=== PATIENT | female | born 1945 | race Caucasian/White ===

== ENCOUNTER 2020-01-28 15:56 | Emergency (ER) | payer MEDICARE, SELFPAY ==
--- NOTE | ~2020-01-28 | XR_ITS ---
XR knee RT min 4V 01/28/2020 17:38 INDICATION: Right knee pain after fall PROCEDURE: 4 views right knee COMPARISON: Comparison to multiple prior studies sequentially, with oldest reviewed study dated 05/20. FINDINGS: Fracture, dislocation or subluxation is not identified. Osteopenia. Moderate prepatellar so ft tissue swelling. No significant joint space narrowing. No foreign bodies are identified. IMPRESSION: 1: NO ACUTE BONE OR JOINT ABNORMALITY IDENTIFIED. Reviewed, dictated and finalized at location A. 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
--- NOTE | ~2020-01-28 | CT_ITS ---
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 TECHNIQUE: Computed tomography (CT) of the pelvis was performed without intravenous contrast. CT tracy nstructions of the right knee were obtained in the axial, coronal, and sagittal planes. The dose-jimena th product was 322.30 mGy-cm. Automated exposure control and iterative reconstruction technique were employed. COMPARISON: Right knee series dated 01/28/2020 FINDINGS: There is anatomic alignment of the right knee. No acute fracture, subluxation or dislocatio n. Small loose body noted in the anterior aspect of the joint space. Small joint effusion. Generalize d osteopenia. IMPRESSION: 1. No acute fracture. If there is continuing concern for subtle nondisplaced fracture, further evalua tion with MRI may be performed. 2: Small joint effusion. Reviewed, dictated and finalized at location A. 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 No acute fracture. If there is continuing concern for subtle nondisplaced fr acture, further evaluation with MRI may be performed. 2: Small joint effusion.
[2020-01-28 16:39] VITALS: BP 140/84; PULSE 71; RESP 20; TEMP 36.4; O2SAT 98
--- NOTE | 2020-01-28 17:39 | ED.FALL ---
HPI - Fall General Source: patient and family Mode of arrival: ambulatory Limitations: no limitations History of Present Illness HPI Narrative: She comes in after having a fall on Sunday. She has had continual right knee pain moderately severe, and ongoing since the fall. This has not been relieved by measures taken at home. She fell on her right knee, a few days ago and has had ongoing pain since that fall as well. Related Data Home Medications Medication Instructions Recorded Confirmed alprazolam 0.5 mg PO DAILY PRN 01/28/20 01/28/20 amlodipine 10 mg PO DAILY 01/28/20 01/28/20 metformin 500 mg PO BID 01/28/20 01/28/20 mirtazapine 15 mg PO HS 01/28/20 01/28/20 omeprazole 40 mg PO DAILY 01/28/20 01/28/20 Allergies Allergy/AdvReac Type Severity Reaction Status Date / Time albuterol Allergy Unknown Unknown Verified 01/28/20 16:48 Antihistamines - Alkylamine Allergy Unknown Unknown Verified 01/28/20 16:48 atorvastatin Allergy Unknown Unknown Verified 01/28/20 16:48 ciprofloxacin Allergy Unknown Unknown Verified 01/28/20 16:48 sulfanilamide Allergy Unknown Unknown Verified 01/28/20 16:48 Review of Systems Constitutional: Constitutional: Reports no additional constitutional complaints Eyes: Eyes: Reports no additional eye complaints ENT: Reports system reviewed and no additional complaints, except as documented Cardiovascular: Cardiovascular: Reports no additional cardiovascular complaints Respiratory: Respiratory: Reports no additional respiratory complaints Gastrointestinal: Gastrointestinal: Reports no additional gastrointestinal complaints Genitourinary: Genitourinary: Reports no additional female genitourinary complaints Musculoskeletal: Musculoskeletal: Reports no additional musculoskeletal complaints Integumentary/Breasts: Skin/Breast: Reports system reviewed and no additional complaints, except as docu Neurologic: Reports system reviewed and no additional complaints, except as documented Psychiatric: Psychiatric: Reports no additional psychiatric complaints Endocrine: Endocrine: Reports no additional endocrine complaints Hematologic/Lymphatic: Hematologic/Lymphatic: Reports no additional hematologic/lymphatic complaints Allergic/Immunologic: Allergic/Immunologic: Reports no additional allergic/immunologic complaints [facility] Family History Family History Sibling Cerebrovascular accident Family history of diabetes mellitus in first degree relative Father Family history of congestive heart failure Other Family history of cardiovascular disease Social History Social History Alcohol intake: never Gender identity (if verbalized by the patient): Female Exam Const: General: no acute distress Course Vital Signs Vital signs: Vital Signs Temperature 36.4 C 01/28/20 16:39 Pulse Rate 71 01/28/20 16:39 Respiratory Rate 20 01/28/20 16:39 Blood Pressure 140/84 01/28/20 16:39 Pulse Oximetry 98 01/28/20 16:39 Temperature 36.4 C 01/28/20 16:39 Pulse Rate 63 01/28/20 18:50 Respiratory Rate 20 01/28/20 18:50 Blood Pressure 140/84 01/28/20 16:39 Pulse Oximetry 97 01/28/20 18:50 Discharge Plan Discharge Clinical Impression: Acute knee pain Patient Disposition: Home, Self-Care Condition: Stable Instructions: Antibiotic Form Additional Instructions: Follow up with family doctor soon if you continue to have pain. Prescriptions: New ketorolac 10 mg tablet 10 mg PO QID PRN (Reason: pain) 5 Days Qty: 20 RF: 0 No Action metformin 500 mg tablet 500 mg PO BID RF: 0 omeprazole 40 mg capsule,delayed release(DR/EC) 40 mg PO DAILY RF: 0 alprazolam 0.5 mg tablet 0.5 mg PO DAILY PRN (Reason: Anxiety) RF: 0 amlodipine 10 mg tablet 10 mg PO DAILY RF: 0 mirtazapine 15 mg tablet 15 mg PO HS RF: 0 Follow-up/Referr
[2020-01-28] MEDS: KETOROLAC 10 MG TABLET PO (18:21)
[2020-01-28 18:50] VITALS: PULSE 63; RESP 20; O2SAT 97
--- NOTE | 2020-01-31 09:45 | ED.FALL ---
HPI - Fall General Chief Complaint: Fall Stated Complaint: r knee Time Seen by Provider: 01/28/20 16:50 Source: patient Mode of arrival: ambulatory Limitations: no limitations History of Present Illness HPI Narrative: Patient comes in with moderately severe ongoing right knee pain after a fall two days ago. Pain is not decreased by tylenol, or measures at home. She has fallen multiple times on this knee. MD complaint: fall Fall from: standing Place fall occurred: home Loss of consciousness: none Severity: moderate Severity scale (1-10): 7 Quality: sharp Associated symptoms (after fall): denies Related Data Home Medications Medication Instructions Recorded Confirmed alprazolam 0.5 mg PO DAILY PRN 01/28/20 01/28/20 amlodipine 10 mg PO DAILY 01/28/20 01/28/20 metformin 500 mg PO BID 01/28/20 01/28/20 mirtazapine 15 mg PO HS 01/28/20 01/28/20 omeprazole 40 mg PO DAILY 01/28/20 01/28/20 Allergies Allergy/AdvReac Type Severity Reaction Status Date / Time albuterol Allergy Unknown Unknown Verified 01/28/20 16:48 Antihistamines - Alkylamine Allergy Unknown Unknown Verified 01/28/20 16:48 atorvastatin Allergy Unknown Unknown Verified 01/28/20 16:48 ciprofloxacin Allergy Unknown Unknown Verified 01/28/20 16:48 sulfanilamide Allergy Unknown Unknown Verified 01/28/20 16:48 Review of Systems Constitutional: Constitutional: Reports no additional constitutional complaints Eyes: Eyes: Reports no additional eye complaints ENT: Reports system reviewed and no additional complaints, except as documented Cardiovascular: Cardiovascular: Reports no additional cardiovascular complaints Respiratory: Respiratory: Reports no additional respiratory complaints Gastrointestinal: Gastrointestinal: Reports no additional gastrointestinal complaints Genitourinary: Genitourinary: Reports no additional female genitourinary complaints Musculoskeletal: Musculoskeletal: Reports no additional musculoskeletal complaints Integumentary/Breasts: Skin/Breast: Reports system reviewed and no additional complaints, except as docu Neurologic: Reports system reviewed and no additional complaints, except as documented Psychiatric: Psychiatric: Reports no additional psychiatric complaints Endocrine: Endocrine: Reports no additional endocrine complaints Hematologic/Lymphatic: Hematologic/Lymphatic: Reports no additional hematologic/lymphatic complaints Allergic/Immunologic: Allergic/Immunologic: Reports no additional allergic/immunologic complaints [facility] Family History Family History Sibling Cerebrovascular accident Family history of diabetes mellitus in first degree relative Father Family history of congestive heart failure Other Family history of cardiovascular disease Social History Social History Alcohol intake: never Gender identity (if verbalized by the patient): Female Exam Narrative: Exam Narrative: Patient comes in with moderately severe right knee pain after a fall 2 days ago. Pain is ongoing sharp, not relieved by measures at home. Nothing makes it better. Const: General: healthy appearing and no acute distress HENMT: Head: normal to inspection Ears: TM's normal bilaterally Face and sinus: normal facial exam Mouth: Yes moist mucous membranes Throat: posterior oropharynx normal Eyes: Conjunctivae: conjunctivae normal Neck: Neck: normal visual inspection Chest: Chest palpation & inspection: normal inspection of the chest Resp: Auscultation: diminished lung sounds Cardio: Rate: regular rate Rhythm: regular rhythm GI: Auscultation: normal bowel sounds Skin: General skin exam: normal color Neuro: General: patient oriented x3 and moves all extremities Extrem: General: normal to inspection Other: Exam to knee she fell on appears within normal limits. Psych: Mental Status: mental status grossly normal
== END 2020-01-28 18:50 | disposition home or self-care (01) ==
PROVIDERS: Emergency Provider Emergency Medicine; PCP Family Medicine
DX: M25.561 Pain in right knee (principal)
CPT/HCPCS: 73564; 73700; 99283; 99284; A9270

== ENCOUNTER 2020-02-18 17:21 | Outpatient (CLI) | payer MEDICARE, SELFPAY ==
[2020-02-20 18:46] LABS: SARS-CoV-2 RNA PCR Negative
== END 2020-02-18 17:22 | disposition home or self-care (01) ==
LOC: CHSLAB 17:22
PROVIDERS: PCP Family Medicine; Visit Provider Family Medicine
DX: R19.7 Diarrhea, unspecified (principal); Z20.822 Contact with and (suspected) exposure to COVID-19
CPT/HCPCS: C9803; U0003; U0005

== ENCOUNTER 2020-02-19 16:55 | Outpatient (NON) | payer MEDICARE, SELFPAY ==
[2020-02-19 19:13] LABS: Occult Blood Negative (Negative)
[2020-02-23 21:11] LABS: Lactoferrin, Stool Negative (Negative)
[2020-02-24 12:16] LABS: Fecal Fat, Ql Normal (Normal)
== END 2020-02-19 16:56 ==
LOC: CHSLAB 16:56
PROVIDERS: PCP Family Medicine; Visit Provider Family Medicine
DX: R19.7 Diarrhea, unspecified (principal)
CPT/HCPCS: 82272; 82705; 83630; 84376; 87045; 87046; 87177; 87209; 87427

== ENCOUNTER 2020-08-13 19:09 | Emergency (ER) | payer MEDICARE, SELFPAY ==
--- NOTE | ~2020-08-13 | CT_ITS ---
EXAMINATION: CT chest abdomen pelvis w con DATE: 08/13/2020 21:39 CDT INDICATION: Nausea, vomiting and diarrhea for several months. Smoker. TECHNIQUE: Computed tomography (CT) of the chest, abdomen, and pelvis was performed with 92 cc Omnipa que 350 intravenous contrast. The dose-length product was 218.74 mGy-cm. Automated exposure control a nd iterative reconstruction technique were employed. COMPARISON: CT dated 10/01/2018 FINDINGS: CHEST CT: There is emphysema. There are a few small 2 mm nodules in the lungs, likely benign. No focal airspace consolidation. No endobronchial lesions. No pneumothorax. There are gland is unremarkable. There is atherosclerosis of the aorta and coronary arteries. Heart size normal. No significant pleural or geetha cardial effusion. ABDOMEN/PELVIS CT: Status post cholecystectomy with expected prominence of the bile ducts. There is hepatomegaly. There are calcified granulomas of the spleen. The pancreas, adrenal glands are unremarkable. There is bilat eral renal cortical thinning. Calcified lymph nodes are identified along the lesser curvature of the stomach. No free air or free fluid. Nonobstructive bowel gas pattern. There are stents in the iliac a rteries bilaterally. There is a superior endplate compression fracture of T12 which is new since prio r examination. There is accentuated thoracic kyphosis. Severe lower lumbar spondylosis. IMPRESSION: 1. No etiology for patient's symptoms. No acute abnormalities. 2: Emphysema. 3: Hepatomegaly. 4: Mild superior endplate compression fracture of T12, likely chronic, although new since CT dated . Reviewed, dictated and finalized at location A. IMPRESSION: 1. No etiology for patient's symptoms. No acute abnormalities. 2: Emphysema. 3: Hepatomegaly. 4: Mild superior endplate compression fracture of T12, likely chronic, althoug h new since CT dated 10/01/2018.
[2020-08-13 19:12] VITALS: BP 150/71; PULSE 82; RESP 16; TEMP 36.6; O2SAT 97
[2020-08-13] MEDS: ONDANSETRON INJ 4 MG/2 ML VIAL IV PUSH (19:40)
[2020-08-13] MEDS: SODIUM CHLORIDE 0.9% IV 1,000 ML 500 ML IV CONT (19:40)
--- NOTE | 2020-08-13 19:40 | ED.NAVMDI ---
HPI - Nausea/Vomiting/Diarrhea General Chief complaint: Nausea/Vomiting/Diarrhea Stated complaint: can not stop vomitting Time Seen by Provider: 08/13/20 19:10 Source: patient and family Mode of arrival: ambulatory Limitations: no limitations History of Present Illness HPI Narrative: Patient comes in with recurrent nausea and emesis at home. It sounds like she has had nausea and vomiting as an ongoing problem according to her , that waxes and wanes. She had been doing ok last week until today. She ate a sandwich that he brought home from [employer]. It sounds like she does not get out much and is dependent on him bringing food home to her. She ate the sandwich from [employer] this am early for lunch today. She has had recurrent nausea and emesis. She now talks about how the sandwich tasted strong. Nausea and emesis has been ongoing, estimated since 11 am today, moderately severe, not relieved by an old zofran taken at home, or by soda. She says she is throwing up bile material. No other signs/symptoms. No fever, chills, shortness of breath, no other symptoms. MD elicited complaint: nausea and vomiting Onset (ago): hour(s) Description of vomiting: food contents and bilious Associated nausea: Yes Associated abdominal pain: No Severity: moderate Exacerbating factors: eating Relieving factors: other (refraining from eating) Context: possible food poisoning Associated symptoms: denies other symptoms Treatment prior to arrival: other (soda, crackers) Related Data Home Medications Medication Instructions Recorded Confirmed alprazolam 0.5 mg PO DAILY PRN 01/28/20 08/13/20 amlodipine 10 mg PO DAILY 01/28/20 08/13/20 metformin 500 mg PO BID 01/28/20 08/13/20 mirtazapine 15 mg PO HS 01/28/20 08/13/20 omeprazole 40 mg PO DAILY 01/28/20 08/13/20 Allergies Allergy/AdvReac Type Severity Reaction Status Date / Time albuterol Allergy Unknown Unknown Verified 01/28/20 16:48 Antihistamines - Alkylamine Allergy Unknown Unknown Verified 01/28/20 16:48 atorvastatin Allergy Unknown Unknown Verified 01/28/20 16:48 ciprofloxacin Allergy Unknown Unknown Verified 01/28/20 16:48 sulfanilamide Allergy Unknown Unknown Verified 01/28/20 16:48 Review of Systems Constitutional: Constitutional: Reports no additional constitutional complaints Eyes: Eyes: Reports no additional eye complaints ENT: Reports system reviewed and no additional complaints, except as documented Cardiovascular: Cardiovascular: Reports no additional cardiovascular complaints Respiratory: Respiratory: Reports no additional respiratory complaints Gastrointestinal: Gastrointestinal: Reports no additional gastrointestinal complaints Genitourinary: Genitourinary: Reports no additional female genitourinary complaints Musculoskeletal: Musculoskeletal: Reports no additional musculoskeletal complaints Integumentary/Breasts: Skin/Breast: Reports system reviewed and no additional complaints, except as docu Neurologic: Reports system reviewed and no additional complaints, except as documented Psychiatric: Psychiatric: Reports no additional psychiatric complaints Endocrine: Endocrine: Reports no additional endocrine complaints Hematologic/Lymphatic: Hematologic/Lymphatic: Reports no additional hematologic/lymphatic complaints Allergic/Immunologic: Allergic/Immunologic: Reports no additional allergic/immunologic complaints PMF Family History Family History Sibling Cerebrovascular accident Family history of diabetes mellitus in first degree relative Father Family history of congestive heart failure Other Family history of cardiovascular disease Social History Social History Alcohol intake: never Gender identity (if verbalized by the patient): Female Exam Const: General: no acute distress and alert Orientation/consciousness: patient oriented x3 HENMT:
[2020-08-13 19:52] LABS: Basophils Absolute Auto 0.01 K/mm3 (0.00-0.10); Basophils Percent Auto 0.1 % (0.0-1.0); Hematocrit 34.7 % (35.0-42.0); Hemoglobin 11.5 g/dL (11.7-13.8); Immature Granulocyte Absolute 0.03 K/mm3 (0.00-0.00); Immature Granulocyte Percent A 0.3 % (0.0-0.0); Lymphocytes Absolute Auto 1.64 K/mm3 (1.10-4.50); Lymphocytes Percent Auto 14.9 % (18.0-42.0); Mean Corpuscular HGB Conc 33.1 g/dL (32.0-36.0); Mean Corpuscular Volume 96.7 fL (78.0-102.0); Mean Platelet Volume 11.3 fl (9.2-11.8); Monocytes Absolute Auto 0.75 K/mm3 (0.10-0.90); Monocytes Percent Auto 6.8 % (2.0-11.0); Neutrophils Absolute Auto 8.6 K/mm3 (1.7-7.2); Neutrophils Percent Auto 77.9 % (50.0-70.0); Platelet Count Result 277 K/mm3 (150-420); Red Blood Count 3.59 M/mm3 (4.20-5.40)
[2020-08-13 20:09] LABS: Alanine Aminotransferase 27 U/L (14-59); Albumin Level 3.8 g/dL (3.4-5.0); Alkaline Phosphatase 106 U/L (46-116); Anion Gap 11 mmol/L (8-16); Aspartate Amino Transferase 21 U/L (15-37); Bilirubin,Total 0.3 mg/dL (0.00-1.00); Blood Urea Nitrogen 35 mg/dL (7-18); Calcium 9.1 mg/dL (8.5-10.1); Carbon Dioxide 25 mmol/L (21-32); Chloride 98 mmol/L (98-108); Estimated CRCL calculation 24 ml/min; Estimated Glomerular Filt Rate 43; Glucose 171 mg/dL (70-99); Lipase 38 U/L (73-393); Osmolality Calculated 290 mOsm/kg (285-295); Potassium 5.9 mmol/L (3.5-5.1); Sodium 134 mmol/L (136-145); Total Protein 7.8 g/dL (6.4-8.2)
--- NOTE | 2020-08-13 20:11 | PC.NURSE ---
erp dr. 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
[2020-08-13 20:14] LABS: Lactic Acid Reflex 1.7 mmol/L (0.4-2.0)
[2020-08-13 20:35] LABS: Appearance Urine Clear (Clear); Bilirubin Urine Negative (Negative); Color Urine Light Yellow (Yellow); Glucose Urine UA Negative (Negative); Ketones Urine Negative (Negative); Leukocyte Esterase Ur Negative LEU/UL (Negative); Nitrate Urine Negative (Negative); Protein Urine Negative (Negative); Urobilinogen Urine 0.2 mg/dL (0.2-1.0); pH Urine 5.5 (5.0-8.0)
[2020-08-13 20:41] LABS: Add Urine Microscopic? YES; Bacteria Urine 2+ /hpf; Blood Urine Trace-Intact (Negative); RBC Urine 0-2 /hpf (0-2); Squamous Epithelial Cell Urine Few /hpf (Few); WBC Urine 0-3 /hpf (0-3)
[2020-08-13 22:10] VITALS: BP 121/55; PULSE 73; RESP 14; TEMP 36.7; O2SAT 95
== END 2020-08-13 22:14 | disposition home or self-care (01) ==
PROVIDERS: Emergency Provider Emergency Medicine; PCP Family Medicine
DX: A05.9 Bacterial foodborne intoxication, unspecified (principal)
CPT/HCPCS: 36415; 71260; 74177; 80053; 81001; 83605; 83690; 85025; 96361; 96374; 99283; 99284; J2405; J7030; Q9967

== ENCOUNTER 2020-09-24 20:00 | Emergency (ER) | payer MEDICARE, SELFPAY ==
--- NOTE | ~2020-09-24 | CT_ITS ---
EXAMINATION: CT brain wo con DATE: 09/24/2020 21:30 INDICATION: Headaches, dizziness, vomiting for one day TECHNIQUE: Computed tomography (CT) of the head was performed without intravenous contrast. The mA wa s adjusted according to patient size. Iterative reconstruction technique was employed. Exam dose: 75 6.67 mGy-cm total exam DLP. COMPARISON: 08/06/2017 CT brain FINDINGS: No intracranial mass lesion or hemorrhage or cerebrovascular accident. No midline shift or mass effect. There is moderate cerebral cortical volume loss, most prominent in the frontal lobes. There is nonspecific mildly diminished attenuation of the cerebral white matter, likely due to chroni c small vessel ischemic changes. Bilateral carotid siphon internal carotid artery calcifications. No subdural or epidural hematoma. No orbital mass lesion. The mastoid air cells are normally developed and aerated. Middle and inner ear apparatus appear unrem arkable. The paranasal sinuses are normally developed and aerated. No fracture or bone destruction of the cranial vault. IMPRESSION: Cerebral atherosclerosis and chronic small vessel ischemic changes of the cerebral white matter No acute intracranial finding Reviewed, dictated and finalized at [facility]. Reviewed, dictated and finalized at location A.
--- NOTE | ~2020-09-24 | XR_ITS ---
XR abdomen obstructive series DATE: 09/24/2020 21:31 INDICATION: Nausea and vomiting for one day TECHNIQUE: Supine and upright AP view COMPARISON: 08/13/2020 CT chest abdomen pelvis FINDINGS: Surgical clips, right upper quadrant, consistent with cholecystectomy. Prominent calcifications. Gastrohepatic lymph nodes. Distal abdominal aortic stent extending into both common iliac arteries. The psoas shadows are intact. No visceromegaly. No bowel obstruction is evident. There is no evidence of intraperitoneal free air. The lower lung zones appear clear. No pleural effusion. Diffuse osteopenia. IMPRESSION: No bowel obstruction or intraperitoneal free air Reviewed, dictated and finalized at [facility]. Reviewed, dictated and finalized at location A.
[2020-09-24 20:05] VITALS: BP 153/64; PULSE 92; RESP 18; TEMP 36.4; O2SAT 97
--- NOTE | 2020-09-24 20:23 | ED.NAVMDI ---
HPI - Nausea/Vomiting/Diarrhea General Chief complaint: Nausea/Vomiting/Diarrhea Stated complaint: vomiting Time Seen by Provider: 09/24/20 20:24 Source: patient Mode of arrival: wheelchair Limitations: no limitations History of Present Illness HPI Narrative: 74-year-old woman comes in today complaining of vomiting that started this morning. She states she last ate yesterday and only ate a bowl of cereal. She states she has had this problem for and she does know why it happens. She denies fever, cough or cold symptoms, shortness of breath, chest pain, abdominal pain, diarrhea, dysuria and hematuria. She states that she has not passed out or felt lightheaded. She takes an aspirin every day for headaches. She denies black or bloody stools or blood in her vomitus. She lives with her granddaughter and her granddaughters children and her is home on weekends. She has had no sick contacts. MD elicited complaint: nausea and vomiting Onset (ago): hour(s) (12) Description of vomiting: food contents Associated nausea: Yes Associated abdominal pain: No Severity: moderate Exacerbating factors: eating Relieving factors: none Context: smoking Associated symptoms: headaches Related Data Home Medications Medication Instructions Recorded Confirmed alprazolam 0.5 mg PO BID 01/28/20 09/24/20 amlodipine 10 mg PO DAILY 01/28/20 09/24/20 metformin 500 mg PO BID 01/28/20 09/24/20 mirtazapine 15 mg PO HS 01/28/20 09/24/20 omeprazole 40 mg PO DAILY 01/28/20 09/24/20 irbesartan 300 mg PO DAILY 09/24/20 09/24/20 propranolol 20 mg PO BID 09/24/20 09/24/20 Allergies Allergy/AdvReac Type Severity Reaction Status Date / Time albuterol Allergy Unknown Unknown Verified 01/28/20 16:48 Antihistamines - Alkylamine Allergy Unknown Unknown Verified 01/28/20 16:48 atorvastatin Allergy Unknown Unknown Verified 01/28/20 16:48 ciprofloxacin Allergy Unknown Unknown Verified 01/28/20 16:48 sulfanilamide Allergy Unknown Unknown Verified 01/28/20 16:48 Review of Systems Review of Systems: All systems reviewed & are unremarkable except as noted in HPI and below Constitutional: Constitutional: Denies chills and Denies fever(s) Eyes: Eyes: Denies change in vision and Denies photophobia ENT: Denies nasal congestion and Denies sore throat Cardiovascular: Cardiovascular: Denies chest pain and Denies radiating jaw, neck or arm pain Respiratory: Respiratory: Denies cough, Denies dyspnea and Denies wheezing Gastrointestinal: Gastrointestinal: Denies abdominal pain, Denies diarrhea, Reports nausea and Reports vomiting Genitourinary: Genitourinary: Denies hematuria and Denies dysuria Musculoskeletal: Musculoskeletal: Denies back pain, Denies arthralgias and Denies joint swelling Integumentary/Breasts: Skin/Breast: Denies pruritus, Denies erythema and Denies rash Endocrine: Endocrine: Denies fatigue and Denies polyuria Hematologic/Lymphatic: Hematologic/Lymphatic: Denies easy bleeding and Denies easy bruising Allergic/Immunologic: Allergic/Immunologic: Denies lip swelling and Denies throat swelling PMFSH Past Medical History Medical History (Updated 09/24/20 @ 22:53 by Juan Lizama MD) Anxiety Hypertension Surgical History Surgical History (Updated 09/24/20 @ 20:35 by Juan Lizama MD) History of hysterectomy Hx of cholecystectomy Previous back surgery Family History Family History Sibling Cerebrovascular accident Family history of diabetes mellitus in first degree relative Father Family history of congestive heart failure Other Family history of cardiovascular disease Social History Social History (Updated 09/24/20 @ 20:35 by Juan Lizama MD) Smoking status: Current every day smoker Alcohol intake: never Substance use: never Living arrangements: with family Gender identity (if verbalized by the patient): Female Exam Const: General: alert a
--- NOTE | 2020-09-24 20:41 | ECG_ITS ---
Measurements Intervals [place] Rate: 71 P: 73 [place]: 166 QRS: 66 QRSD: 108 T: 69 QT: 390 QTc: 427 Interpretive Statements SINUS RHYTHM LEFT ATRIAL ENLARGEMENT CANNOT RULE OUT SEPTAL INFARCT, AGE INDETERMINATE BASELINE ARTIFACT- I, II, III, AVR, AVL, AVF, V1-V6 ABNORMAL ECG Electronically Signed On 09-24-2020 21:11:38 CDT by Dereck Brown D.O.
[2020-09-24] MEDS: ONDANSETRON INJ 4 MG/2 ML VIAL IV PUSH (20:45)
[2020-09-24 21:10] LABS: Basophils Absolute Auto 0.01 K/mm3 (0.00-0.10); Basophils Percent Auto 0.1 % (0.0-1.0); Hematocrit 38.6 % (35.0-42.0); Hemoglobin 12.3 g/dL (11.7-13.8); Immature Granulocyte Absolute 0.06 K/mm3 (0.00-0.00); Immature Granulocyte Percent A 0.7 % (0.0-0.0); Lymphocytes Absolute Auto 1.14 K/mm3 (1.10-4.50); Lymphocytes Percent Auto 12.7 % (18.0-42.0); Mean Corpuscular HGB Conc 31.9 g/dL (32.0-36.0); Mean Corpuscular Hemoglobin 31.2 pg (27.0-31.0); Mean Platelet Volume 11.1 fl (9.2-11.8); Monocytes Absolute Auto 0.63 K/mm3 (0.10-0.90); Neutrophils Absolute Auto 7.2 K/mm3 (1.7-7.2); Neutrophils Percent Auto 79.5 % (50.0-70.0); Platelet Count Result 304 K/mm3 (150-420); Red Blood Count 3.94 M/mm3 (4.20-5.40); Red Cell Distribution Width 12.6 % (11.6-14.4)
[2020-09-24 21:13] LABS: Add Urine Microscopic? YES; Appearance Urine Clear (Clear); Bilirubin Urine 1+ (Negative); Blood Urine Negative (Negative); Color Urine Light Yellow (Yellow); Glucose Urine UA Negative (Negative); Ketones Urine 1+ (Negative); Leukocyte Esterase Ur Negative LEU/UL (Negative); Nitrate Urine Negative (Negative); Protein Urine Negative (Negative); Specific Grav Ur 1.025 (1.010-1.020); Urobilinogen Urine 0.2 mg/dL (0.2-1.0)
[2020-09-24] MEDS: SODIUM CHLORIDE 0.9% IV 1,000 ML 999 ML IV CONT ×2 (21:18→22:28)
[2020-09-24 21:19] LABS: Alanine Aminotransferase 18 U/L (14-59); Albumin Level 4.3 g/dL (3.4-5.0); Alkaline Phosphatase 100 U/L (46-116); Anion Gap 16 mmol/L (8-16); Aspartate Amino Transferase 14 U/L (15-37); Bilirubin,Total 0.4 mg/dL (0.00-1.00); Blood Urea Nitrogen 51 mg/dL (7-18); Calcium 9.2 mg/dL (8.5-10.1); Carbon Dioxide 23 mmol/L (21-32); Chloride 97 mmol/L (98-108); Estimated CRCL calculation 19 ml/min; Estimated Glomerular Filt Rate 31; Glucose 169 mg/dL (70-99); Lipase 40 U/L (73-393); Osmolality Calculated 299 mOsm/kg (285-295); Potassium 5.2 mmol/L (3.5-5.1); Sodium 136 mmol/L (136-145); Total Protein 8.9 g/dL (6.4-8.2)
[2020-09-24 21:21] LABS: Troponin I 10.9 ng/L (0.00-60.4)
[2020-09-24 21:22] LABS: RBC Urine 0-2 /hpf (0-2); Squamous Epithelial Cell Urine Few /hpf (Few); WBC Urine 0-3 /hpf (0-3)
[2020-09-24 21:23] LABS: Bacteria Urine Trace /hpf
[2020-09-24] MEDS: PANTOPRAZOLE SODIUM IV 40 MG VIAL IV PUSH (22:29)
--- NOTE | 2020-09-24 22:29 | PC.NURSE ---
REPORT PROVIDED TO FRANCHESCA DEE
[2020-09-24 23:26] VITALS: BP 124/59; PULSE 87; RESP 18; TEMP 37.1; O2SAT 97
== END 2020-09-24 23:29 | disposition home or self-care (01) ==
PROVIDERS: Emergency Provider Emergency Medicine; PCP Family Medicine
DX: N17.9 Acute kidney failure, unspecified (principal); R11.2 Nausea with vomiting, unspecified; E86.0 Dehydration; E87.5 Hyperkalemia
CPT/HCPCS: 36415; 70450; 74019; 80053; 81001; 83690; 84484; 85025; 87040; 93005; 96361; 96374; 96375; 99283; 99284; C9113; J2405; J7030

== ENCOUNTER 2020-09-27 10:16 | Outpatient (CLI) | payer MEDICARE, SELFPAY ==
[2020-09-27 11:48] LABS: SARS-CoV-2 Ag Negative (Negative)
[2020-09-27 12:36] LABS: Anion Gap 9 mmol/L (8-16); Blood Urea Nitrogen 32 mg/dL (7-18); Carbon Dioxide 26 mmol/L (21-32); Chloride 101 mmol/L (98-108); Estimated Glomerular Filt Rate 41; Glucose 141 mg/dL (70-99); Osmolality Calculated 290 mOsm/kg (285-295); Sodium 136 mmol/L (136-145)
== END 2020-09-27 10:17 | disposition home or self-care (01) ==
LOC: CHSLAB 10:23
PROVIDERS: PCP Family Medicine; Visit Provider Family Medicine
DX: Z20.822 Contact with and (suspected) exposure to COVID-19 (principal); E87.5 Hyperkalemia
CPT/HCPCS: 36415; 80048; 87426; C9803

== ENCOUNTER 2020-10-02 15:41 | Outpatient (CLI) | payer MEDICARE, SELFPAY ==
[2020-10-02 16:39] LABS: Anion Gap 5 mmol/L (8-16); Blood Urea Nitrogen 27 mg/dL (7-18); Calcium 8.2 mg/dL (8.5-10.1); Carbon Dioxide 29 mmol/L (21-32); Chloride 105 mmol/L (98-108); Estimated Glomerular Filt Rate 41; Glucose 164 mg/dL (70-99); Osmolality Calculated 297 mOsm/kg (285-295); Potassium 4.5 mmol/L (3.5-5.1); Sodium 139 mmol/L (136-145)
== END 2020-10-02 15:42 | disposition home or self-care (01) ==
LOC: CHSLAB 15:44
PROVIDERS: PCP Family Medicine; Visit Provider Family Medicine
DX: E87.5 Hyperkalemia (principal); N17.9 Acute kidney failure, unspecified
CPT/HCPCS: 36415; 80048

== ENCOUNTER 2020-12-14 14:33 | Emergency (ER) | payer MEDICARE, SELFPAY ==
--- NOTE | ~2020-12-14 | CT_ITS ---
EXAMINATION: CT brain wo con EXAM DATE: 12/14/2020 15:52 INDICATION: Altered mental status AMS. Fall memory loss of event. TECHNIQUE: Spiral CT of the head was performed without contrast. Axial, coronal and sagittal images were reviewed. The dose-length product (DLP) for this examination was 681.00 mGy-cm. The exposure w as tailored according to patient size, and iterative reconstruction (ASIR) was used as additional dos e reduction technique. There is no prior study for comparison. FINDINGS: There is no acute intraparenchymal hemorrhage. No evidence of intraparenchymal brain mass lesion. No evidence of acute infarction. Please note that initial head CT has limited sensitivity f or small or acute infarctions. There is mild periventricular and subcortical hypodensity, nonspecific but probably related to small vessel ischemic disease. There is moderate prominence of the sulci a nd ventricles related to cerebral atrophy. There is intracranial carotid arteriosclerosis. There a re no extra-axial collections. There is no mass effect or midline shift. Patient has had bilateral ocular lens surgery. Soft tissue is unremarkable. The visualized sinuses and mastoid air cells are well aerated. IMPRESSION: 1. No acute intracranial findings. 2. Chronic age related findings. Reviewed, dictated and finalized at location A. TY DIRECTOR
--- NOTE | ~2020-12-14 | XR_ITS ---
EXAMINATION: XR chest 1V portable INDICATION: Cough TECHNIQUE: Portable AP chest at 1536 hours COMPARISON: 09/24/2017 FINDINGS: The lungs are hyperinflated but free of acute opacities. There is no pleural effusion or pn eumothorax. The heart size is normal. Calcified mediastinal lymph nodes are consistent with old granu lomatous disease. IMPRESSION: 1. No acute cardiopulmonary abnormality. Reviewed, dictated and finalized at location B. TWISTER WINDER
--- NOTE | ~2020-12-14 | XR_ITS ---
EXAMINATION: XR knee RT 3V EXAM DATE: 12/14/2020 15:51 INDICATION: Right knee pain. Status post fall. Initial encounter. TECHNIQUE: Three projections of the right knee. Comparison is made to prior examination from 01/28/20. FINDINGS: No evidence osteochondral defect or joint body in the right knee joint. There are no acut e fractures or dislocations identified. There is no subcutaneous gas. Mild arteriosclerosis distal aspect superficial femoral artery. There is no joint effusion. There are no radiopaque foreign yvette s. There is minimal primary osteoarthritis. IMPRESSION: 1. XR knee RT 3V exam without acute osseous findings. Reviewed, dictated and finalized at location A. ITORY SALES CONSULTANT
[2020-12-14 14:47] VITALS: BP 133/56; PULSE 85; RESP 16; TEMP 37.5; O2SAT 96
--- NOTE | 2020-12-14 14:54 | ED.GENADULT ---
HPI - General Adult General Chief complaint: Fall Stated complaint: confusion/found on floor Time Seen by Provider: 12/14/20 14:54 Source: patient Mode of arrival: ambulatory History of Present Illness HPI narrative: 75-year-old female smoker with a history of anxiety, hypertension, Casillas's palsy, COPD was found By her granddaughter -- on the floor without proper clothing. She had no recollection as to how she got that. She was noted to be in position. No obvious injuries noted. Subsequently this is alert and oriented without deficits -- complains of right knee pain. No prior history of trauma. -- Patient had questionable fever yesterday. The patient got her booster dose of Moderna vaccination 4 days ago. Onset (ago): unknown Location: lower extremity ( right knee pain) Pain Consistency: intermittent Relieving factors: none Exacerbating factors: none Associated symptoms: confusion, cough ( chronic cough) and shortness of breath ( chronic shortness of breath.) Related Data Home Medications Medication Instructions Recorded Confirmed alprazolam 0.5 mg PO BID 01/28/20 09/24/20 amlodipine 10 mg PO DAILY 01/28/20 09/24/20 metformin 500 mg PO BID 01/28/20 09/24/20 mirtazapine 15 mg PO HS 01/28/20 09/24/20 omeprazole 40 mg PO DAILY 01/28/20 09/24/20 irbesartan 300 mg PO DAILY 09/24/20 09/24/20 propranolol 20 mg PO BID 09/24/20 09/24/20 Allergies Allergy/AdvReac Type Severity Reaction Status Date / Time albuterol Allergy Unknown Unknown Verified 01/28/20 16:48 Antihistamines - Alkylamine Allergy Unknown Unknown Verified 01/28/20 16:48 atorvastatin Allergy Unknown Unknown Verified 01/28/20 16:48 ciprofloxacin Allergy Unknown Unknown Verified 01/28/20 16:48 sulfanilamide Allergy Unknown Unknown Verified 01/28/20 16:48 Review of Systems Review of Systems: All systems reviewed & are unremarkable except as noted in HPI and below Constitutional: Constitutional: Reports no additional constitutional complaints Eyes: Eyes: Reports no additional eye complaints ENT: Reports system reviewed and no additional complaints, except as documented Cardiovascular: Cardiovascular: Reports no additional cardiovascular complaints Respiratory: Respiratory: Reports cough and Reports dyspnea Gastrointestinal: Gastrointestinal: Reports no additional gastrointestinal complaints Genitourinary: Genitourinary: Reports no additional female genitourinary complaints Integumentary/Breasts: Skin/Breast: Reports system reviewed and no additional complaints, except as docu Neurologic: Reports system reviewed and no additional complaints, except as documented Psychiatric: Psychiatric: Reports no additional psychiatric complaints Endocrine: Endocrine: Reports no additional endocrine complaints Hematologic/Lymphatic: Hematologic/Lymphatic: Reports no additional hematologic/lymphatic complaints Allergic/Immunologic: Allergic/Immunologic: Reports no additional allergic/immunologic complaints PMF Past Medical History Medical History Anxiety Hypertension Surgical History Surgical History History of hysterectomy Hx of cholecystectomy Previous back surgery Family History Family History Sibling Cerebrovascular accident Family history of diabetes mellitus in first degree relative Father Family history of congestive heart failure Other Family history of cardiovascular disease Social History Social History Smoking status: Current every day smoker Alcohol intake: never Substance use: never Gender identity (if verbalized by the patient): Female Exam Const: General: no acute distress and alert Orientation/consciousness: patient oriented x3 HENMT: Head: normal to inspection Face and sinus: no
--- NOTE | 2020-12-14 14:56 | ECG_ITS ---
Measurements Intervals [place] Rate: 76 P: 65 NV: 159 QRS: 50 QRSD: 92 T: 58 QT: 380 QTc: 429 Interpretive Statements SINUS RHYTHM LEFT ATRIAL ENLARGEMENT CANNOT RULE OUT SEPTAL INFARCT, AGE INDETERMINATE ST ELEVATION IN DIFFUSE LEADS- PROBABLY EARLY REPOLARIZATION ABNORMALITY ABNORMAL ECG Electronically Signed On 12-14-2020 15:23:12 LACQUER POLISHER by Dereck Brown D.O.
--- NOTE | 2020-12-14 15:01 | PC.NURSE ---
Cardiopulmonary called for EKG.
[2020-12-14 15:23] LABS: Basophils Absolute Auto 0.03 K/mm3 (0.00-0.10); Basophils Percent Auto 0.2 % (0.0-1.0); Hematocrit 32.4 % (35.0-42.0); Hemoglobin 10.6 g/dL (11.7-13.8); Immature Granulocyte Absolute 0.12 K/mm3 (0.00-0.00); Immature Granulocyte Percent A 0.6 % (0.0-0.0); Lymphocytes Absolute Auto 1.58 K/mm3 (1.10-4.50); Lymphocytes Percent Auto 8.3 % (18.0-42.0); Mean Corpuscular HGB Conc 32.7 g/dL (32.0-36.0); Mean Corpuscular Hemoglobin 31.4 pg (27.0-31.0); Mean Corpuscular Volume 95.9 fL (78.0-102.0); Monocytes Absolute Auto 2.19 K/mm3 (0.10-0.90); Monocytes Percent Auto 11.6 % (2.0-11.0); Neutrophils Percent Auto 79.3 % (50.0-70.0); Platelet Count Result 303 K/mm3 (150-420); Red Blood Count 3.38 M/mm3 (4.20-5.40); Red Cell Distribution Width 13.5 % (11.6-14.4)
--- NOTE | 2020-12-14 15:23 | PC.NURSE ---
Pt to radiology. Urine walked to lab.
[2020-12-14 15:29] LABS: Add Urine Microscopic? YES; Appearance Urine Clear (Clear); Bilirubin Urine Negative (Negative); Blood Urine 2+ (Negative); Color Urine Light Yellow (Yellow); Glucose Urine UA Negative (Negative); Ketones Urine Negative (Negative); Leukocyte Esterase Ur Negative LEU/UL (Negative); Nitrate Urine Negative (Negative); Protein Urine Trace (Negative); Specific Grav Ur 1.025 (1.010-1.020); Urobilinogen Urine 0.2 mg/dL (0.2-1.0); pH Urine 5.5 (5.0-8.0)
[2020-12-14 15:34] LABS: Squamous Epithelial Cell Urine Few /hpf (Few); WBC Urine None seen /hpf (0-3)
[2020-12-14 15:35] LABS: Bacteria Urine 1+ /hpf
[2020-12-14 15:41] LABS: Alanine Aminotransferase 33 U/L (14-59); Alkaline Phosphatase 114 U/L (46-116); Anion Gap 9 mmol/L (8-16); Aspartate Amino Transferase 34 U/L (15-37); Bilirubin,Total 0.5 mg/dL (0.00-1.00); Blood Urea Nitrogen 37 mg/dL (7-18); Calcium 9.4 mg/dL (8.5-10.1); Carbon Dioxide 26 mmol/L (21-32); Chloride 100 mmol/L (98-108); Estimated CRCL calculation 21 ml/min; Estimated Glomerular Filt Rate 36; Glucose 142 mg/dL (70-99); Osmolality Calculated 290 mOsm/kg (285-295); Potassium 4.3 mmol/L (3.5-5.1); Sodium 135 mmol/L (136-145); Total Protein 7.6 g/dL (6.4-8.2)
[2020-12-14 15:47] LABS: NT Pro B Type Natriuretic Pept 4990 pg/mL (0-125)
[2020-12-14 15:54] LABS: Troponin I 49.4 ng/L (0.00-60.4)
[2020-12-14] MEDS: AZITHROMYCIN 250 MG TABLET 500 MG PO (16:46)
== END 2020-12-14 15:38 | disposition home or self-care (01) ==
PROVIDERS: Emergency Provider Internal Medicine Critical Care Medicine; PCP Family Medicine
DX: N18.32 Chronic kidney disease, stage 3b (principal); R41.82 Altered mental status, unspecified; J44.9 Chronic obstructive pulmonary disease, unspecified; R06.9 Unspecified abnormalities of breathing; I12.9 Hypertensive chronic kidney disease with stage 1 through stage 4 chronic kidney disease, or unspecified chronic kidney disease; F17.200 Nicotine dependence, unspecified, uncomplicated
CPT/HCPCS: 36415; 70450; 71045; 73562; 80053; 81001; 83880; 84484; 85025; 93005; 99283; 99284; A9270

== ENCOUNTER 2020-12-17 17:24 | Observation (INO) | payer MEDICARE, SELFPAY ==
--- NOTE | ~2020-12-17 | XR_ITS ---
EXAMINATION: XR chest 2V EXAM DATE: 12/17/2020 19:54 INDICATION: Hypoxia, weakness, AMS, cough, COVID neg. TECHNIQUE: Frontal and lateral projections of the chest obtained and reviewed. Comparison is made to prior examination from 12/14/2020. FINDINGS: The lungs are hyperinflated which can be seen with chronic obstructive pulmonary disease ( a clinical diagnosis of functional impairment), but is not diagnostic of it. The cardiomediastinal si lhouette is prominent but magnified on this AP technique. No confluent consolidation, pneumothorax or pleural effusion suspected. The bones are osteopenic. There are bony degenerative changes. IMPRESSION: Hyperinflation. No acute cardiopulmonary findings. Reviewed, dictated and finalized at location A. JAVA DEVELOPER
[2020-12-17 17:30] VITALS: BP 121/66; PULSE 101; RESP 20; TEMP 37.3; O2SAT 94
--- NOTE | 2020-12-17 17:43 | ED.WEAKNESS ---
HPI - Weakness General Chief complaint: Weakness Stated complaint: NOT DRINKING FLUIDS, WEAKNESS Time Seen by Provider: 12/17/20 17:43 Source: patient and family Mode of arrival: wheelchair Limitations: altered mental status History of Present Illness HPI Narrative: 75-year-old woman with a history of hypertension, COPD, type 2 diabetes, and GERD brought in by her family for decreased activity, weakness and poor intake for the last 24-48 hours. The states that she is not herself. Patient states that she is fine and has had no falls, chest pain, headache, vomiting, fever or abdominal pain. Family states that she had vomiting yesterday x1, has been tremulous, was incontinent of urine and has not been out of bed in the last 24 hours which is very unusual for her. Patient vehemently denies that she has been having any chest pain. MD Complaint: generalized weakness Onset (ago): day(s) (1) Duration: constant and progressively worsening Location: generalized Migration: none Severity: severe Relieving factors: none Exacerbating factors: none Context: other ( COVID immunization 12/10/20.) Associated symptoms: confusion, loss of appetite and nausea/vomiting Related Data Home Medications Medication Instructions Recorded Confirmed alprazolam 0.5 mg PO BID 01/28/20 12/17/20 amlodipine 10 mg PO DAILY 01/28/20 12/17/20 metformin 500 mg PO BID 01/28/20 12/17/20 mirtazapine 15 mg PO HS 01/28/20 12/17/20 omeprazole 40 mg PO DAILY 01/28/20 12/17/20 irbesartan 300 mg PO DAILY 09/24/20 12/17/20 propranolol 20 mg PO BID 09/24/20 12/17/20 Allergies Allergy/AdvReac Type Severity Reaction Status Date / Time albuterol Allergy Unknown Unknown Verified 12/17/20 17:44 Antihistamines - Alkylamine Allergy Unknown Unknown Verified 12/17/20 17:44 atorvastatin Allergy Unknown Unknown Verified 12/17/20 17:44 ciprofloxacin Allergy Unknown Unknown Verified 12/17/20 17:44 sulfanilamide Allergy Unknown Unknown Verified 12/17/20 17:44 Review of Systems Review of Systems: All systems reviewed & are unremarkable except as noted in HPI and below Constitutional: Constitutional: Denies chills, Denies fever(s) and Reports weakness Eyes: Eyes: Denies change in vision and Denies photophobia ENT: Denies nasal congestion and Denies sore throat Cardiovascular: Cardiovascular: Denies chest pain and Denies radiating jaw, neck or arm pain Respiratory: Respiratory: Reports chest congestion, Reports cough, Denies dyspnea and Reports wheezing Gastrointestinal: Gastrointestinal: Denies abdominal pain, Denies diarrhea, Denies nausea and Reports vomiting Genitourinary: Genitourinary: Denies hematuria, Denies nocturia, Denies dysuria and Reports urinary incontinence Musculoskeletal: Musculoskeletal: Denies back pain, Denies arthralgias and Denies joint swelling Integumentary/Breasts: Skin/Breast: Denies pruritus, Denies erythema and Denies rash Neurologic: Denies vertigo, Denies dizziness, Denies syncope, Denies headache(s), Denies focal weakness and Denies numbness Endocrine: Endocrine: Denies polydipsia and Denies polyuria Hematologic/Lymphatic: Hematologic/Lymphatic: Denies easy bleeding and Denies easy bruising Allergic/Immunologic: Allergic/Immunologic: Denies lip swelling and Denies throat swelling PMFSH Past Medical History Medical History Anxiety GERD (gastroesophageal reflux disease) Hypertension Surgical History Surgical History History of hysterectomy Hx of cholecystectomy Previous back surgery Family History Family History Sibling Cerebrovascular accident Family history of diabetes mellitus in first degree relative Father Family history of congestive heart failure Other Family history of cardiovascular disease Social History Social History (Reviewed 12/17/20 @ 18:41
--- NOTE | 2020-12-17 17:44 | ECG_ITS ---
Measurements Intervals [place] Rate: 98 P: 58 MT: 155 QRS: 42 QRSD: 106 T: 49 QT: 324 QTc: 415 Interpretive Statements SINUS RHYTHM LEFT ATRIAL ENLARGEMENT INTRAVENTRICULAR CONDUCTION DELAY BORDERLINE R WAVE PROGRESSION, ANTERIOR LEADS BASELINE ARTIFACT- II, III, AVF, V1-V4 BORDERLINE ECG Electronically Signed On 12-19-2020 7:18:48 NIB ADJUSTER by Dereck Brown D.O.
[2020-12-17 17:50] VITALS: PULSE 99; RESP 20; O2SAT 90
[2020-12-17 17:55] VITALS: PULSE 90; RESP 22; O2SAT 97
[2020-12-17] MEDS: SODIUM CHLORIDE 0.9% IV 500 ML 999 ML IV CONT (18:28)
[2020-12-17 18:34] LABS: Basophils Absolute Auto 0.01 K/mm3 (0.00-0.10); Basophils Percent Auto 0.1 % (0.0-1.0); Hematocrit 36.5 % (35.0-42.0); Hemoglobin 11.4 g/dL (11.7-13.8); Immature Granulocyte Absolute 0.06 K/mm3 (0.00-0.00); Immature Granulocyte Percent A 0.5 % (0.0-0.0); Lymphocytes Absolute Auto 0.84 K/mm3 (1.10-4.50); Lymphocytes Percent Auto 7.2 % (18.0-42.0); Mean Corpuscular HGB Conc 31.2 g/dL (32.0-36.0); Mean Corpuscular Hemoglobin 30.9 pg (27.0-31.0); Mean Corpuscular Volume 98.9 fL (78.0-102.0); Mean Platelet Volume 10.5 fl (9.2-11.8); Monocytes Absolute Auto 0.47 K/mm3 (0.10-0.90); Monocytes Percent Auto 4.1 % (2.0-11.0); Neutrophils Absolute Auto 10.2 K/mm3 (1.7-7.2); Neutrophils Percent Auto 88.1 % (50.0-70.0); Platelet Count Result 407 K/mm3 (150-420); Red Blood Count 3.69 M/mm3 (4.20-5.40); Red Cell Distribution Width 14.1 % (11.6-14.4); White Blood Count 11.6 K/mm3 (4.8-10.8)
[2020-12-17 18:49] LABS: Partial Thromboplastin Time 25.9 SEC (23.90-30.70); Prothrombin Time 10.9 Seconds (9.50-12.10)
--- NOTE | 2020-12-17 18:49 | PC.NURSE ---
pt speaking to spouse, asking to go home, asking to go out to smoke, states she does not want to stay any longer. denies pain.
[2020-12-17 18:54] LABS: Lactic Acid Reflex 1.2 mmol/L (0.4-2.0)
[2020-12-17 19:00] VITALS: PULSE 90
[2020-12-17 19:01] LABS: Influenza Control Valid (Valid)
[2020-12-17 19:02] LABS: Alanine Aminotransferase 44 U/L (14-59); Albumin Level 2.9 g/dL (3.4-5.0); Alkaline Phosphatase 107 U/L (46-116); Anion Gap 13 mmol/L (8-16); Aspartate Amino Transferase 44 U/L (15-37); Bilirubin,Total 0.3 mg/dL (0.00-1.00); Blood Urea Nitrogen 34 mg/dL (7-18); Calcium 9.3 mg/dL (8.5-10.1); Carbon Dioxide 23 mmol/L (21-32); Chloride 101 mmol/L (98-108); Estimated CRCL calculation 22 ml/min; Estimated Glomerular Filt Rate 35; Glucose 141 mg/dL (70-99); Osmolality Calculated 293 mOsm/kg (285-295); Sodium 137 mmol/L (136-145); Total Protein 7.9 g/dL (6.4-8.2)
[2020-12-17 19:03] LABS: CRP 13.8 mg/dL (0.0-0.9)
[2020-12-17 19:04] LABS: Potassium 6.5 mmol/L (3.5-5.1)
[2020-12-17 19:05] LABS: NT Pro B Type Natriuretic Pept 4603 pg/mL (0-125)
[2020-12-17 19:05] LABS: Lipase 102 U/L (73-393); Troponin I 60.8 ng/L (0.00-60.4)
[2020-12-17 19:06] LABS: SARS-CoV-2 Ag Negative (Negative)
[2020-12-17] MEDS: ASPIRIN 81 MG CHEWABLE TABLET 324 MG PO (19:20)
[2020-12-17] MEDS: NICOTINE (*PBKC) 14 MG PATCH 1 PATCH TRANSDERM (20:04)
[2020-12-17 20:29] LABS: Appearance Urine Clear (Clear); Bilirubin Urine Negative (Negative); Color Urine Light Yellow (Yellow); Glucose Urine UA Negative (Negative); Ketones Urine 1+ (Negative); Leukocyte Esterase Ur Negative LEU/UL (Negative); Nitrate Urine Negative (Negative); Protein Urine Trace (Negative); Specific Grav Ur 1.025 (1.010-1.020); Urobilinogen Urine 0.2 mg/dL (0.2-1.0)
[2020-12-17 20:35] LABS: Add Urine Microscopic? YES; Blood Urine Trace-Intact (Negative)
[2020-12-17 20:36] LABS: Amorphous Sediment Urine Moderate; Bacteria Urine 3+ /hpf; Mucus Urine Moderate /lpf; Squamous Epithelial Cell Urine Moderate /hpf (Few); WBC Urine 0-3 /hpf (0-3)
[2020-12-17 22:10] LABS: Troponin I 57.4 ng/L (0.00-60.4)
[2020-12-17 22:11] LABS: Glucose Point of Care 112 mg/dl (65-105)
--- NOTE | 2020-12-17 22:19 | PC.NURSE ---
ERp spoke to pt and spouse, pt agreeable to staying tonight, orders received.
[2020-12-17] MEDS: CALCIUM CHLORIDE 1,000 MG/10 ML SYRINGE 50 MG IV PUSH (23:00)
[2020-12-17] MEDS: DEXTROSE 50% 25 GM/50 ML SYRINGE IV PUSH (23:00)
[2020-12-17 23:15] VITALS: PULSE 89; O2SAT 93
[2020-12-17] MEDS: ALPRAZolam (*CRX) 0.5 MG TABLET PO (23:26)
[2020-12-17 23:40] VITALS: BP 132/58; PULSE 89; RESP 20; TEMP 36.6; O2SAT 98
[2020-12-18] VITALS (9 sets, daily range): BP systolic 112–167; BP diastolic 51–72; PULSE 76–96; RESP 16–20; TEMP 36.1–36.8; O2SAT 92–98
[2020-12-18 00:47] LABS: Anion Gap 8 mmol/L (8-16); Blood Urea Nitrogen 35 mg/dL (7-18); Calcium 9.6 mg/dL (8.5-10.1); Carbon Dioxide 26 mmol/L (21-32); Chloride 102 mmol/L (98-108); Estimated CRCL calculation 22 ml/min; Estimated Glomerular Filt Rate 37; Glucose 95 mg/dL (70-99); Osmolality Calculated 290 mOsm/kg (285-295); Potassium 4.6 mmol/L (3.5-5.1); Sodium 136 mmol/L (136-145)
[2020-12-18 00:49] LABS: Creatine Kinase 1499 U/L (26-192); Troponin I 46.6 ng/L (0.00-60.4)
[2020-12-18] MEDS: ONDANSETRON HCL ODT 4 MG TABLET PO ×3 (01:37→16:51)
[2020-12-18 01:49] LABS: Glucose Point of Care 36 mg/dl (65-105)
[2020-12-18 01:49] LABS: Glucose Point of Care 34 mg/dl (65-105)
--- NOTE | 2020-12-18 01:50 | PC.NURSE ---
Dr Lizama notified of patient's blood glucose being 34 with recheck being 36 with patient eating snacks @ this time. New orders received. Also notified Dr Lizama of patient's lab results being back.
[2020-12-18] MEDS: MIRTAZAPINE 15 MG TABLET PO ×2 (01:59→21:11)
[2020-12-18] MEDS: MELATONIN 5 MG TABLET PO ×2 (01:59→21:11)
[2020-12-18] MEDS: DEXTROSE 10% 250 ML 100 ML IV CONT (02:01)
--- NOTE | 2020-12-18 02:34 | PC.NURSE ---
Pt's blood glucose was checked twice and was 34 and 36. Charge nurse notified who contacted the DrGregg. D10 hung per 's order and pt was brought 2 ice cream cups, and 4 isabel crackers to help raise bg level. Blood recheck will be performed in one hour to see if there is improvement. Pt was diaphoretic, but showed no other symptoms. is currently in room and pt is trying to sleep at this time.
[2020-12-18 03:07] LABS: Glucose Point of Care 161 mg/dl (65-105)
--- NOTE | 2020-12-18 03:07 | PC.NURSE ---
Attempted to notify Dr Lizama of patient's blood glucose of 161. in room with ED patient and ED nurse will have Dr return call.
--- NOTE | 2020-12-18 03:21 | PC.NURSE ---
Called Dr Lizama and reported blood glucose level of 161. No new orders received.
[2020-12-18 04:15] LABS: Glucose Point of Care 267 mg/dl (65-105)
--- NOTE | 2020-12-18 04:15 | PC.NURSE ---
Dr Lizama notified of patient's blood glucose level of 267 with new orders received.
[2020-12-18 05:06] LABS: Glucose Point of Care 346 mg/dl (65-105)
--- NOTE | 2020-12-18 05:12 | PC.NURSE ---
Doctor notified of blood glucose results and no orders changed. IV site in 18 g in left forearm infiltrated and discontinued. This senior grant writer tried several times to initiate an IV and the veins blew, so bolus that is ordered cannot be done at this time. notified of this finding as well, and stated Okay that is fine. Bed left in lowest position and lights turned off. Call light and fresh water within reach. is sleeping in chair and was educated on mask protocol for leaving his 's room.
[2020-12-18 05:23] LABS: Basophils Absolute Auto 0.03 K/mm3 (0.00-0.10); Basophils Percent Auto 0.3 % (0.0-1.0); Eosinophils Absolute Auto 0.03 K/mm3 (0.02-0.50); Eosinophils Percent Auto 0.3 % (1.0-6.0); Hematocrit 34.8 % (35.0-42.0); Hemoglobin 10.7 g/dL (11.7-13.8); Immature Granulocyte Absolute 0.05 K/mm3 (0.00-0.00); Immature Granulocyte Percent A 0.5 % (0.0-0.0); Lymphocytes Percent Auto 18.4 % (18.0-42.0); Mean Corpuscular HGB Conc 30.7 g/dL (32.0-36.0); Mean Corpuscular Hemoglobin 30.2 pg (27.0-31.0); Mean Corpuscular Volume 98.3 fL (78.0-102.0); Mean Platelet Volume 10.8 fl (9.2-11.8); Monocytes Absolute Auto 1.11 K/mm3 (0.10-0.90); Monocytes Percent Auto 11.3 % (2.0-11.0); Neutrophils Absolute Auto 6.8 K/mm3 (1.7-7.2); Neutrophils Percent Auto 69.2 % (50.0-70.0); Platelet Count Result 359 K/mm3 (150-420); Red Blood Count 3.54 M/mm3 (4.20-5.40); Red Cell Distribution Width 13.7 % (11.6-14.4); White Blood Count 9.8 K/mm3 (4.8-10.8)
[2020-12-18] MEDS: SODIUM CHLORIDE 0.9% IV 500 ML 999 ML IV CONT (05:43)
[2020-12-18 05:48] LABS: Alanine Aminotransferase 43 U/L (14-59); Albumin Level 2.6 g/dL (3.4-5.0); Alkaline Phosphatase 96 U/L (46-116); Anion Gap 9 mmol/L (8-16); Aspartate Amino Transferase 56 U/L (15-37); Bilirubin,Total 0.3 mg/dL (0.00-1.00); Blood Urea Nitrogen 35 mg/dL (7-18); Carbon Dioxide 26 mmol/L (21-32); Chloride 97 mmol/L (98-108); Creatine Kinase 1572 U/L (26-192); Estimated CRCL calculation 25 ml/min; Estimated Glomerular Filt Rate 42; Glucose 283 mg/dL (70-99); Osmolality Calculated 292 mOsm/kg (285-295); Potassium 4.6 mmol/L (3.5-5.1); Sodium 132 mmol/L (136-145); Total Protein 7.2 g/dL (6.4-8.2)
[2020-12-18 05:49] LABS: NT Pro B Type Natriuretic Pept 5849 pg/mL (0-125)
--- NOTE | 2020-12-18 05:53 | PC.NURSE ---
Dr Lizama notified of blood glucose level with no new orders received.
[2020-12-18 05:54] LABS: Glucose Point of Care 324 mg/dl (65-105)
[2020-12-18] MEDS: SODIUM CHLORIDE 0.9% IV 1,000 ML 100 ML IV CONT ×2 (06:30→16:52)
[2020-12-18 07:51] LABS: Glucose Point of Care 258 mg/dl (65-105)
[2020-12-18] MEDS: PANTOPRAZOLE 40 MG TABLET PO (08:16)
[2020-12-18] MEDS: IRBESARTAN 150 MG TABLET 300 MG PO (08:16)
[2020-12-18] MEDS: NICOTINE (*PBKC) 14 MG PATCH 1 PATCH TRANSDERM (08:16)
[2020-12-18] MEDS: AZITHROMYCIN 250 MG TABLET PO (08:16)
[2020-12-18] MEDS: ALPRAZolam (*CRX) 0.5 MG TABLET PO ×2 (08:16→16:51)
--- NOTE | 2020-12-18 09:38 | PM.IMHP ---
H&P: HPI History of Present Illness Date/Time: 12/18/20 09:38 Leah Molina is a 75 year old female who is admitted under Observation for Rhabdomyolysis, Hyperkalemia, Acute on Chronic Renal Failure, Weakness. Pt states over and over that she wants to go home. is the historian and believes she needs to stay in the hospital. Pt was being treated for a UTI with Azithromycin starting a couple days ago. states that he noticed his being less and less active over the last 24 hours or so. He is a garbage truck dispatcher and keeps an eye on his via a [employer] type device that allows audio and video. He states that usually Leah will wake up around 0500 hours then start her morning by checking her blood pressure, taking her diabetic and other medications. However, he noticed her just laying in bed. She was found to be incontinent of urine. Pt denies any issues and has no complaints and states over and over she wants to go home while the shakes his head no and states she is stubborn. Chief Complaint: UTI, weakness, Hyperkalemia, Acute on Chronic Renal Failure, Elevated BNP Review of Systems Review of Systems: provides the history as the Pt does not recall what transpired prior to her arrival at the hospital [facility] Past Medical History Medical History Anxiety GERD (gastroesophageal reflux disease) Hypertension Surgical History Surgical History History of hysterectomy Hx of cholecystectomy Previous back surgery Family History Family History Sibling Cerebrovascular accident Family history of diabetes mellitus in first degree relative Father Family history of congestive heart failure Other Family history of cardiovascular disease Social History Social History Smoking status: Current every day smoker Alcohol intake: never Substance use: never Substance use type: marijuana Last use: 12/11/2020 Gender identity (if verbalized by the patient): Female Spiritual care concerns: No Meds Home Medications and Allergies Home Medications Medication Instructions Recorded Confirmed Type alprazolam 0.5 mg PO BID 01/28/20 12/17/20 History amlodipine 10 mg PO DAILY 01/28/20 12/17/20 History metformin 500 mg PO BID 01/28/20 12/17/20 History mirtazapine 15 mg PO HS 01/28/20 12/17/20 History omeprazole 40 mg PO DAILY 01/28/20 12/17/20 History irbesartan 300 mg PO DAILY 09/24/20 12/17/20 History ondansetron 4 mg PO Q6H PRN #10 tablet 09/24/20 12/17/20 Rx propranolol 20 mg PO BID 09/24/20 12/17/20 History azithromycin [Zithromax] 250 mg PO DAILY 4 Days #4 tablet 12/14/20 12/17/20 Rx MDD 500mg Allergies Allergy/AdvReac Type Severity Reaction Status Date / Time albuterol Allergy Unknown Unknown Verified 12/17/20 17:44 Antihistamines - Alkylamine Allergy Unknown Unknown Verified 12/17/20 17:44 atorvastatin Allergy Unknown Unknown Verified 12/17/20 17:44 ciprofloxacin Allergy Unknown Unknown Verified 12/17/20 17:44 sulfanilamide Allergy Unknown Unknown Verified 12/17/20 17:44 Vital Signs Vital Signs - 24 hr 12/17/20 17:30 12/17/20 17:50 12/17/20 17:55 Temperature 99.2 F Pulse Rate 101 H 99 90 Respiratory Rate 20 20 22 H Blood Pressure 121/66 Pulse Oximetry 94 90 97 12/17/20 19:00 12/17/20 23:15 12/17/20 23:40 Temperature 97.8 F Pulse Rate 90 89 89 Respiratory Rate 20 Blood Pressure 132/58 L Pulse Oximetry 93 98 12/18/20 00:00 12/18/20 00:16 12/18/20 04:00 Temperature 98 F 97 F L Pulse Rate 77 79 78 Respiratory Rate 17 17 Blood Pressure 112/51 L 131/52 L Pulse Oximetry 98 96 12/18/20 05:57 12/18/20 08:00 Temperature 97.3 F L Pulse Rate 76 81 Respiratory Rate 20 Blood Pressure 167/72 H Pulse Oximetry 97 Exam Const: Ge
[2020-12-18] MEDS: ENOXAPARIN 30 MG/0.3 ML SYRINGE SUB-Q (11:05)
[2020-12-18 12:01] LABS: Glucose Point of Care 208 mg/dl (65-105)
[2020-12-18] MEDS: FUROSEMIDE 20 MG TABLET PO (12:17)
[2020-12-18] MEDS: ACETAMINOPHEN 325 MG TABLET 650 MG PO ×2 (12:31→19:08)
--- NOTE | 2020-12-18 19:00 | PC.NURSE ---
Completed bedside change of shift report. Patient was anxious about getting her night time medication. was getting ready to leave, and patient did not want him to. stated that he would return in the morning. Patient wanted tylenol for mild pain. Shortly after, patient's left. Patient stated that she did not need anything else at that time.
[2020-12-18 20:13] LABS: Glucose Point of Care 242 mg/dl (65-105)
[2020-12-18 21:59] LABS: Glucose Point of Care 185 mg/dl (65-105)
--- NOTE | 2020-12-18 23:00 | PC.NURSE ---
Completed patient rounding. Patient is sleeping comfortably in bed, with no signs of pain or discomfort.
[2020-12-19] VITALS: BP 111/59; PULSE 82; PULSE 85; RESP 18; TEMP 36.9; O2SAT 93
[2020-12-19] MEDS: ACETAMINOPHEN 325 MG TABLET 650 MG PO (01:16)
[2020-12-19] MEDS: SODIUM CHLORIDE 0.9% IV 1,000 ML 100 ML IV CONT (03:12)
[2020-12-19 04:00] VITALS: BP 150/71; PULSE 80; PULSE 93; RESP 16; TEMP 36.6; O2SAT 92
[2020-12-19 05:46] LABS: Hematocrit 32.1 % (35.0-42.0); Mean Corpuscular HGB Conc 31.2 g/dL (32.0-36.0); Mean Corpuscular Hemoglobin 30.5 pg (27.0-31.0); Mean Corpuscular Volume 97.9 fL (78.0-102.0); Mean Platelet Volume 10.5 fl (9.2-11.8); Platelet Count Result 366 K/mm3 (150-420); Red Blood Count 3.28 M/mm3 (4.20-5.40); Red Cell Distribution Width 14.2 % (11.6-14.4); White Blood Count 8.1 K/mm3 (4.8-10.8)
[2020-12-19 06:04] LABS: Anion Gap 6 mmol/L (8-16); Blood Urea Nitrogen 22 mg/dL (7-18); Calcium 8.2 mg/dL (8.5-10.1); Carbon Dioxide 25 mmol/L (21-32); Chloride 108 mmol/L (98-108); Estimated CRCL calculation 31 ml/min; Estimated Glomerular Filt Rate 56; Glucose 105 mg/dL (70-99); Magnesium 1.6 mg/dL (1.8-2.4); Osmolality Calculated 291 mOsm/kg (285-295); Sodium 139 mmol/L (136-145)
[2020-12-19 06:21] LABS: Creatine Kinase 715 U/L (26-192)
[2020-12-19 07:32] LABS: Glucose Point of Care 123 mg/dl (65-105)
[2020-12-19 07:48] VITALS: BP 149/66; PULSE 86; PULSE 93; RESP 20; TEMP 36.8; O2SAT 93
[2020-12-19] MEDS: ONDANSETRON HCL ODT 4 MG TABLET PO (08:25)
[2020-12-19] MEDS: MAGNESIUM SULF 2 GM/WATER 50ML 2 GM/50 ML BAG IVPB (08:26)
[2020-12-19] MEDS: ENOXAPARIN 30 MG/0.3 ML SYRINGE SUB-Q (08:29)
[2020-12-19] MEDS: ALPRAZolam (*CRX) 0.5 MG TABLET PO (08:30)
[2020-12-19] MEDS: PANTOPRAZOLE 40 MG TABLET PO (08:30)
[2020-12-19] MEDS: AZITHROMYCIN 250 MG TABLET PO (08:30)
[2020-12-19] MEDS: FUROSEMIDE 20 MG TABLET PO (08:30)
[2020-12-19] MEDS: IRBESARTAN 150 MG TABLET 300 MG PO (08:31)
[2020-12-19] MEDS: NICOTINE (*PBKC) 14 MG PATCH 1 PATCH TRANSDERM (08:31)
--- NOTE | 2020-12-19 08:45 | PM.DS ---
DS: Admitting Diagnosis Discharge Date 12/19/2020 Admitting Diagnosis Acute Hyperkalemia, Acute on Chronic Renal Failure, Anxiety, Elevated BNP, Rhabdomyolysis DS: Discharge Diagnosis Discharge Diagnosis (1) Rhabdomyolysis: Qualifiers: Rhabdomyolysis type: non-traumatic Qualified Code(s): M62.82 - Rhabdomyolysis Code(s): M62.82 - Rhabdomyolysis Status: Acute Assessment and Plan: Total Creatine Kinase initially was 1499 now 1572, 2L bolus in ER now NS @ 100ml/h, will monitor CK 12/19/2020 CK decreased this AM to 715, Pt not complaining of any pain other than her left arm pit she says came from when her children dragged her out of the house. (2) Elevated brain natriuretic peptide (BNP) level: Code(s): R79.89 - Other specified abnormal findings of blood chemistry Status: Acute Assessment and Plan: Initially 4603 now 5849, will monitor likely d/t Renal failure combined with Rhabdomyolisis, Troponin initially 60.8 but has trended down to 57.4 and then 46.6 12/19/2020 (3) Acute on chronic kidney failure: Qualifiers: Acute renal failure type: unspecified Chronic kidney disease stage: stage 3 (moderate) Chronic kidney disease stage 3 subtype: stage 3b (GFR 30-44) Qualified Code(s): N17.9 - Acute kidney failure, unspecified; N18.32 - Chronic kidney disease, stage 3b Code(s): N17.9 - Acute kidney failure, unspecified; N18.9 - Chronic kidney disease, unspecified Status: Acute Assessment and Plan: BUN 35, Cr 1.26, eCrCl 25, eGFR 42, IVF NS 100/h, Creatinine appears to be at baseline 12/19/2020 BUN 22, Cr 0.98, eCrCl 31, eGFR 56 (4) Acute hyperkalemia: Code(s): E87.5 - Hyperkalemia Status: Acute Assessment and Plan: Pt was given IV Dextrose with Insulin, current potassium is 4.6, Pt denies chest pain and musculoskeletal issues, will monitor 12/19/2020 Potassium 5 this AM. Magnesium 1.6 and supplemented with 2 gm (5) UTI (urinary tract infection): Qualifiers: Hematuria presence: without hematuria Urinary tract infection type: acute cystitis Qualified Code(s): N30.00 - Acute cystitis without hematuria Code(s): N39.0 - Urinary tract infection, site not specified Status: Acute Assessment and Plan: Pt was being treated for this prior to arrival at this hospital, will continue Azithromycin 12/19/2020 Pt has had 4 days of Azithromycin (6) Hypertension: Code(s): I10 - Essential (primary) hypertension Status: Acute Assessment and Plan: BP 120-130/50-60s with a 1 time 167/72 this AM, HR 70s-80s, no changes to medications at this time, continue with Irbesartan and monitor VS 12/19/2020 VVS, no changes to medications is needed at this time. (7) Anxiety: Code(s): F41.9 - Anxiety disorder, unspecified Status: Acute Assessment and Plan: Pt has Alprazolam as a home medication and will add to her MAR if/when needed. 12/19/2020 Pt has not requested anxiety medications (8) GERD (gastroesophageal reflux disease): Code(s): K21.9 - Gastro-esophageal reflux disease without esophagitis Status: Acute Assessment and Plan: Continue with Protonix (9) Weakness: Code(s): R53.1 - Weakness Status: Acute Assessment and Plan: Request a PT DC evaluation. 12/19/2020 PT was not available yesterday for Evaluation as this was a Sunday. DS: Summary Hospital Course Hospital Course: Potassium issue resolved, Pt able to walk about her room without difficulty, renal issues resolved, Rhabdomyolysis resolved. Time Spent with Patient Time attestation: Total time spent providing and/or coordinating discharge services: < 30 Minutes Exam Const: General: cooperative, comfortable, no acute distress, well developed, alert and awake Nutritional Appearance: underweight Resp: Effort & Inspection: normal respiratory effort and no cough Auscultation: clear to auscul
[2020-12-19 09:14] LABS: NT Pro B Type Natriuretic Pept 1927 pg/mL (0-125)
--- NOTE | 2020-12-19 10:35 | PC.NURSE ---
Patient discharged home w/spouse and transported via personal vehicle. All personal belongings packed up and take with spouse to vehicle. Patient and spouse both received discharge instructions and acknowledged understanding of instructions given. IV site and telemetry both discontinued and removed prior to discharge. Staff transported patient to main entrance via and assisted into personal vehicle for transport home by spouse.
--- NOTE | 2020-12-20 10:02 | PCPTNOTE ---
12/19/20 - No Care Plan initiated due to patient being discharged today.
--- NOTE | 2020-12-20 15:11 | PC.NURSE ---
Pt states she received and understood her discharge instructions. Pt has no other comments.
== END 2020-12-19 10:35 | disposition home or self-care (01) ==
LOC: CHSED 23:34 → CHS2ND 12-19 09:00
PROVIDERS: Nurse Practitioner Family; Admitting Provider Emergency Medicine; Emergency Provider Emergency Medicine; PCP Family Medicine; Visit Provider Emergency Medicine
DX: M62.82 Rhabdomyolysis (principal); N17.9 Acute kidney failure, unspecified; N39.0 Urinary tract infection, site not specified; E87.5 Hyperkalemia; I12.9 Hypertensive chronic kidney disease with stage 1 through stage 4 chronic kidney disease, or unspecified chronic kidney disease; N18.30 Chronic kidney disease, stage 3 unspecified; J44.9 Chronic obstructive pulmonary disease, unspecified; E11.9 Type 2 diabetes mellitus without complications; K21.9 Gastro-esophageal reflux disease without esophagitis; R06.2 Wheezing; R79.89 Other specified abnormal findings of blood chemistry; F41.9 Anxiety disorder, unspecified; F17.200 Nicotine dependence, unspecified, uncomplicated; Z20.822 Contact with and (suspected) exposure to COVID-19; Z90.49 Acquired absence of other specified parts of digestive tract; Z90.710 Acquired absence of both cervix and uterus
CPT/HCPCS: 36415; 71046; 80048; 80053; 81001; 82550; 82948; 83605; 83690; 83735; 83880; 84484; 85025; 85027; 85610; 85730; 86140; 87040; 87426; 87804; 93005; 96360; 96361; 96372; 96374; 96375; 97161; 99285; A9270; C9803; G0378; J1650; J1815; J3475; J7030; J7040

== ENCOUNTER 2020-12-24 10:12 | Outpatient (CLI) | payer MEDICARE, SELFPAY ==
[2020-12-24 10:27] LABS: Basophils Absolute Auto 0.03 K/mm3 (0.00-0.10); Basophils Percent Auto 0.3 % (0.0-1.0); Eosinophils Absolute Auto 0.17 K/mm3 (0.02-0.50); Eosinophils Percent Auto 1.4 % (1.0-6.0); Hematocrit 37.5 % (35.0-42.0); Hemoglobin 11.9 g/dL (11.7-13.8); Immature Granulocyte Absolute 0.07 K/mm3 (0.00-0.00); Immature Granulocyte Percent A 0.6 % (0.0-0.0); Immature Platelet Fraction Pct 1.9 % (1.0-7.0); Lymphocytes Absolute Auto 2.53 K/mm3 (1.10-4.50); Lymphocytes Percent Auto 21.5 % (18.0-42.0); Mean Corpuscular HGB Conc 31.7 g/dL (32.0-36.0); Mean Corpuscular Hemoglobin 31.5 pg (27.0-31.0); Mean Corpuscular Volume 99.2 fL (78.0-102.0); Mean Platelet Volume 9.7 fl (9.2-11.8); Neutrophils Absolute Auto 8.3 K/mm3 (1.7-7.2); Neutrophils Percent Auto 70.2 % (50.0-70.0); Platelet Count Result 558 K/mm3 (150-420); Red Blood Count 3.78 M/mm3 (4.20-5.40); Red Cell Distribution Width 14.9 % (11.6-14.4); White Blood Count 11.8 K/mm3 (4.8-10.8)
[2020-12-24 10:31] LABS: Add Urine Microscopic? NO; Appearance Urine Clear (Clear); Bilirubin Urine Negative (Negative); Blood Urine Negative (Negative); Color Urine Light Yellow (Yellow); Glucose Urine UA Negative (Negative); Ketones Urine Negative (Negative); Leukocyte Esterase Ur Negative (Negative); Nitrate Urine Negative (Negative); Protein Urine Negative (Negative); Specific Grav Ur >= 1.030 (1.010-1.020); Urobilinogen Urine 0.2 mg/dL (0.2-1.0)
[2020-12-24 11:19] LABS: Alanine Aminotransferase 43 U/L (14-59); Albumin Level 3.1 g/dL (3.4-5.0); Alkaline Phosphatase 118 U/L (46-116); Anion Gap 8 mmol/L (8-16); Aspartate Amino Transferase 21 U/L (15-37); Bilirubin,Total 0.3 mg/dL (0.00-1.00); Blood Urea Nitrogen 20 mg/dL (7-18); Calcium 9.1 mg/dL (8.5-10.1); Carbon Dioxide 30 mmol/L (21-32); Chloride 100 mmol/L (98-108); Creatine Kinase 139 U/L (26-192); Estimated Glomerular Filt Rate > 60; Glucose 218 mg/dL (70-99); Magnesium 1.9 mg/dL (1.8-2.4); Osmolality Calculated 295 mOsm/kg (285-295); Potassium 4.8 mmol/L (3.5-5.1); Sodium 138 mmol/L (136-145); Total Protein 7.6 g/dL (6.4-8.2)
== END 2020-12-24 10:13 | disposition home or self-care (01) ==
LOC: CHSLAB 10:14
PROVIDERS: PCP Family Medicine; Visit Provider Family Medicine
DX: N17.9 Acute kidney failure, unspecified (principal); E11.40 Type 2 diabetes mellitus with diabetic neuropathy, unspecified; E83.42 Hypomagnesemia; M62.82 Rhabdomyolysis; N39.0 Urinary tract infection, site not specified
CPT/HCPCS: 36415; 80053; 81003; 82550; 83036; 83735; 85025; 85055; 87086

== ENCOUNTER 2020-12-28 12:24 | Outpatient (CLI) | payer MEDICARE, SELFPAY ==
--- NOTE | 2020-12-28 12:30 | ECHO_ITS ---
Patient Info Name: Leah Molina Age: 75 years : 1945 Gender: Female Ht: 62 in Wt: 100 lbs BSA: 1.40 m2 HR: 72 bpm BP: 159 / 50 mmHg Exam Date: 12/28/2020 1:20 PM Exam Location: [facility], [place] Patient Status: Outpatient Admit Date: 12/28/2020 Staff Ordering Physician: Noble Mathur MD Bus Mechanic: Kamala Wallace Attending Provider: Noble Mathur MD Referring Physician: Kareen HEALY; Exam Type: CA echo doppler color flow Study Info Indications R94.31 - Abnormal electrocardiogram ECG EKG Complete two-dimensional, color flow and Doppler transthoracic echocardiogram is performed. Strain analysis performed. Summary 1. Complete two-dimensional, color flow and Doppler transthoracic echocardiogram is performed. 2. Left ventricular chamber dimension is normal. 3. Left ventricular systolic function is normal, estimated at 60-65%. 4. There is mildly increased left ventricular wall thickness. 5. The left ventricular diastolic function is grade I diastolic dysfunction. 6. E/e' 11 is mildly elevated. 7. Global longitudinal strain is normal at -18.0%. 8. There is moderate aortic valve sclerosis. 9. There is mild aortic valve stenosis with a peak velocity of 201 cm/s, mean gradient of 8 mmHg, and aortic valve area of 1.8 cm2. 10. There is mild aortic valve regurgitation. 11. The mitral valve has mildly calcified annulus. 12. There is mild mitral valve regurgitation. 13. There is mild tricuspid valve regurgitation. 14. No pulmonary hypertension, estimated pulmonary arterial systolic pressure is 32 mmHg. 15. There is trace pulmonic regurgitation. Left Ventricle E/e' 11 is mildly elevated. Global longitudinal strain is normal at -18.0%. Left ventricular chamber dimension is normal. Left ventricular systolic function is normal, estimated at 60-65%. There is mildly increased left ventricular wall thickness. The left ventricular diastolic function is grade I diastolic dysfunction. Right Ventricle Right ventricular systolic function is normal and with normal TAPSE 1.7 cm. Right ventricular chamber dimension is normal. Left Atria Left atrial chamber dimension is normal. Right Atria Right atrial chamber dimension is normal. Aortic Valve The aortic valve is trileaflet. There is moderate aortic valve sclerosis. There is mild aortic valve stenosis with a peak velocity of 201 cm/s, mean gradient of 8 mmHg, and aortic valve area of 1.8 cm2. There is mild aortic valve regurgitation. Pulmonic Valve There is trace pulmonic regurgitation. Mitral Valve The mitral valve has mildly calcified annulus. There is no mitral valve stenosis. There is mild mitral valve regurgitation. Tricuspid Valve There is mild tricuspid valve regurgitation. No pulmonary hypertension, estimated pulmonary arterial systolic pressure is 32 mmHg. Pericardium/Pleural There is no pericardial effusion. Inferior Vena Cava Normal inferior vena cava with >50% collapse upon inspiration consistent with normal right atrial pressure, 5 mmHg. Aorta The aortic root size at the sinus of Valsalva is normal. Left Ventricular Outflow Tract Name Value Normal LVOT 2D LVOT Diameter 1.8 cm LV
== END 2020-12-28 12:25 | disposition home or self-care (01) ==
PROVIDERS: PCP Family Medicine; Visit Provider Family Medicine
DX: R94.31 Abnormal electrocardiogram [ECG] [EKG] (principal)
CPT/HCPCS: 93306

== ENCOUNTER 2021-01-17 07:41 | Outpatient (CLI) | payer MEDICARE, SELFPAY ==
--- NOTE | 2021-01-17 08:30 | EST_ITS ---
Patient Info Name: Leah Molina Age: 75 years : 1945 Gender: Female Ht: 63 in Wt: 100 lbs BSA: 1.41 m2 HR: 82 bpm BP: 184 / 88 mmHg Heart Rhythm: Sinus Rhythm Technical Quality: Excellent Exam Date: 01/17/2021 8:46 AM Exam Location: [facility] Patient Status: Outpatient Admit Date: 01/17/2021 Staff Ordering Physician: Noble Mathur MD Attending Provider: Noble Mathur MD Exercise Technologist: Otilia Shirley CRT Exercise Physician: Bruna Rivera CEP Exam Type: CA stress milagros w NM Study Info Indications AbnormalEKG - A nuclear stress test was performed. History/Risk Factors Hypertension: Yes Chronic Lung Disease: Yes Diabetes Mellitus: Yes Tobacco Use: Current - Every Day If Current - Every Day \T\ Cigarettes, Amount: Heavy Tobacco Use (>=10/day) History/Risk Factors HTN. Diabetes. Current Smoker. Lung Disease. Abnormal EKG. Summary 1. 1. Abnormal lexiscan stress test for ischemic ST changes by ECG criteria. 2. 2. Baseline hypertension. 3. 3. Nuclear scan to follow and will be reported separately. Please correlate with it. Protocol: LEXISCAN Stress ECG Details Stage: REST Duration (min): 3 min : 55 sec HR (bpm): 85 SBP (mmHg): 184 DBP (mmHg): 88 Stage: REST Duration (min): 7 min : 12 sec HR (bpm): 84 SBP (mmHg): 184 DBP (mmHg): 88 Stage: STAGE 1 Duration (min): 0 min : 10 sec HR (bpm): 82 SBP (mmHg): 184 DBP (mmHg): 88 Stage: RECOVERY Duration (min): 0 min : 49 sec HR (bpm): 118 SBP (mmHg): 184 DBP (mmHg): 88 Stage: RECOVERY Duration (min): 1 min : 49 sec HR (bpm): 114 SBP (mmHg): 174 DBP (mmHg): 67 Stage: RECOVERY Duration (min): 2 min : 49 sec HR (bpm): 115 SBP (mmHg): 178 DBP (mmHg): 68 Stage: RECOVERY Duration (min): 3 min : 49 sec HR (bpm): 110 SBP (mmHg): 171 DBP (mmHg): 61 Stage: RECOVERY Duration (min): 4 min : 49 sec HR (bpm): 106 SBP (mmHg): 177 DBP (mmHg): 68 Stage: RECOVERY Duration (min): 5 min : 49 sec HR (bpm): 113 SBP (mmHg): 162 DBP (mmHg): 69 Stage: RECOVERY Duration (min): 6 min : 3 sec HR (bpm): 109 SBP (mmHg): 162 DBP (mmHg): 69 Rest HR: 84 bpm Peak HR: 120 bpm Rest Sys BP: 184 mmHg Peak Sys BP: 178 mmHg Max Pred HR: 147 bpm % Max Pred HR: 82 % Target HR: 125 bpm Max RPP: 21,360 bpm*mmHg Termination Reason: Completed Protocol Cardiac Symptoms: Flushing, Headache, Dyspnea Total Time: 0 min : 10 sec Rest Domínguez BP: 88 mmHg Peak Domínguez BP: 68 mmHg Total Dose: 0.4 mg Resting ECG Normal sinus rhythm. Stress ECG [address] depression in inferior leads. Arrhythmias No arrhythmias were observed during the examination. Report Signatures
--- NOTE | 2021-01-17 12:26 | WPDCARIOSTRE ---
Nuclear Stress Test INDICATIONS Indications: Abnormal EKG PROCEDURE Procedure Performed: Myocardial Perf Spect-Multi Procedure: Patient underwent a lexiscan stress test and immediately was injected with 34 mCi of cardiolyte. Multiple tomographic images were obtained. These are of good quality. No evidence of decrease perfusion with stress imaging. A separate resting images were obtained after patient was injected with 10.4 mCi of cardiolyte. Multiple tomographic images were obtained. These are of good quality. There is evidence of large size, moderate severity inferior defect noted with rest imaging. CONCLUSION Conclusion: 1. Normal myocardial perfusion imaging demonstrating no perfusion defect during stress imaging. 2. No evidence of reversible ischemia. 3. Left ventriculogram demonstrates measured ejection fraction of 83% with no wall motion abnormalities. The LV is hyperdynamic. 4. Left ventricle is small with end diastolic volume of 38 ml. 5. TID is normal at 1.04.
== END 2021-01-17 07:42 | disposition home or self-care (01) ==
LOC: CHSIMG 07:42
PROVIDERS: PCP Family Medicine; Visit Provider Family Medicine
DX: R94.31 Abnormal electrocardiogram [ECG] [EKG] (principal)
CPT/HCPCS: 78452; 93017; A9502; J2785

== ENCOUNTER 2022-07-10 11:25 | Outpatient (CLI) | payer MEDICARE, SELFPAY ==
[2022-07-10 11:41] LABS: Basophils Absolute Auto 0.04 K/mm3 (0.00-0.10); Basophils Percent Auto 0.4 % (0.0-1.0); Eosinophils Absolute Auto 0.12 K/mm3 (0.02-0.50); Eosinophils Percent Auto 1.2 % (1.0-6.0); Hematocrit 42.1 % (35.0-42.0); Hemoglobin 13.7 g/dL (11.7-13.8); Immature Granulocyte Absolute 0.03 K/mm3 (0.00-0.00); Immature Granulocyte Percent A 0.3 % (0.0-0.0); Lymphocytes Absolute Auto 2.08 K/mm3 (1.10-4.50); Lymphocytes Percent Auto 21.2 % (18.0-42.0); Mean Corpuscular HGB Conc 32.5 g/dL (32.0-36.0); Mean Corpuscular Hemoglobin 32.2 pg (27.0-31.0); Mean Corpuscular Volume 99.1 fL (78.0-102.0); Monocytes Percent Auto 7.1 % (2.0-11.0); Neutrophils Absolute Auto 6.8 K/mm3 (1.7-7.2); Neutrophils Percent Auto 69.8 % (50.0-70.0); Platelet Count Result 350 K/mm3 (150-420); Red Blood Count 4.25 M/mm3 (4.20-5.40); Red Cell Distribution Width 14.2 % (11.6-14.4); White Blood Count 9.8 K/mm3 (4.8-10.8)
[2022-07-10 11:42] LABS: Appearance Urine Clear (Clear); Bilirubin Urine Negative (Negative); Blood Urine Negative (Negative); Color Urine Yellow (Yellow); Glucose Urine UA Negative (Negative); Ketones Urine Negative (Negative); Leukocyte Esterase Ur Negative (Negative); Nitrate Urine Negative (Negative); Protein Urine Negative (Negative); Specific Grav Ur 1.015 (1.010-1.020); Urobilinogen Urine 0.2 mg/dL (0.2-1.0)
[2022-07-10 11:43] LABS: Add Urine Microscopic? NO
[2022-07-10 11:49] LABS: Creatinine Urine 104.07 mg/dL (40-278); MALB Creatinine Ratio 17.5 mg/g (0-30); Microalbumin Urine Random 18.3 mg/L
[2022-07-10 11:51] LABS: Hemoglobin A1C 6.1 % (<5.7)
[2022-07-10 12:59] LABS: Alanine Aminotransferase 17 U/L (14-59); Albumin Level 3.6 g/dL (3.4-5.0); Alkaline Phosphatase 92 U/L (46-116); Anion Gap 10 mmol/L (8-16); Aspartate Amino Transferase 20 U/L (15-37); Bilirubin,Total 0.4 mg/dL (0.00-1.00); Blood Urea Nitrogen 35 mg/dL (7-18); Calcium 9.4 mg/dL (8.5-10.1); Carbon Dioxide 27 mmol/L (21-32); Chloride 102 mmol/L (98-108); Estimated Glomerular Filt Rate 52; Glucose 121 mg/dL (70-99); Osmolality Calculated 297 mOsm/kg (285-295); Potassium 5.6 mmol/L (3.5-5.1); Sodium 139 mmol/L (136-145); Thyroid Stimulating Hormone 2.25 uIU/mL (0.36-3.74); Total Protein 8.5 g/dL (6.4-8.2)
== END 2022-07-10 11:26 | disposition home or self-care (01) ==
LOC: CHSLAB 11:28
PROVIDERS: PCP Family Medicine; Visit Provider Family Medicine
DX: E11.40 Type 2 diabetes mellitus with diabetic neuropathy, unspecified (principal)
CPT/HCPCS: 36415; 80053; 81003; 82043; 83036; 84443; 85025

== ENCOUNTER 2022-07-14 13:38 | Outpatient (CLI) | payer MEDICARE, SELFPAY ==
[2022-07-14 14:41] LABS: Anion Gap 9 mmol/L (8-16); Blood Urea Nitrogen 34 mg/dL (7-18); Carbon Dioxide 27 mmol/L (21-32); Chloride 102 mmol/L (98-108); Estimated Glomerular Filt Rate 54; Glucose 126 mg/dL (70-99); Osmolality Calculated 295 mOsm/kg (285-295); Potassium 5.2 mmol/L (3.5-5.1); Sodium 138 mmol/L (136-145)
== END 2022-07-14 13:39 | disposition home or self-care (01) ==
LOC: CHSLAB 13:39
PROVIDERS: PCP Family Medicine; Visit Provider Family Medicine
DX: E87.5 Hyperkalemia (principal); E11.40 Type 2 diabetes mellitus with diabetic neuropathy, unspecified
CPT/HCPCS: 36415; 80048

== ENCOUNTER 2022-11-06 12:59 | Outpatient (CLI) | payer MEDICARE, SELFPAY ==
[2022-11-06 13:11] LABS: Basophils Absolute Auto 0.04 K/mm3 (0.00-0.10); Basophils Percent Auto 0.4 % (0.0-1.0); Eosinophils Percent Auto 3.4 % (1.0-6.0); Hematocrit 38.3 % (35.0-42.0); Hemoglobin 12.3 g/dL (11.7-13.8); Immature Granulocyte Absolute 0.04 K/mm3 (0.00-0.00); Immature Granulocyte Percent A 0.4 % (0.0-0.0); Lymphocytes Absolute Auto 2.18 K/mm3 (1.10-4.50); Lymphocytes Percent Auto 24.4 % (18.0-42.0); Mean Corpuscular HGB Conc 32.1 g/dL (32.0-36.0); Mean Corpuscular Hemoglobin 31.6 pg (27.0-31.0); Mean Corpuscular Volume 98.5 fL (78.0-102.0); Mean Platelet Volume 10.9 fl (9.2-11.8); Monocytes Absolute Auto 0.71 K/mm3 (0.10-0.90); Monocytes Percent Auto 7.9 % (2.0-11.0); Neutrophils Absolute Auto 5.7 K/mm3 (1.7-7.2); Neutrophils Percent Auto 63.5 % (50.0-70.0); Platelet Count Result 319 K/mm3 (150-420); Red Blood Count 3.89 M/mm3 (4.20-5.40); Red Cell Distribution Width 13.2 % (11.6-14.4); White Blood Count 8.9 K/mm3 (4.8-10.8)
[2022-11-06 13:44] LABS: Alanine Aminotransferase 20 U/L (14-59); Albumin Level 3.2 g/dL (3.4-5.0); Alkaline Phosphatase 103 U/L (46-116); Anion Gap 8 mmol/L (8-16); Aspartate Amino Transferase 14 U/L (15-37); Bilirubin,Total 0.3 mg/dL (0.00-1.00); Blood Urea Nitrogen 46 mg/dL (7-18); Calcium 9.7 mg/dL (8.5-10.1); Carbon Dioxide 26 mmol/L (21-32); Chloride 107 mmol/L (98-108); Estimated Glomerular Filt Rate 49; Glucose 130 mg/dL (70-99); Osmolality Calculated 305 mOsm/kg (285-295); Sodium 141 mmol/L (136-145); Total Protein 7.1 g/dL (6.4-8.2)
== END 2022-11-06 13:00 | disposition home or self-care (01) ==
LOC: CHSLAB 13:01
PROVIDERS: PCP Family Medicine; Visit Provider Family Medicine
DX: E11.40 Type 2 diabetes mellitus with diabetic neuropathy, unspecified (principal)
CPT/HCPCS: 36415; 80053; 83036; 85025

== ENCOUNTER 2022-11-09 12:23 | Outpatient (CLI) | payer MEDICARE, SELFPAY ==
[2022-11-09 12:46] LABS: Anion Gap 5 mmol/L (8-16); Blood Urea Nitrogen 35 mg/dL (7-18); Calcium 10.1 mg/dL (8.5-10.1); Carbon Dioxide 28 mmol/L (21-32); Chloride 106 mmol/L (98-108); Estimated Glomerular Filt Rate 52; Glucose 143 mg/dL (70-99); Osmolality Calculated 298 mOsm/kg (285-295); Potassium 5.6 mmol/L (3.5-5.1); Sodium 139 mmol/L (136-145)
== END 2022-11-09 12:24 | disposition home or self-care (01) ==
LOC: CHSLAB 12:25
PROVIDERS: PCP Family Medicine; Visit Provider Family Medicine
DX: E87.6 Hypokalemia (principal)
CPT/HCPCS: 36415; 80048

== ENCOUNTER 2022-11-27 12:19 | Outpatient (CLI) | payer MEDICARE, SELFPAY ==
[2022-11-27 12:36] LABS: Basophils Absolute Auto 0.03 K/mm3 (0.00-0.10); Basophils Percent Auto 0.3 % (0.0-1.0); Eosinophils Absolute Auto 0.21 K/mm3 (0.02-0.50); Hematocrit 39.8 % (35.0-42.0); Hemoglobin 12.7 g/dL (11.7-13.8); Immature Granulocyte Absolute 0.05 K/mm3 (0.00-0.00); Immature Granulocyte Percent A 0.5 % (0.0-0.0); Lymphocytes Absolute Auto 2.17 K/mm3 (1.10-4.50); Lymphocytes Percent Auto 20.7 % (18.0-42.0); Mean Corpuscular HGB Conc 31.9 g/dL (32.0-36.0); Mean Corpuscular Hemoglobin 31.9 pg (27.0-31.0); Monocytes Absolute Auto 0.89 K/mm3 (0.10-0.90); Monocytes Percent Auto 8.5 % (2.0-11.0); Neutrophils Absolute Auto 7.2 K/mm3 (1.7-7.2); Platelet Count Result 309 K/mm3 (150-420); Red Blood Count 3.98 M/mm3 (4.20-5.40); Red Cell Distribution Width 13.2 % (11.6-14.4); White Blood Count 10.5 K/mm3 (4.8-10.8)
[2022-11-27 12:50] LABS: Alanine Aminotransferase 13 U/L (14-59); Albumin Level 3.3 g/dL (3.4-5.0); Alkaline Phosphatase 106 U/L (46-116); Anion Gap 6 mmol/L (8-16); Aspartate Amino Transferase 11 U/L (15-37); Bilirubin,Total 0.3 mg/dL (0.00-1.00); Blood Urea Nitrogen 28 mg/dL (7-18); Calcium 9.5 mg/dL (8.5-10.1); Carbon Dioxide 29 mmol/L (21-32); Chloride 106 mmol/L (98-108); Estimated Glomerular Filt Rate 55; Glucose 134 mg/dL (70-99); Osmolality Calculated 299 mOsm/kg (285-295); Potassium 5.3 mmol/L (3.5-5.1); Sodium 141 mmol/L (136-145)
[2022-11-27 13:06] LABS: Hemoglobin A1C 6.6 % (<5.7)
== END 2022-11-27 12:20 | disposition home or self-care (01) ==
LOC: CHSLAB 12:21
PROVIDERS: PCP Family Medicine; Visit Provider Family Medicine
DX: E87.5 Hyperkalemia (principal); I10 Essential (primary) hypertension; E11.40 Type 2 diabetes mellitus with diabetic neuropathy, unspecified
CPT/HCPCS: 36415; 80053; 83036; 85025

== ENCOUNTER 2023-08-16 12:44 | Outpatient (CLI) | payer MEDICARE, SELFPAY ==
[2023-08-16 13:03] LABS: Basophils Absolute Auto 0.04 K/mm3 (0.00-0.10); Basophils Percent Auto 0.5 % (0.0-1.0); Eosinophils Absolute Auto 0.27 K/mm3 (0.02-0.50); Eosinophils Percent Auto 3.4 % (1.0-6.0); Hematocrit 40.2 % (35.0-42.0); Immature Granulocyte Absolute 0.02 K/mm3 (0.00-0.00); Immature Granulocyte Percent A 0.2 % (0.0-0.0); Lymphocytes Absolute Auto 2.49 K/mm3 (1.10-4.50); Mean Corpuscular HGB Conc 32.3 g/dL (32-36); Mean Corpuscular Hemoglobin 31.3 pg (27.0-31.0); Mean Corpuscular Volume 96.9 fL (78.0-102.0); Mean Platelet Volume 10.6 fl (9.2-11.8); Monocytes Percent Auto 8.7 % (2.0-11.0); Neutrophils Absolute Auto 4.52 K/mm3 (1.70-7.20); Neutrophils Percent Auto 56.2 % (50.0-70.0); Platelet Count Result 375 K/mm3 (150-420); Red Blood Count 4.15 M/mm3 (4.20-5.40); Red Cell Distribution Width 13.9 % (11.6-14.4)
[2023-08-16 13:11] LABS: MALB Creatinine Ratio 12.2 mg/g (0-30); Microalbumin Urine Random 16.4 mg/L
[2023-08-16 13:12] LABS: Hemoglobin A1C 6.4 % (<5.7)
[2023-08-16 13:54] LABS: Alanine Aminotransferase 15 U/L (14-59); Albumin Level 3.6 g/dL (3.4-5.0); Alkaline Phosphatase 87 U/L (46-116); Anion Gap 7 mmol/L (4-12); Aspartate Amino Transferase 18 U/L (15-37); Bilirubin,Total 0.3 mg/dL (0.00-1.00); Blood Urea Nitrogen 31 mg/dL (7-18); Calcium 9.6 mg/dL (8.5-10.1); Carbon Dioxide 31 mmol/L (21-32); Chloride 102 mmol/L (98-108); Estimated Glomerular Filt Rate 40; Glucose 135 mg/dL (70-99); Osmolality Calculated 298 mOsm/kg (285-295); Sodium 140 mmol/L (136-145); Thyroid Stimulating Hormone 1.14 uIU/mL (0.36-3.74); Total Protein 7.6 g/dL (6.4-8.2)
== END 2023-08-16 12:45 | disposition home or self-care (01) ==
LOC: CHSLAB 12:50
PROVIDERS: PCP Family Medicine; Visit Provider Family Medicine
DX: E11.40 Type 2 diabetes mellitus with diabetic neuropathy, unspecified (principal)
CPT/HCPCS: 36415; 80053; 82043; 83036; 84443; 85025

== ENCOUNTER 2023-11-28 14:10 | Outpatient (CLI) | payer MEDICARE, SELFPAY ==
[2023-11-28 14:26] LABS: Basophils Absolute Auto 0.04 K/mm3 (0.00-0.10); Basophils Percent Auto 0.5 % (0.0-1.0); Eosinophils Absolute Auto 0.25 K/mm3 (0.02-0.50); Eosinophils Percent Auto 2.9 % (1.0-6.0); Hematocrit 39.1 % (35.0-42.0); Hemoglobin 12.8 g/dL (11.7-13.8); Immature Granulocyte Absolute 0.02 K/mm3 (0.00-0.00); Immature Granulocyte Percent A 0.2 % (0.0-0.0); Lymphocytes Absolute Auto 2.64 K/mm3 (1.10-4.50); Lymphocytes Percent Auto 30.9 % (18.0-42.0); Mean Corpuscular HGB Conc 32.7 g/dL (32-36); Mean Corpuscular Hemoglobin 31.7 pg (27.0-31.0); Mean Corpuscular Volume 96.8 fL (78.0-102.0); Mean Platelet Volume 10.7 fl (9.2-11.8); Monocytes Absolute Auto 0.87 K/mm3 (0.10-0.90); Monocytes Percent Auto 10.2 % (2.0-11.0); Neutrophils Absolute Auto 4.72 K/mm3 (1.70-7.20); Neutrophils Percent Auto 55.3 % (50.0-70.0); Platelet Count Result 307 K/mm3 (150-420); Red Blood Count 4.04 M/mm3 (4.20-5.40); Red Cell Distribution Width 13.3 % (11.6-14.4); White Blood Count 8.5 K/mm3 (4.8-10.8)
[2023-11-28 15:26] LABS: Hemoglobin A1C 6.3 % (<5.7)
[2023-11-28 15:30] LABS: Anion Gap 8 mmol/L (4-12); Blood Urea Nitrogen 18 mg/dL (7-18); Calcium 9.6 mg/dL (8.5-10.1); Carbon Dioxide 27 mmol/L (21-32); Chloride 104 mmol/L (98-108); Cholesterol 204 mg/dL (0-200); Estimated Glomerular Filt Rate 48; Glucose 111 mg/dL (70-99); HDL Direct 78 mg/dL (40-60); LDL Cholesterol Calculated 106 mg/dL (<130); Osmolality Calculated 290 mOsm/kg (285-295); Potassium 6.1 mmol/L (3.5-5.1); Sodium 139 mmol/L (136-145); Triglycerides 98 mg/dL (0-150)
== END 2023-11-28 14:11 | disposition home or self-care (01) ==
LOC: CHSLAB 14:14
PROVIDERS: PCP Family Medicine; Visit Provider Family Medicine
DX: E11.40 Type 2 diabetes mellitus with diabetic neuropathy, unspecified (principal); E78.2 Mixed hyperlipidemia
CPT/HCPCS: 36415; 80048; 80061; 83036; 85025

== ENCOUNTER 2023-11-30 15:58 | Outpatient (CLI) | payer MEDICARE, SELFPAY ==
--- NOTE | ~2023-11-30 | XR_ITS ---
XR ribs LT 2V w CXR 2V Ordering provider: Noble Mathur MD History: . fall, chest pain/Lt. rib pain x3 days . Comparison: None. FINDINGS: BONES: Fracture of the left seventh rib. MEDIASTINUM: The cardiac silhouette is not enlarged. Prominent both justyna. LUNGS: No infiltrates, effusions or pneumothorax. Emphysematous changes. OTHER: No free air under the diaphragm. Degenerative changes of the spine. Vertebroplasty in the uppe r lumbar area. IMPRESSION: 1. Highly suggestive fracture of the left seventh rib. 2. No acute cardiopulmonary findings. Reviewed, dictated and finalized at location A.
[2023-11-30 16:41] LABS: Anion Gap 7 mmol/L (4-12); Blood Urea Nitrogen 22 mg/dL (7-18); Calcium 9.5 mg/dL (8.5-10.1); Carbon Dioxide 27 mmol/L (21-32); Chloride 105 mmol/L (98-108); Estimated Glomerular Filt Rate 45; Glucose 93 mg/dL (70-99); Osmolality Calculated 291 mOsm/kg (285-295); Potassium 5.6 mmol/L (3.5-5.1); Sodium 139 mmol/L (136-145)
== END 2023-11-30 15:59 | disposition home or self-care (01) ==
PROVIDERS: PCP Family Medicine; Visit Provider Family Medicine
DX: E87.5 Hyperkalemia (principal); R07.89 Other chest pain
CPT/HCPCS: 36415; 71046; 71100; 80048

== ENCOUNTER 2023-12-08 15:07 | Outpatient (CLI) | payer MEDICARE, SELFPAY ==
[2023-12-08 15:53] LABS: Anion Gap 11 mmol/L (4-12); Blood Urea Nitrogen 19 mg/dL (7-18); Calcium 9.5 mg/dL (8.5-10.1); Carbon Dioxide 24 mmol/L (21-32); Chloride 106 mmol/L (98-108); Estimated Glomerular Filt Rate 45; Glucose 108 mg/dL (70-99); Osmolality Calculated 295 mOsm/kg (285-295); Sodium 141 mmol/L (136-145)
== END 2023-12-08 15:08 | disposition home or self-care (01) ==
LOC: CHSLAB 15:12
PROVIDERS: PCP Family Medicine; Visit Provider Family Medicine
DX: E87.5 Hyperkalemia (principal)
CPT/HCPCS: 36415; 80048

== ENCOUNTER 2023-12-28 16:18 | Outpatient (CLI) | payer MEDICARE, SELFPAY ==
[2023-12-28 16:48] LABS: Anion Gap 10 mmol/L (4-12); Blood Urea Nitrogen 19 mg/dL (7-18); Carbon Dioxide 25 mmol/L (21-32); Chloride 105 mmol/L (98-108); Estimated Glomerular Filt Rate 45; Glucose 125 mg/dL (70-99); Osmolality Calculated 293 mOsm/kg (285-295); Potassium 5.3 mmol/L (3.5-5.1); Sodium 140 mmol/L (136-145)
== END 2023-12-28 16:19 | disposition home or self-care (01) ==
PROVIDERS: PCP Family Medicine; Visit Provider Family Medicine
DX: E87.5 Hyperkalemia (principal)
CPT/HCPCS: 36415; 80048

== ENCOUNTER 2024-02-29 18:02 | Outpatient (CLI) | payer MEDICARE, SELFPAY ==
[2024-02-29 18:19] LABS: Hematocrit 41.4 % (35.0-42.0); Hemoglobin 12.8 g/dL (11.7-13.8); Mean Corpuscular HGB Conc 30.9 g/dL (32-36); Mean Corpuscular Hemoglobin 30.4 pg (27.0-31.0); Mean Corpuscular Volume 98.3 fL (78.0-102.0); Mean Platelet Volume 10.7 fl (9.2-11.8); Platelet Count Result 381 K/mm3 (150-420); Red Blood Count 4.21 M/mm3 (4.20-5.40); Red Cell Distribution Width 13.2 % (11.6-14.4); White Blood Count 9.4 K/mm3 (4.8-10.8)
[2024-02-29 19:08] LABS: Alanine Aminotransferase 16 U/L (14-59); Albumin Level 3.7 g/dL (3.4-5.0); Alkaline Phosphatase 134 U/L (46-116); Anion Gap 6 mmol/L (4-12); Aspartate Amino Transferase 16 U/L (15-37); Bilirubin,Total 0.2 mg/dL (0.00-1.00); Blood Urea Nitrogen 14 mg/dL (7-18); Calcium 9.7 mg/dL (8.5-10.1); Carbon Dioxide 29 mmol/L (21-32); Chloride 101 mmol/L (98-108); Estimated Glomerular Filt Rate 52; Glucose 121 mg/dL (70-99); Osmolality Calculated 283 mOsm/kg (285-295); Potassium 4.8 mmol/L (3.5-5.1); Sodium 136 mmol/L (136-145); Thyroid Stimulating Hormone 1.07 uIU/mL (0.36-3.74); Total Protein 7.4 g/dL (6.4-8.2)
== END 2024-02-29 18:03 | disposition home or self-care (01) ==
LOC: CHSLAB 18:05
PROVIDERS: PCP Family Medicine; Visit Provider Family Medicine
DX: I10 Essential (primary) hypertension (principal); E11.9 Type 2 diabetes mellitus without complications
CPT/HCPCS: 36415; 80053; 83036; 84443; 85027

== ENCOUNTER 2024-05-07 14:31 | Outpatient (CLI) | payer MEDICARE, SELFPAY ==
[2024-05-07 15:10] LABS: Anion Gap 8 mmol/L (4-12); Blood Urea Nitrogen 19 mg/dL (7-18); Calcium 9.7 mg/dL (8.5-10.1); Carbon Dioxide 28 mmol/L (21-32); Chloride 101 mmol/L (98-108); Estimated Glomerular Filt Rate 47; Glucose 104 mg/dL (70-99); Osmolality Calculated 286 mOsm/kg (285-295); Sodium 137 mmol/L (136-145)
--- OUTSIDE RECORDS SUMMARY | 2024-05-07 15:58 | XMS_ITS | Clinical Summary ---
Author Organization [facility] Address [address] [place] [address] Phone Care Team Providers Care Lacquer Shader Name Role Phone Noble Mathur MD Primary Care Provider [phone] Allergies Active Allergy Reactions Criticality Noted Date Comments Antihistamines, Chlorpheniramine-Type Anxiety High 09/24/2018 And heart races Medications ALPRAZolam (XANAX PO) Take 1 mg by mouth 3 times daily. Active Mirtazapine (REMERON) 7.5 MG Tablet Take 15 mg by mouth nightly. Active propranolol (INDERAL) 20 MG Tablet Take 1 Tab by mouth 2 times daily. Active irbesartan (AVAPRO) 150 MG Tablet Take 1 Tab by mouth. Active Family History Medical History Relation Name Comments Cancer Brother bone Heart Attack Father Diabetes Mother Heart Disease Mother Relation Name Status Comments Brother Father Mother Social History Tobacco Use Types Packs/Day Years Used Date Smoking Tobacco: Every Day Cigarettes 2 50 Smokeless Tobacco: Never Tobacco Cessation:Ready to Q uit: No; Counseling Given: Yes Alcohol Use Standard Drinks/Week Comments Not Currently 0 (1 standard drink = 0.6 oz pur e alcohol) Comments Unknown Sex and Gender Information Value Date Recorded Sex Assigned at Not on file Legal Sex Female 5:40 PM CDT Gender Identity Not on file Sexual Orientation Not on file Last Filed Vital Signs Vital Sign Reading Time Taken Comments Blood Pressure 164/71 10/23/2018 12:07 PM CDT Pulse 72 10/23/2018 12:07 PM CDT Temperature 36 C (96.8 F) 10/23/2018 12:07 PM CDT Respiratory Rate 23 10/23/2018 12:07 PM CDT Oxygen Saturation 98% 10/23/2018 12:07 PM CDT Inhaled Oxygen Concentration - - Weight 39 kg (86 lb) 09/25/2018 11:00 AM CDT Height 157.5 cm (5' 2 ) 09/25/2018 11:00 AM CDT Body Mass Index 15.73 09/25/2018 11:00 AM CDT Plan of Treatment Health Maintenance Due Date Last Done Comments Hepatitis C Virus (HCV) Screening 1945 TdaP Immunization 1945 Zoster Immunization (1 of 2) 11/08/1997 Respiratory Syncytial Virus (RSV) Immunization (Adult) (1 - 1-dose 75+ series) 11/08/2022 Influenza Immunization (#1) 10/07/202311/06, 10/11/2016, 10/15/2015, Additional history exists SARS-COV-2 Immunization () 10/07/2023 12/10/2020, 05/14/2020, 04/14/2020 Pneumococcal Immunization (50+ years) Completed 10/30/2014, 07/24/2013 Pneumococcal Immunization Combined Discontinued 10/30/2014, 07/24/2013 Hepatitis B Immunization Aged Out No longer eligible based on patient's age to complete this topic Meningococcal Immunization (ACWY) Aged Out No longer eligible based on patient's age to complete this topic Rotavirus Immunization Aged Out No lo nger eligible based on patient's age to complete this topic Insurance MEDICARE [facility] Care Teams Lacquer Shader Relationship Specialty Start Date End Date Noble Mathur MD [address] [place] [address] PCP - General Pediatrics 07/02/18
--- OUTSIDE RECORDS SUMMARY | 2024-05-07 15:58 | XMS_ITS | Clinical Summary ---
Author Organization [facility] Address Counts include 234 beds at the [facility] [place] [address] Care Team Providers Care Software Product Manager Name Role Phone Noble Mathur MD Primary Care Provider [phone] Noble Mathur MD Unavailable [phone] Allergies Active Allergy Reactions Criticality Noted Date Comments Triprolidine-Pse Unknown 10/02/2017 Medications ALPRAZolam 1 MG tablet Take 1 tablet by mouth 3 (three) times daily. Active aspirin EC 325 MG Tab EC EC tablet Active Beclomethasone Diprop HFA (QVAR REDIHALER) 40 MCG/ACT AEROSOL, BREATH ACTIVATED Inhale 2 puffs into the lungs 2 (two) times daily. 8 Active budesonide-form oterol (SYMBICORT) 160-4.5 MCG/ACT inhaler Inhale 2 puffs into the lungs 2 (two) times daily. 8 Active glimepiride 2 MG tablet Take 1 tablet by mouth daily. Active Ibuprofen (ADVIL) 200 MG capsule Active irbesartan 150 MG tablet Take 1 tablet by mouth daily. Active lorazepam 1 MG tablet 8 Active metFORMIN 500 MG tablet Take 1 tablet by mouth. Active mirtazapine 7.5 MG Tab tablet Take 1.5 tablets by mouth. Active propranolol 20 MG tablet Take 1 tablet by mouth 2 (two) times daily. Active ranitidine (ZANTAC) 150 MG tablet Take 1 tablet by mouth daily as needed. Active umeclidinium-vi lanterol (ANORO ELLIPTA) 62.5-25 MCG/INH inhaler Inhale into the lungs daily. 10/23/201 8 Active nirmatrelvir & ritonavir 150/100 (PAXLOVID) 10 x 150 MG & 10 x 100MG tablet pack Take ONE nirmatrelvir 150 mg tablet with ONE ritonavir 100 mg tablet, with both tablets taken together, twice daily for 5 days. May take with or without food. Swallow tablets whole. Do not chew, break or crush. 20 tablet 3 Active Encounters Date Type Department Care Team Description 04/03/2024 12:30 PM CUSTOMER TECHNICAL SERVICES MANAGER - 04/03/2024 11:59 PM CUSTOMER TECHNICAL SERVICES MANAGER Hospital Encounter [facility] [address] [address] Joanne Araiza, TRANSITION ADVISOR Discharge Disposition: Home or Self Care (Routine Discharge) 04/03/2024 Travel from Last 3 Months Immunizations Name Administration Dates Next Due Influenza Adult (Generic) 11/27/2017 Family History Medical History Relation Comments Diabetes Father Diabetes Mother Relation Status Comments Father Mother Social History Tobacco Use Types Packs/Day Years Used Date Smoking Tobacco: Every Day Cigarettes Smokeless Tobacco: Never Tobacco Cessation:Ready to Q uit: Not Asked; Counseling Given: Not Answered Comments Unknown Sex and Gender Information Value Date Recorded Sex Assigned at Female 04/03/2024 12:33 PM CUSTOMER TECHNICAL SERVICES MANAGER Legal Sex Female 8:21 PM CDT Gender Identity Not on file Sexual Orientation Not on file Last Filed Vital Signs Vital Sign Reading Time Taken Comments Blood Pressure 131/53 05/24/2022 6:50 PM CDT Pulse 70 05/24/2022 6:50 PM CDT Temperature 36.7 C (98 F) 05/24/2022 6:50 PM CDT Respiratory Rate 22 05/24/2022 6:50 PM CDT Oxygen Saturation 94% 05/24/2022 6:50 PM CDT Inhaled Oxygen Concentration - - Weight 43.5 kg (96 lb) 05/24/2022 6:50 PM CDT Height 149.9 cm (4' 11 ) 05/24/2022 6:50 PM CDT Body Mass Index 19.39 05/24/2022 6:50 PM CDT Plan of Treatment Health Maintenance Due Date Last Done Comments Pneumococcal Vaccine: 65+ Ye ars (1 of 2 - PCV) 11/08/1953 Hepatitis C 11/08/1965 DTaP, Tdap and Td Vaccines ( 1 - Tdap) 11/08/1966 Zoster Vaccines (1 of 2) 11/08/1997 Annual Medicare Wellness Visit 11/08/2012 Dexa Scan (General) 11/08/2012 RSV Immunization or 60+ Years (1 - 1-dose 75+ series) 11/08/2022 COVID-19 Vaccine (1 - 2023-2 5 season) 2023 Meningococcal B Vaccine Aged Out No l onger eligible based on patient's age to complete this topic Meningococcal Vaccine Aged Out No de bonifacio eligible based on patient's age to complete this topic RSV Immunizations Under 20 Months Aged Out No longer eligible based on patient's age to complete this topic Procedures Procedure Name Priority Date/Time Associated Diagnosis Comments XR GI SERIES Routine 04/03/2024 1:23 PM CUSTOMER TECHNICAL SERVICES MANAGER Abdominal pain, epigastric from Last 3 Months Results * XR GI SERIES (04/03/2024 1:23 PM CUSTOMER TECHNICAL SERVICES MANAGER) Anatomical Region Laterality Modality NA Radiographic Nae ging, Radiographic Imaging 04/03/2024 1:26 PM CUSTOMER TECHNICAL SERVICES MANAGER Impressions 04/03/2024 1:28 PM CUSTOMER TECHNICAL SERVICES MANAGER IMPRESSION: Gastroesophageal reflux is present. Intraesophageal reflux is present. Small hiatal hernia. Tertiary contractions within the esophagus. These factors may predispose to the patient's symptomatology. Ordered By: JOANNE ARAIZA Interpreted By: Abilio Agarwal MD, 04/03/2024 1:26 PM Narrative 04/03/2024 1:28 PM CUSTOMER TECHNICAL SERVICES MANAGER [address] [place] [address] Procedure(s): XR GI SERIES Date of service: 04/03/2024 1:22 PM Provided clinical information: 78 years, Female, epigastric pain Procedure and materials: Fluoroscopic and radiographic evaluation of the esophagus stomach and duodenum were performed. 3.2 minutes of fluoroscopic time utilized. Dose: 74.32 mGy. Comparison studies: None. Findings: There are noted marked tertiary contractions that are present within the esophagus. Gastroesophageal and intraesophageal reflux is present during the examination. Small hiatal hernia is present. The gastric mucosal fold pattern is within normal limits. The mucosal pattern within the duodenum is unremarkable. The duodenum was not well pneumatized due to patient inability to obtain the correct positioning. There are marked tertiary contractions that are present within the esophagus which may contribute to the patient's symptomatology. Procedure Note Abilio Agarwal MD - 04/03/2024 [place] [id number] [facility] [place] [id number] Procedure(s): XR GI SERIES Date of service: 04/03/2024 1:22 PM Provided clinical information: 78 years, Female, epigastric pain Procedure and materials: Fluoroscopic and radiographic evaluation of theesophagus stomach and duodenum were performed. 3.2 minutes of fluoroscopic time utilized. Dose: 74.32 mGy. Comparison studies: None. Findings: There are noted marked tertiary contractions that are present within theesophagus. Gastroesophageal and intraesophageal reflux is present duringthe examination. Small hiatal hernia is present. The gastric mucosal fold pattern is within normal limits. The mucosal pattern within the duodenum is unremarkable. The duodenum wasnot well pneumatized due to patient inability to obtain the correctpositioning. There are marked tertiary contractions that are present within theesophagus which may contribute to the patient's symptomatology. IMPRESSION: Gastroesophageal reflux is present. Intraesophageal reflux is present.Small hiatal hernia. Tertiary contractions within the esophagus. Thesefactors may predispose to the patient's symptomatology. Ordered By: JOANNE ARAIZA Interpreted By: Abilio Agarwal MD, 04/03/2024 1:26 PM us Joanne Araiza TRANSITION ADVISOR FLUOROSCOPY Final Result from Last 3 [place] [id number] MEDICARE [employer] Care Teams Software Product Manager Relationship Specialty Start Date End Date Noble Mathur MD [address] [place] [address] PCP - General FAMILY PRACTICE 05/24/22 Noble Mathur MD [address] [place] [address] FAMILY PRACTICE 05/24/22
--- OUTSIDE RECORDS SUMMARY | 2024-05-07 15:58 | XMS_ITS | Continuity of Care Document ---
Author Organization [facility] Address [id number] [place] [address] [address] [place] [address] Phone Care Team Providers Care T Rail Turner Name Role Phone Sunita Arreguin Unavailable Unavailable Advance Directives Directive Yes / No Effective Date File Name No Information Encounters Encounter Description Practice Location Reason(s) For Visit Diagnoses Date Provider Providers Copied on Encounter [facility], [address], [place], [place], [id number], [place] tel:[phone] [facility] No Information Apr-0 5-200 5 Kallie Dorsey. [address] , [address], [place], [address], [place]. tel:[phone] Family History Family Member Type Diagnosis Age At Onset No Information Payers Payer name Insurance type Covered republican ID Authoriza tion(s) [place] [id number] Social History Type Description Quantity Date Captured Comments Sex Female Smoking Status No Information Chief Complaint And Reason For Visit No Information Reason For Referral Reason For Referral No Information History Of Present Illness Encounter Date Complaint History Of Prese nt Illness No Information Functional Status Date Functional Assessmen t No Information Instructions Date Instruction Additional Infor mation No Information Assessments Type Assessment Date No Information Patient Care Teams Name Effective Dates (start - stop) Status Members No Information
--- OUTSIDE RECORDS SUMMARY | 2024-05-07 15:58 | XMS_ITS | Encounter Summary ---
Author Organization [facility] Address [address] [place] [address] Care Team Providers Care Machine Operator Assistant Name Role Phone Noble Mathur MD Primary Care Provider [phone] Noble Mathur MD Primary Care Provider [phone] Noble Mathur MD Unavailable [phone] Encounter Details Date Type Department Care Team (Late st Contact Info) Description 07/13/2018 Abstract [facility] [address] [place] [address] , Generic ConversionMD Social History Tobacco Use Types Packs/Day Years Used Date Smoking Tobacco: Every Day Smokeless Tobacco: Never Comments Unknown Sex and Gender Information Value Date Recorded Sex Assigned at Female 04/03/2024 12:33 PM COMPRESS ENGINEER Legal Sex Female 8:21 PM CDT Gender Identity Not on file Sexual Orientation Not on file documented as of this encounter Plan of Treatment Not on file documented as of this encounter Visit Diagnoses Not on filedocumented in this encounter Additional Health Concerns Infection Onset Date Last Indicated Resolved Time COVID-19 Rule Out 05/24/2022 05/24/2022 05/24/2022 7:34 PM CDT COVID-19 Confirmed 05/24/2022 05/24/2022 12:32 AM CDT documented as of this encounter Care Teams Machine Operator Assistant Relationship Specialty Start Date End Date Noble Mathur MD [address] [place] [address] PCP - General FAMILY PRACTICE 03/22/18 05/23/22 Noble Mathur MD [address] [place] [address] PCP - General FAMILY PRACTICE 05/24/22 Noble Mathur MD [address] [place] [address] FAMILY PRACTICE 05/24/22 documented as of this encounter
== END 2024-05-07 14:32 | disposition home or self-care (01) ==
PROVIDERS: PCP Family Medicine; Visit Provider Family Medicine
DX: E87.5 Hyperkalemia (principal)
CPT/HCPCS: 36415; 80048

== ENCOUNTER 2024-05-28 16:01 | Outpatient (CLI) | payer MEDICARE, SELFPAY ==
--- NOTE | ~2024-05-28 | XR_ITS ---
EXAMINATION: XR chest 2V 05/28/2024 16:12 INDICATION: Pneumonia follow-up PROCEDURE: 2 view chest COMPARISON: Comparison to multiple prior studies sequentially, with oldest reviewed study dated 10/02. FINDINGS: The lungs are clear. The lungs are hyperinflated which is consistent with, but not diagnost ic of chronic obstructive pulmonary disease. The cardiomediastinal silhouette is within normal limits . There are no pleural effusions. There is no pneumothorax suspected. There are cholecystectomy cl ips. There are multiple compression fractures of the thoracic spine, likely chronic. IMPRESSION: 1: NO ACUTE CARDIOPULMONARY DISEASE. Reviewed, dictated and finalized at location A.
--- OUTSIDE RECORDS SUMMARY | 2024-05-28 17:35 | XMS_ITS | Encounter Summary ---
Author Organization [facility] Address [address] [place] [address] Care Team Providers Care Health Technical Writer Name Role Phone Noble Mathur MD Primary Care Provider [phone] Noble Mathur MD Primary Care Provider [phone] Noble Mathur MD Unavailable [phone] Encounter Details Date Type Department Care Team (Late st Contact Info) Description 07/13/2018 Abstract [facility] [address] [place] [address] , Generic ConversionMD Social History Tobacco Use Types Packs/Day Years Used Date Smoking Tobacco: Every Day Smokeless Tobacco: Never Comments Unknown Sex and Gender Information Value Date Recorded Sex Assigned at Female 04/03/2024 12:33 PM DIRECTOR OF CLAIMS Legal Sex Female 8:21 PM CDT Gender [...] documented as of this encounter Care Teams Health Technical Writer Relationship Specialty Start Date End Date Noble Mathur MD [address] [place] [address] PCP - General FAMILY PRACTICE 03/22/18 05/23/22 Noble Mathur MD [address] [place] [address] PCP - General FAMILY PRACTICE 05/24/22 Noble Mathur MD [address] [place] [address] FAMILY PRACTICE 05/24/22 documented as of this encounter
--- OUTSIDE RECORDS SUMMARY | 2024-05-28 17:35 | XMS_ITS | Continuity of Care Document ---
Author Organization [facility] Address [address] [place] [address] [address] [place] [address] Phone Care Team Providers Care House Painting Instructor Name Role Phone Sunita Arreguin Unavailable Unavailable Advance Directives Directive Yes / No Effective Date File Name No Information Encounters Encounter Description Practice Location Reason(s) For Visit Diagnoses Date Provider Providers Copied on Encounter [facility], [address], [place], [place], [id number], [place] tel:[phone] [facility] No Information Apr-0 5-200 5 Kallie Dorsey. [address] , [address], [place], [address], [place]. tel:[phone] Family History Family Member Type Diagnosis Age At Onset No Information Payers Payer name Insurance type Covered democrat ID Authoriza tion(s) Medicare [place] MB [id number] Social History Type Description Quantity Date Captured [...]
--- OUTSIDE RECORDS SUMMARY | 2024-05-28 17:35 | XMS_ITS | Clinical Summary ---
Author Organization [facility] Address [address] [place] [place] [address] Phone Care Team Providers Care Electrical Technology Instructor Name Role Phone Noble Mathur MD Primary Care Provider [phone] Allergies Active Allergy Reactions Criticality Noted Date [...] age to complete this topic Insurance MEDICARE [facility] Care Teams Electrical Technology Instructor Relationship Specialty Start Date End Date Noble Mathur MD [address] [place] [address] PCP - General Pediatrics 07/02/18
--- OUTSIDE RECORDS SUMMARY | 2024-05-28 17:35 | XMS_ITS | Clinical Summary ---
Author Organization [facility] Address [facility] [place] [address] Care Team Providers Care Mud Worker Name Role Phone Noble Mathur MD Primary Care Provider [phone] Noble Mathur MD Unavailable [phone] Allergies Active Allergy Reactions Criticality Noted [...] Department Care Team Description 04/03/2024 12:30 PM MICROBIOLOGY MANAGER - 04/03/2024 11:59 PM MICROBIOLOGY MANAGER Hospital Encounter [facility] [address] [place] [place] [address] Joanne Araiza, CLOTH COVERED HELMET PULLER Discharge Disposition: Home or Self Care (Routine Discharge) 04/03/2024 Travel from Last 3 Months Immunizations Immunization Administration Dates Next Due Influenza Adult (Generic) [...] Sex Assigned at Female 04/03/2024 12:33 PM MICROBIOLOGY MANAGER Legal Sex Female 8:21 PM CDT [...] Due Date Last Done Comments Hepatitis C 11/08/1965 DTaP, Tdap and Td Vaccines ( 1 - Tdap) 11/08/1966 Pneumococcal Vaccine: 50+ Ye ars (1 of 2 - PCV) 11/08/1966 Zoster Vaccines (1 of 2) 11/08/1997 [...] XR GI SERIES Routine 04/03/2024 1:23 PM MICROBIOLOGY MANAGER Abdominal pain, epigastric from Last 3 Months Results * XR GI SERIES (04/03/2024 1:23 PM MICROBIOLOGY MANAGER) Anatomical Region Laterality Modality NA Radiographic Nae ging, Radiographic Imaging 04/03/2024 1:26 PM MICROBIOLOGY MANAGER Impressions 04/03/2024 1:28 PM MICROBIOLOGY MANAGER IMPRESSION: Gastroesophageal reflux is present. Intraesophageal reflux is present. Small hiatal hernia. Tertiary contractions within the esophagus. These factors may predispose to the patient's symptomatology. Ordered By: JOANNE ARAIZA Interpreted By: Abilio Agarwal MD, 04/03/2024 1:26 PM Narrative 04/03/2024 1:28 PM MICROBIOLOGY MANAGER [address] [address] Procedure(s): XR GI SERIES Date of service: [...] Procedure Note Abilio Agarwal MD - 04/03/2024 [place] [address] [facility] [place]AS Chan [id number] Procedure(s): XR GI SERIES Date of service: [...] By: Abilio Agarwal MD, 04/03/2024 1:26 PM Joanne Araiza CLOTH COVERED HELMET PULLER FLUOROSCOPY Final Result from Last 3 Months Insurance MEDICARE [employer] Care Teams Mud Worker Relationship Specialty Start Date End Date Noble Mathur MD [address] [place] [address] PCP - General FAMILY PRACTICE 05/24/22 Noble Mathur MD [address] [place] [address] FAMILY PRACTICE 05/24/22
== END 2024-05-28 16:02 | disposition home or self-care (01) ==
PROVIDERS: PCP Family Medicine; Visit Provider Family Medicine
DX: J18.9 Pneumonia, unspecified organism (principal)
CPT/HCPCS: 71046

== ENCOUNTER 2024-06-05 16:50 | Outpatient (CLI) | payer MEDICARE, SELFPAY ==
--- OUTSIDE RECORDS SUMMARY | 2024-06-05 16:55 | XMS_ITS | Clinical Summary ---
Author Organization [facility] Address [address] [place] [address] Phone Care Team Providers Care Flower Grader Name Role Phone Noble Mathur MD Primary Care Provider [phone] Allergies Active Allergy Reactions Criticality Noted Date [...] age to complete this topic Insurance MEDICARE [facility] Care Teams Flower Grader Relationship Specialty Start Date End Date Noble Mathur MD [address] [place] [address] PCP - General Pediatrics 07/02/18
--- OUTSIDE RECORDS SUMMARY | 2024-06-05 16:55 | XMS_ITS | Clinical Summary ---
Author Organization [facility] Address [facility] [place] [address] Care Team Providers Care Conical Mixer Name Role Phone Noble Mathur MD Primary Care Provider [phone] Noble Mathur MD Unavailable Allergies Active Allergy Reactions Criticality Noted Date [...] Department Care Team Description 04/03/2024 12:30 PM RAG CUTTING MACHINE OPERATOR - 04/03/2024 11:59 PM RAG CUTTING MACHINE OPERATOR Hospital Encounter [facility] [address] [place] [address] Joanne Araiza, GOLF CLUB WEIGHTER Discharge Disposition: Home or Self Care (Routine [...] Sex Assigned at Female 04/03/2024 12:33 PM RAG CUTTING MACHINE OPERATOR Legal Sex Female 8:21 PM CDT Gender [...] XR GI SERIES Routine 04/03/2024 1:23 PM RAG CUTTING MACHINE OPERATOR Abdominal pain, epigastric from Last 3 Months Results * XR GI SERIES (04/03/2024 1:23 PM RAG CUTTING MACHINE OPERATOR) Anatomical Region Laterality Modality NA Radiographic Nae ging, Radiographic Imaging 04/03/2024 1:26 PM RAG CUTTING MACHINE OPERATOR Impressions 04/03/2024 1:28 PM RAG CUTTING MACHINE OPERATOR IMPRESSION: Gastroesophageal reflux is present. Intraesophageal reflux is present. Small hiatal hernia. Tertiary contractions within the esophagus. These factors may predispose to the patient's symptomatology. Ordered By: JOANNE ARAIZA Interpreted By: Abilio Agarwal MD, 04/03/2024 1:26 PM Narrative 04/03/2024 1:28 PM RAG CUTTING MACHINE OPERATOR [address] [place] [address] Procedure(s): XR GI SERIES Date of service: [...] Procedure Note Abilio Agarwal MD - 04/03/2024 [place] [address] [facility] [place] [id number] Procedure(s): XR GI SERIES Date of service: [...] Agarwal MD, 04/03/2024 1:26 PM Joanne Araiza GOLF CLUB WEIGHTER FLUOROSCOPY Final Result from Last 3 Months Insurance MEDICARE [employer] Care Teams Conical Mixer Relationship Specialty Start Date End Date Noble Mathur MD [address] [place] [address] PCP - General FAMILY PRACTICE 05/24/22 Noble Mathur MD [address] [place] [address] FAMILY PRACTICE 05/24/22
--- OUTSIDE RECORDS SUMMARY | 2024-06-05 16:55 | XMS_ITS | Continuity of Care Document ---
Author Organization [facility] Address [address] [place] [address] [address] [place] [address] Phone Care Team Providers Care Ice Skating Coach Name Role Phone Sunita Arreguin Unavailable Unavailable Advance Directives Directive Yes / No Effective Date File Name No Information Encounters Encounter Description Practice Location Reason(s) For Visit Diagnoses Date Provider Providers Copied on Encounter [facility], [address], [place], [place], [id number], [place] tel:[phone] [facility] No Information Apr-0 5-200 5 Kallie Dorsey. [address], [place], [address], [place]. tel:[phone] Family History Family Member Type Diagnosis Age At Onset No Information Payers Payer name Insurance type Covered constitution party ID Authoriza tion(s) [place] [id number] Social History Type Description Quantity Date Captured [...]
--- OUTSIDE RECORDS SUMMARY | 2024-06-05 16:55 | XMS_ITS | Encounter Summary ---
Author Organization [facility] Address [address] [place] [address] Care Team Providers Care Sweeper Brush Maker Machine Name Role Phone Noble Mathur MD Primary Care Provider [phone] Noble Mathur MD Primary Care Provider [phone] Noble Mathur MD Unavailable [phone] Encounter Details Date Type Department Care Team (Late st Contact Info) Description 07/13/2018 Abstract [facility]VERSION [address] [place] [address] , Generic ConversionMD Social History Tobacco Use Types Packs/Day Years Used Date Smoking Tobacco: Every Day Smokeless Tobacco: Never Comments Unknown Sex and Gender Information Value Date Recorded Sex Assigned at Female 04/03/2024 12:33 PM APPLIANCE SERVICER Legal Sex Female 8:21 PM CDT Gender [...] documented as of this encounter Care Teams Sweeper Brush Maker Machine Relationship Specialty Start Date End Date Noble Mathur MD [address] [place] [address] PCP - General FAMILY PRACTICE 03/22/18 05/23/22 Noble Mathur MD [address] [place] [address] PCP - General FAMILY PRACTICE 05/24/22 Noble Mathur MD [address] [place] [address] FAMILY PRACTICE 05/24/22 documented as of this encounter
[2024-06-05 17:41] LABS: Basophils Absolute Auto 0.04 K/mm3 (0.00-0.10); Basophils Percent Auto 0.6 % (0.0-1.0); Eosinophils Percent Auto 3.1 % (1.0-6.0); Hematocrit 37.7 % (35.0-42.0); Hemoglobin 11.6 g/dL (11.7-13.8); Immature Granulocyte Absolute 0.02 K/mm3 (0.00-0.00); Immature Granulocyte Percent A 0.3 % (0.0-0.0); Lymphocytes Absolute Auto 2.45 K/mm3 (1.10-4.50); Lymphocytes Percent Auto 37.9 % (18.0-42.0); Mean Corpuscular HGB Conc 30.8 g/dL (32-36); Mean Corpuscular Hemoglobin 29.7 pg (27.0-31.0); Mean Corpuscular Volume 96.4 fL (78.0-102.0); Mean Platelet Volume 11.1 fl (9.2-11.8); Monocytes Absolute Auto 0.54 K/mm3 (0.10-0.90); Monocytes Percent Auto 8.4 % (2.0-11.0); Neutrophils Absolute Auto 3.21 K/mm3 (1.70-7.20); Neutrophils Percent Auto 49.7 % (50.0-70.0); Platelet Count Result 330 K/mm3 (150-420); Red Blood Count 3.91 M/mm3 (4.20-5.40); Red Cell Distribution Width 15.4 % (11.6-14.4); White Blood Count 6.5 K/mm3 (4.8-10.8)
[2024-06-06 02:22] LABS: Hemoglobin A1C 6.6 % (<5.7)
[2024-06-06 08:10] LABS: Alanine Aminotransferase 20 U/L (14-59); Albumin Level 3.5 g/dL (3.4-5.0); Alkaline Phosphatase 123 U/L (46-116); Anion Gap 5 mmol/L (4-12); Aspartate Amino Transferase 19 U/L (15-37); Bilirubin,Total 0.3 mg/dL (0.00-1.00); Blood Urea Nitrogen 17 mg/dL (7-18); Calcium 9.2 mg/dL (8.5-10.1); Carbon Dioxide 30 mmol/L (21-32); Chloride 103 mmol/L (98-108); Estimated Glomerular Filt Rate 43; Glucose 133 mg/dL (70-99); Osmolality Calculated 289 mOsm/kg (285-295); Potassium 5.8 mmol/L (3.5-5.1); Sodium 138 mmol/L (136-145); Total Protein 7.3 g/dL (6.4-8.2)
== END 2024-06-05 16:51 | disposition home or self-care (01) ==
LOC: CHSLAB 16:54
PROVIDERS: PCP Family Medicine; Visit Provider Family Medicine
DX: E11.40 Type 2 diabetes mellitus with diabetic neuropathy, unspecified (principal)
CPT/HCPCS: 36415; 80053; 83036; 84443; 85025

== ENCOUNTER 2024-08-14 13:49 | Emergency (ER) | payer MEDICARE, SELFPAY ==
--- NOTE | ~2024-08-14 | CT_ITS ---
History: Head injury PROCEDURE: CT head without contrast. COMPARISON: 12/14/2020 TECHNIQUE: Axial imaging of the head performed from the skull base to the vertex without IV contrast. Sagittal a nd coronal reformations obtained. DLP: 681 mGy-cm FINDINGS: The ventricles are enlarged. The dilatation of the ventricles is proportional to the degree of sulcal prominence, not uncommon in the senescent brain. Decreased attenuation is identified within the periventricular white matter, likely secondary to micr ovascular ischemic disease, in a patient of this age. There is no mass, mass effect or midline shift. There is no abnormal extra-axial fluid collection or intracranial hemorrhage. Visualized paranasal sinuses are clear. The mastoid air cells are well aerated. No acute displaced fractures within the overlying cranium. Impression: No acute intracranial hemorrhage or suspicious mass effect. Reviewed, dictated and finalized at location A. Impression: No acute intracranial hemorrhage or suspicious mass effect.
[2024-08-14 13:50] VITALS: BP 109/61; PULSE 71; RESP 18; TEMP 36.6; O2SAT 97
--- OUTSIDE RECORDS SUMMARY | 2024-08-14 13:53 | XMS_ITS | Continuity of Care Document ---
Author Organization [facility] Address [address] [place] [address] [address] [place] [address] Phone Care Team Providers Care Wound Care Nurse Name Role Phone Sunita Arreguin Unavailable Unavailable Advance Directives Directive Yes / No Effective Date File Name No Information Encounters Encounter Description Practice Location Reason(s) For Visit Diagnoses Date Provider Providers Copied on Encounter [facility], [address], [place], [place], [id number], [place] tel:[phone] [facility] No Information Apr-0 5-200 5 Kallie Dorsey. [address] , [address], [place], [address], [place]. tel:[phone] Family History Family Member Type Diagnosis Age At Onset No Information Payers Payer name Insurance type Covered libertarian ID Authoriza tion(s) [place] [id number] Social History Type Description Quantity Date Captured [...]
--- OUTSIDE RECORDS SUMMARY | 2024-08-14 13:53 | XMS_ITS | Clinical Summary ---
Author Organization [facility] Address [facility] [place] [address] Care Team Providers Care Crib Clerk Name Role Phone Noble Mathur MD Primary Care Provider [phone] Noble Mathur MD Unavailable [phone] Allergies Active Allergy Reactions Criticality Noted [...] break or crush. 20 tablet 3 Active Immunizations Immunization Administration Dates Next Due Influenza [...] Sex Assigned at Female 04/03/2024 12:33 PM STEREO EQUIPMENT SALESPERSON Legal Sex Female 8:21 PM CDT Gender [...] 6:50 PM CDT Height 149.9 cm (4' 11) 05/24/2022 6:50 PM CDT Body Mass Index [...] - 1-dose 75+ series) 11/08/2022 COVID-19 Vaccine (2023-2 5 season) 2023 Meningococcal B Vaccine Aged Out No l onger eligible based on patient's age to complete this topic Meningococcal Vaccine Aged Out No de bonifacio eligible based on patient's age to complete this topic RSV Immunizations Under 20 Months Aged Out No longer eligible based on patient's age to complete this topic Insurance MEDICARE [facility] Care Teams Crib Clerk Relationship Specialty Start Date End Date Noble Mathur MD [address] [place] [address] PCP - General FAMILY PRACTICE 05/24/22 Noble Mathur MD [address] [place] [address] FAMILY PRACTICE 05/24/22
--- OUTSIDE RECORDS SUMMARY | 2024-08-14 13:53 | XMS_ITS | Encounter Summary ---
Author Organization [facility] Address [address] [place] [address] Care Team Providers Care Drum Carrier Name Role Phone Noble Mathur MD Primary Care Provider Noble Mathur MD Primary Care Provider [phone] Noble Mathur MD Unavailable [phone] Encounter Details Date Type Department Care Team (Late st Contact Info) Description 07/13/2018 Abstract SFL CONVERSION [address] [place] [address] , Generic ConversionMD Social History Tobacco Use Types Packs/Day Years Used Date Smoking Tobacco: Every Day Smokeless Tobacco: Never Comments Unknown Sex and Gender Information Value Date Recorded Sex Assigned at Female 04/03/2024 12:33 PM SHELL ASSEMBLER Legal Sex Female 8:21 PM CDT Gender [...] documented as of this encounter Care Teams Drum Carrier Relationship Specialty Start Date End Date Noble Mathur MD [address] [place] [address] PCP - General FAMILY PRACTICE 03/22/18 05/23/22 Noble Mathur MD [address] [place] [address] PCP - General FAMILY PRACTICE 05/24/22 Noble Mathur MD [address] [place] [address] FAMILY PRACTICE 05/24/22 documented as of this encounter
--- OUTSIDE RECORDS SUMMARY | 2024-08-14 13:53 | XMS_ITS | Clinical Summary ---
Author Organization [facility] Address [address] [place] [address] Phone Care Team Providers Care Art Specialist Name Role Phone Noble Mathur MD Primary Care Provider [phone] Allergies Active Allergy Reactions Criticality Noted Date [...] 11:00 AM CDT Height 157.5 cm (5' 2) 09/25/2018 11:00 AM CDT Body Mass Index 15.73 09/25/2018 11:00 AM CDT Plan of Treatment Health Maintenance Due Date Last Done Comments Hepatitis C Virus (HCV) Screening 1945 TdaP Immunization 1945 Zoster Immunization (1 of 2) 11/08/1997 Respiratory Syncytial Virus (RSV) Immunization (Adult) (1 - 1-dose 75+ series) 11/08/2022 SARS-COV-2 Immunization ( season) 2023 12/10/2020, 05/14/2020, 04/14/2020 Influenza Immunization (#1) 10/06/202411/06, 10/11/2016, 10/15/2015, Additional history exists Pneumococcal Immunization (50+ years) Completed 10/30/2014, 07/24/2013 Pneumococcal Immunization Combined Discontinued 10/30/2014, 07/24/2013 Hepatitis B Immunization Aged Out No longer eligible based on patient's age to complete this topic Human Papillomavirus (HPV) Immunization Aged Out No longer eligible based on patient's age to complete this topic Meningococcal Immunization (ACWY) Aged Out No longer eligible based on patient's age to complete this topic Rotavirus Immunization Aged Out No lo nger eligible based on patient's age to complete this topic Insurance MEDICARE [facility] Care Teams Art Specialist Relationship Specialty Start Date End Date Noble Mathur MD [address] [place] [address] PCP - General Pediatrics 07/02/18
[2024-08-14 14:00] VITALS: BP 123/66; PULSE 72; RESP 17; O2SAT 98
[2024-08-14 14:30] VITALS: BP 121/64; PULSE 72; RESP 17; O2SAT 98
--- OUTSIDE RECORDS SUMMARY | 2024-08-14 14:38 | XMS_ITS | Encounter Summary ---
Author Organization [facility] Address [address] [place] [address] Care Team Providers Care Sorting Cows Worker Name Role Phone Noble Mathur MD Primary Care Provider [phone] Noble Mathur MD Primary Care Provider [phone] Noble Mathur MD Unavailable [phone] Encounter Details Date Type Department Care Team (Late st Contact Info) Description 07/13/2018 Abstract SFL CONVERSION [address] [place] [address] , Generic ConversionMD Social History Tobacco Use Types Packs/Day Years Used Date Smoking Tobacco: Every Day Smokeless Tobacco: Never Comments Unknown Sex and Gender Information Value Date Recorded Sex Assigned at Female 04/03/2024 12:33 PM CYCLE LIAISON Legal Sex Female 8:21 PM CDT Gender [...] documented as of this encounter Care Teams Sorting Cows Worker Relationship Specialty Start Date End Date Noble Mathur MD [address] [place] [address] PCP - General FAMILY PRACTICE 03/22/18 05/23/22 Noble Mathur MD [address] [place] [address] PCP - General FAMILY PRACTICE 05/24/22 Noble Mathur MD [address] [place] [address] FAMILY PRACTICE 05/24/22 documented as of this encounter
--- OUTSIDE RECORDS SUMMARY | 2024-08-14 14:38 | XMS_ITS | Clinical Summary ---
Author Organization [facility] Address [facility] [place] [address] Care Team Providers Care Relief Cook Name Role Phone Noble Mathur MD Primary Care Provider [phone] Noble Mathur MD Unavailable [phone] Allergies Active Allergy Reactions Criticality Noted [...] Sex Assigned at Female 04/03/2024 12:33 PM INTERACTIVE MEDIA MARKETING DIRECTOR Legal Sex Female 8:21 PM CDT Gender [...] age to complete this topic Insurance MEDICARE [facility] Care Teams Relief Cook Relationship Specialty Start Date End Date Noble Mathur MD [address] [place] [address] PCP - General FAMILY PRACTICE 05/24/22 Noble Mathur MD [address] [place] [address] FAMILY PRACTICE 05/24/22
--- OUTSIDE RECORDS SUMMARY | 2024-08-14 14:38 | XMS_ITS | Continuity of Care Document ---
Author Organization [facility] Address [address] [place] [address] [address] [place] [address] Phone Care Team Providers Care Community Action Worker Name Role Phone Sunita Arreguin Unavailable Unavailable Advance Directives Directive Yes / No Effective Date File Name No Information Encounters Encounter Description Practice Location Reason(s) For Visit Diagnoses Date Provider Providers Copied on Encounter [facility], [address], [place], [place], [id number], [place] tel:[phone] [facility] No Information Apr-0 5-200 5 Kallie Dorsey. [address] , [address], [place], [address], [place]. tel:[phone] Family History Family Member Type Diagnosis Age At Onset No Information Payers Payer name Insurance type Covered democrat ID Authoriza tion(s) [place] [id number] Social History Type Description Quantity Date Captured [...]
--- OUTSIDE RECORDS SUMMARY | 2024-08-14 14:38 | XMS_ITS | Clinical Summary ---
Author Organization [facility] Address [address] [place] [address] Phone Care Team Providers Care Lunchroom Attendant Name Role Phone Noble Mathur MD Primary Care Provider [phone] Allergies Active Allergy Reactions Criticality Noted Date [...] age to complete this topic Insurance MEDICARE [facility] Care Teams Lunchroom Attendant Relationship Specialty Start Date End Date Noble Mathur MD [address] [place] [address] PCP - General Pediatrics 07/02/18
--- NOTE | 2024-08-14 14:45 | ED_ITS ---
HPI - Fall General Chief Complaint: Fall Stated Complaint: low blood pressure. Time Seen by Provider: 08/14/24 13:51 Source: patient, family and EMS Mode of arrival: EMS Limitations: no limitations History of Present Illness HPI Narrative: This is a 78-year-old female with history of hypertension recently started propranolol by her primary care physician and had a episode where she felt lightheaded and fell to the ground unsure if she struck her head or passed out, currently patient is doing well with no headache no blurry vision no nausea vomiting no headache. There is no fever chills no neck pain no chest pain. Initially if patient has been recently started on propranolol and had a blood pressure via EMS of 80 systolic. complaint: fall Onset (ago): hour(s) Fall from: standing Fall witnessed: yes, by family Place fall occurred: home Loss of consciousness: none Related Data Home Medications ?Medication ?Instructions ?Recorded ?Confirmed ?Last Taken ?Type alprazolam 0.5 mg tablet 0.5 mg PO BID 01/28/20 12/17/20 Unknown History amlodipine 10 mg tablet 10 mg PO DAILY 01/28/20 12/17/20 01/28/20 History metformin 500 mg tablet 500 mg PO BID 01/28/20 12/17/20 01/28/20 History mirtazapine 15 mg tablet 15 mg PO HS 01/28/20 12/17/20 01/27/20 History omeprazole 40 mg capsule,delayed 40 mg PO DAILY 01/28/20 12/17/20 01/28/20 History release irbesartan 300 mg tablet 300 mg PO DAILY 09/24/20 12/17/20 Unknown History propranolol 20 mg tablet 20 mg PO BID 09/24/20 12/17/20 Unknown History Allergies Allergy/AdvReac Type Severity Reaction Status Date / Time albuterol Allergy Unknown Unknown Verified 12/17/20 17:44 Antihistamines - Alkylamine Allergy Unknown Unknown Verified 12/17/20 17:44 atorvastatin Allergy Unknown Unknown Verified 12/17/20 17:44 ciprofloxacin Allergy Unknown Unknown Verified 12/17/20 17:44 sulfanilamide Allergy Unknown Unknown Verified 12/17/20 17:44 Review of Systems Review of Systems: All systems reviewed & are unremarkable except as noted in HPI and below PMFSH Past Medical History Medical History GERD (gastroesophageal reflux disease) Anxiety Hypertension Surgical History Surgical History Hx of cholecystectomy Previous back surgery History of hysterectomy Family History Family History Sibling Cerebrovascular accident Family history of diabetes mellitus in first degree relative Father Family history of congestive heart failure Other Family history of cardiovascular disease Social History Social History Smoking status: Current every day smoker Alcohol intake: never Substance use: never Substance use type: marijuana Last use: 12/11/2020 Living arrangements: with family Gender identity (if verbalized by the patient): Female Spiritual care concerns: No Exam Const: General: healthy appearing and no acute distress Nutritional Appearance: well nourished Orientation/consciousness: patient oriented x3 Limitations: no limitations HENMT: Head: normal to inspection Ears: external ears normal Face/Nose/Sinus: Normal external nose present Face and sinus: normal facial exam Mouth: Yes Normal oral and palatal mucosa present Eyes: Conjunctivae: conjunctivae normal Pupils: Equal, round and reactive pupils present EOM: EOMs intact bilaterally Neck: Neck: normal visual inspection, no lymphadenopathy and no meningeal signs Chest: Chest palpation & inspection: normal inspection of the chest Resp: Effort & Inspection: normal respiratory effort Auscultation: clear to auscultation bilaterally Cardio: Rate: regular rate Rhythm: regular rhythm GI: GI Palp: Yes Soft to palpation Auscultation: normal bowel sounds : General: Yes bladder normal to palpation Skin: General skin exam: normal color Rashes: no rashes Wounds: no wounds Neuro: General: patient oriented x3, moves all extremities, no meningeal signs and no focal motor deficits Extrem: General: normal to inspection, no clubbing, cyanosis or edema and no pedal edema Course Course Emergency Course: Patient CT scan shows no acute abnormalities, patient received a bolus of IV fluids and blood pressure currently 111/42. Vital Signs Vital signs: Vital Signs Temperature 36.6 C 08/14/24 13:50 Pulse Rate 71 08/14/24 13:50 Respiratory Rate 18 08/14/24 13:50 Blood Pressure 109/61 08/14/24 13:50 Pulse Oximetry 97 08/14/24 13:50 Oxygen Delivery Room Air 08/14/24 13:50 Temperature 36.6 C 08/14/24 13:50 Pulse Rate 71 08/14/24 13:50 Respiratory Rate 18 08/14/24 13:50 Blood Pressure 109/61 08/14/24 13:50 Pulse Oximetry 97 08/14/24 13:50 Oxygen Delivery Room Air 08/14/24 13:50 Critical Care Time Critical Care Time Critical Care Time: No Discharge Plan Discharge Clinical Impression: Episodic lightheadedness, Hypotensive episode Patient Disposition: Home Condition: Stable Instructions: Antibiotic Form, Lightheadedness (ED) Additional Instructions: advised patient to hold her propranolol to follow-up with her primary care physician. Patient Language: Upper Sorbian Prescriptions: No Action metformin 500 mg tablet 500 mg PO BID omeprazole 40 mg capsule,delayed release(DR/EC) 40 mg PO DAILY alprazolam 0.5 mg tablet 0.5 mg PO BID amlodipine 10 mg tablet 10 mg PO DAILY mirtazapine 15 mg tablet 15 mg PO HS propranolol 20 mg tablet 20 mg PO BID irbesartan 300 mg tablet 300 mg PO DAILY ondansetron 4 mg tablet,disintegrating 4 mg PO Q6H PRN (Reason: nausea and vomiting) Qty: 10 0RF azithromycin [Zithromax] 250 mg tablet 250 mg PO DAILY MDD 500mg 4 Days Qty: 4 0RF Rx Instructions: start on day 2 of therapy Follow-up/Referrals: Noble Mathur MD [Primary Care Provider] -
[2024-08-14 15:00] VITALS: BP 105/44; PULSE 72; RESP 17; O2SAT 98
[2024-08-14 15:06] VITALS: BP 105/62; PULSE 72; RESP 17; TEMP 36.6; O2SAT 98
== END 2024-08-14 15:06 | disposition home or self-care (01) ==
PROVIDERS: Emergency Provider Emergency Medicine; PCP Family Medicine
DX: I95.9 Hypotension, unspecified (principal); R42 Dizziness and giddiness; I10 Essential (primary) hypertension; F17.210 Nicotine dependence, cigarettes, uncomplicated
CPT/HCPCS: 70450; 99284

== ENCOUNTER 2024-09-16 14:49 | Outpatient (CLI) | payer MEDICARE, SELFPAY ==
--- NOTE | 2024-09-16 15:00 | ECHO_ITS ---
Patient Info Name: Leah Molina Age: 78 years : 1945 Gender: Female Ht: 63 in Wt: 88 lbs BSA: 1.32 m2 HR: 90 bpm BP: 169 / 66 mmHg Heart Rhythm: Sinus Rhythm Technical Quality: Good Exam Date: 09/16/2024 2:54 PM Patient Status: O Admit Date: 09/16/2024 Exam Type: CA echo doppler color flow Complete two-dimensional, color flow and Doppler transthoracic echocardiogram is performed. Fuller Brush Man: Sary Hodges Attending Provider: Noble Mathur MD Summary 1. Complete two-dimensional, color flow and Doppler transthoracic echocardiogram is performed. 2. Left ventricular chamber dimension is normal. 3. Left ventricular systolic function is normal, estimated at 65-70. 4. There is mild concentric increased left ventricular wall thickness. 5. The left ventricular diastolic function is grade I diastolic dysfunction. 6. E/e' 12 is mildly elevated. 7. Left atrial chamber dimension is moderately enlarged. 8. There is moderate aortic valve sclerosis. 9. There is moderate aortic valve stenosis with a peak velocity of 275 cm/s, mean gradient of 17 mmHg, and aortic valve area of 1.4 cm2. 10. There is mild aortic valve regurgitation. 11. There is mild mitral valve regurgitation. 12. There is mild tricuspid valve regurgitation. 13. No pulmonary hypertension, estimated pulmonary arterial systolic pressure is 33 mmHg. Left Ventricle E/e' 12 is mildly elevated. Left ventricular chamber dimension is normal. Left ventricular systolic function is normal, estimated at 65-70. There is mild concentric increased left ventricular wall thickness. The left ventricular diastolic function is grade I diastolic dysfunction. Right Ventricle Right ventricular chamber dimension is normal. Right ventricular systolic function is normal and with normal TAPSE 2.4 cm. Left Atria Left atrial chamber dimension is moderately enlarged. Right Atria Right atrial chamber dimension is normal. Aortic Valve The aortic valve is trileaflet. There is moderate aortic valve sclerosis. There is moderate aortic valve stenosis with a peak velocity of 275 cm/s, mean gradient of 17 mmHg, and aortic valve area of 1.4 cm2. There is mild aortic valve regurgitation. Pulmonic Valve There is no pulmonic regurgitation. Mitral Valve There is no mitral valve stenosis. There is mild mitral valve regurgitation. Tricuspid Valve There is mild tricuspid valve regurgitation. No pulmonary hypertension, estimated pulmonary arterial systolic pressure is 33 mmHg. Pericardium/Pleural There is no pericardial effusion. Inferior Vena Cava Normal inferior vena cava with >50% collapse upon inspiration consistent with normal right atrial pressure, 5 mmHg. Aorta The aortic root size at the sinus of Valsalva is normal. Left Ventricular Outflow Tract Name Value Normal LVOT 2D LVOT Diameter 1.9 cm LVOT Doppler LVOT Peak Velocity 125 cm/s LVOT Peak Gradient 6 mmHg LVOT Mean Gradient 3 mmHg LVOT VTI 26 cm LVOT VTI/AV VTI Ratio 0.5 LVOT Stroke Volume 70 ml LVOT CO 5.7 l/min LVOT CI 4.3 l/min/m2 Pulmonic Valve Name Value Normal RVOT Doppler RVOT Peak Velocity 95 cm/s RVOT Peak Gradient 4 mmHg PV Doppler PV Peak Velocity 123 cm/s PV Peak Gradient 6 mmHg Mitral Valve Name Value Normal MV Diastolic Function MV E Peak Velocity 78 cm/s MV A Peak Velocity 124 cm/s MV E/A 0.6 MV Decel Time (PW) 193 ms MV Annular TDI MV E/e' (Septal) 20.1 MV E/e' (Lateral) 9.2 MV E/e' (Average) 14.7 Tricuspid Valve Name Value Normal TV Regurgitation Doppler TR Peak Velocity 263 cm/s TR Peak Gradient 28 mmHg Estimated PAP/RSVP RA Pressure 5 mmHg <=5 PA Systolic Pressure 33 mmHg <36 RV Systolic Pressure 33 mmHg <36 TV Annular TDI TV Lateral Meri s' Velocity 14.5 cm/s >=9.5 Aorta Name Value Normal Ascending Aorta Ao Root Diameter (MM) 2.6 cm Ao Root Diam Index (MM) 1.9 cm/m2 Aortic Valve Name Value Normal AV Doppler AV Peak Velocity 275 cm/s AV Peak Gradient 30 mmHg AV Mean Gradient 17 mmHg AV VTI 51 cm AV Area (Cont Eq VTI) 1.4 cm2 >=3.0 AV Area (Cont Eq Bernardino) 1.2 cm2 AV DI (Bernardino) 0.46 AV Regurgitation 2D LVOT Area 2.7 cm2 Ventricles Name Value Normal LV Dimensions 2D/MM IVS Diastolic Thickness (2D) 1.4 cm 0.6-1.0 LVID Diastole (2D) 3.7 cm 3.8-5.2 LVIW Diastolic Thickness (2D) 1.1 cm 0.6-0.9 LVID Systole (2D) 2.5 cm 2.2-3.5 LVOT Diameter 1.9 cm LV Mass (2D Cubed) 156.39 g 67.00-162.00 LV Mass Index (2D Cubed) 119 g/m2 43-95 Relative Wall Thickness (2D) 0.59 <=0.42 LV Fractional Shortening/Ejection Fraction 2D/MM LV Fractional Shortening (2D) 34 % 27-45 LV EF (2D Teichholz) 64 % LV Diastolic Volume (4C MOD) 44 ml LV EF (4C MOD) 64 % LV Diastolic Volume (2C MOD) 49 ml LV EF (2C MOD) 72 % LV Diastolic Volume (BP MOD) 47 ml 46-106 LV Diastolic Volume Index (BP MOD) 35 ml/m2 29-61 LV Systolic Volume (BP MOD) 16 ml 14-42 LV Systolic Volume Index (BP MOD) 12 ml/m2 8-24 LV EF (BP MOD) 66 % 54-74 LV Diastolic Length (4C) 6.6 cm LV Systolic Length (4C) 5.0 cm LV Stroke Volume (4C MOD) 28 ml Atria Name Value Normal LA Dimensions LA Dimension (MM) 4.5 cm 2.7-3.8 LA Volume (4C A-L) 58 ml LA Volume (BP A-L) 64 ml RA Dimensions RA Systolic Major [place] Length (4C) 4.8 cm 2.2-2.8 RA Area (4C) 11.5 cm2 <=18.0 Report Signatures
--- OUTSIDE RECORDS SUMMARY | 2024-09-16 15:18 | XMS_ITS | Clinical Summary ---
Author Organization 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
--- OUTSIDE RECORDS SUMMARY | 2024-09-16 15:18 | XMS_ITS | Encounter Summary ---
Author Organization [facility] Address [address] [place] [id number] Care Team Providers Care Web Specialist Name Role Phone Noble Mathur MD Primary Care Provider [phone] Noble Mathur MD Primary Care Provider [phone] Noble Mathur MD Unavailable [phone] Encounter Details Date Type Department Care Team (Late st Contact Info) Description 07/13/2018 Abstract SFL CONVERSION [address] [place] [address] , Generic ConversionMD Social History Tobacco Use Types Packs/Day Years Used Date Smoking Tobacco: Every Day Smokeless Tobacco: Never Comments Unknown Sex and Gender Information Value Date Recorded Sex Assigned at Female 04/03/2024 12:33 PM KNITTER WIRE MESH Legal Sex Female 8:21 PM CDT Gender [...] documented as of this encounter Care Teams Web Specialist Relationship Specialty Start Date End Date Noble Mathur MD [address] [place] [address] PCP - General FAMILY PRACTICE 03/22/18 05/23/22 Noble Mathur MD [address] [place] [address] PCP - General FAMILY PRACTICE 05/24/22 Noble Mathur MD [address] [place] [address] FAMILY PRACTICE 05/24/22 documented as of this encounter
--- OUTSIDE RECORDS SUMMARY | 2024-09-16 15:18 | XMS_ITS | Clinical Summary ---
Author Organization [facility] Address [address] [place] [address] Phone Care Team Providers Care Senior Net Software Engineer Name Role Phone Noble Mathur MD Primary Care Provider [phone] Allergies Active Allergy Reactions Criticality Noted Date [...] age to complete this topic Insurance MEDICARE [facility] Care Teams Senior Net Software Engineer Relationship Specialty Start Date End Date Noble Mathur MD [address] [place] [address] PCP - General Pediatrics 07/02/18
== END 2024-09-16 14:50 | disposition home or self-care (01) ==
LOC: CHSIMG 14:50
PROVIDERS: PCP Family Medicine; Visit Provider Family Medicine
DX: I35.0 Nonrheumatic aortic (valve) stenosis (principal); I08.3 Combined rheumatic disorders of mitral, aortic and tricuspid valves
CPT/HCPCS: 93306

== ENCOUNTER 2024-11-16 12:45 | Emergency (ER) | payer MEDICARE, SELFPAY ==
--- NOTE | ~2024-11-16 | XR_ITS ---
EXAMINATION: XR ribs RT 2V w CXR 2V, 11/16/2024 14:23 CDT HISTORY: Fall, Rt. posterior chest wall pain x3 days; worsening COMPARISON: No comparisons available. Findings: No acute fracture or malalignment. No significant degenerative changes. COPD changes otherwise the lungs are clear Impression: No acute fracture or malalignment. Reviewed, dictated and finalized at location P. Impression: No acute fracture or malalignment.
--- NOTE | ~2024-11-16 | XR_ITS ---
EXAMINATION: XR hip RT 2V w AP pelvis, 11/16/2024 14:23 CDT HISTORY: fall, Rt. hip pain x3 days; worsening COMPARISON: No comparisons available. Findings: No acute fracture or malalignment. No significant degenerative changes. Soft tissues unremarkable. Impression: No acute fracture or malalignment. Reviewed, dictated and finalized at location P. Impression: No acute fracture or malalignment.
[2024-11-16 12:47] VITALS: BP 133/60; PULSE 70; RESP 16; TEMP 36.6; O2SAT 96
--- NOTE | 2024-11-16 12:50 | ED.FALL ---
HPI - Fall General Chief Complaint: Fall Stated Complaint: rt. side flank & back pain from fall Time Seen by Provider: 11/16/24 12:50 Source: patient Mode of arrival: ambulatory Limitations: no limitations History of Present Illness HPI Narrative: Patient is a 79-year-old female with a injury to her right lower ribs and her right hip after a fall 2 days ago. Patient is having continued and worsening pain on her right hip and right lower ribs. MD complaint: fall Onset (ago): day(s) (2) Fall from: standing Fall witnessed: no Place fall occurred: home Loss of consciousness: none Prolonged down time: no Symptoms prior to fall: none Context: tripped/slipped Location of injury: chest (Right lower chest), pelvis (Right) and other (Right hip) Severity: moderate Severity scale (1-10): 6 Quality: sharp Associated symptoms (after fall): denies Related Data Home Medications ?Medication ?Instructions ?Recorded ?Confirmed ?Last Taken ?Type alprazolam 0.5 mg tablet 0.5 mg PO BID 01/28/20 12/17/20 Unknown History amlodipine 10 mg tablet 10 mg PO DAILY 01/28/20 12/17/20 01/28/20 History metformin 500 mg tablet 500 mg PO BID 01/28/20 12/17/20 01/28/20 History mirtazapine 15 mg tablet 15 mg PO HS 01/28/20 12/17/20 01/27/20 History omeprazole 40 mg capsule,delayed 40 mg PO DAILY 01/28/20 12/17/20 01/28/20 History release irbesartan 300 mg tablet 300 mg PO DAILY 09/24/20 12/17/20 Unknown History propranolol 20 mg tablet 20 mg PO BID 09/24/20 12/17/20 Unknown History Allergies Allergy/AdvReac Type Severity Reaction Status Date / Time albuterol Allergy Unknown Unknown Verified 11/16/24 12:51 Antihistamines - Alkylamine Allergy Unknown Unknown Verified 11/16/24 12:51 atorvastatin Allergy Unknown Unknown Verified 11/16/24 12:51 ciprofloxacin Allergy Unknown Unknown Verified 11/16/24 12:51 sulfanilamide Allergy Unknown Unknown Verified 11/16/24 12:51 Review of Systems Review of Systems: All systems reviewed & are unremarkable except as noted in HPI and below Constitutional: Constitutional: Reports no additional constitutional complaints Eyes: Eyes: Reports no additional eye complaints ENT: Reports system reviewed and no additional complaints, except as documented Cardiovascular: Cardiovascular: Reports no additional cardiovascular complaints Respiratory: Respiratory: Reports no additional respiratory complaints Gastrointestinal: Gastrointestinal: Reports no additional gastrointestinal complaints Genitourinary: Genitourinary: Reports no additional female genitourinary complaints Musculoskeletal: Musculoskeletal: Reports no additional musculoskeletal complaints Integumentary/Breasts: Skin/Breast: Reports system reviewed and no additional complaints, except as docu Neurologic: Reports system reviewed and no additional complaints, except as documented Psychiatric: Psychiatric: Reports no additional psychiatric complaints Endocrine: Endocrine: Reports no additional endocrine complaints Hematologic/Lymphatic: Hematologic/Lymphatic: Reports no additional hematologic/lymphatic complaints Allergic/Immunologic: Allergic/Immunologic: Reports no additional allergic/immunologic complaints PMFSH Past Medical History Medical History GERD (gastroesophageal reflux disease) Anxiety Hypertension Surgical History Surgical History Hx of cholecystectomy Previous back surgery History of hysterectomy Family History Family History Sibling Cerebrovascular accident Family history of diabetes mellitus in first degree relative Father Family history of congestive heart failure Other Family history of cardiovascular disease Social History Social History Smoking status: Current every day smoker Alcohol intake: never Substance use: never Substance use type: marijuana Last use: 12/11/2020 Living arrangements: with family Gender identity (if verbalized by the patient): Female Spiritual care concerns: No Exam Const: General: healthy appearing Nutritional Appearance: well nourished Orientation/consciousness: patient oriented x3 HENMT: Head: normal to inspection Ears: external ears normal Face/Nose/Sinus: Normal external nose present Eyes: Conjunctivae: conjunctivae normal Pupils: Equal, round and reactive pupils present EOM: EOMs intact bilaterally Neck: Neck: normal visual inspection Chest: Chest palpation & inspection: normal inspection of the chest Resp: Effort & Inspection: normal respiratory effort and not labored Auscultation: clear to auscultation bilaterally and no crackles Cardio: Rate: regular rate Rhythm: regular rhythm Heart sounds: no murmurs GI: Inspection: non-distended GI Palp: Yes Soft to palpation and No Tenderness to palpation present (GI) Auscultation: normal bowel sounds : General: Yes bladder normal to palpation Back/Spine/Pelvis: Back: no CVA tenderness Other: Tender right chest mid axillary line in the lower ribs to palpation without deformity; tender right hip to palpation without deformity Skin: General skin exam: normal color Rashes: no rashes Wounds: no wounds Neuro: General: patient oriented x3, moves all extremities and no meningeal signs Extrem: General: normal to inspection, no clubbing, cyanosis or edema and no pedal edema Psych: Mental Status: mental status grossly normal Affect: normal affect Attitude: cooperative Course Vital Signs Vital signs: Vital Signs Temperature 36.6 C 11/16/24 12:47 Pulse Rate 70 11/16/24 12:47 Respiratory Rate 16 11/16/24 12:47 Blood Pressure 133/60 11/16/24 12:47 Pulse Oximetry 96 11/16/24 12:47 Oxygen Delivery Room Air 11/16/24 12:47 Temperature 36.6 C 11/16/24 12:47 Pulse Rate 70 11/16/24 12:47 Respiratory Rate 16 11/16/24 12:47 Blood Pressure 133/60 11/16/24 12:47 Pulse Oximetry 96 11/16/24 12:47 Oxygen Delivery Room Air 11/16/24 12:47 MDM - Fall MDM Narrative Medical decision making narrative: Patient is a 79-year-old female with a right sided injury to her lower ribs and right hip after a fall at home. X-rays. Pain control. Imaging Data Attestation: I personally reviewed and interpreted this imaging study as follows: Radiologist's impression: X-ray right ribs and chest was negative for acute process X-ray right hip is negative for acute process Discharge Plan Discharge Clinical Impression: Contusion of rib Qualifiers: Encounter type: initial encounter Qualified Code(s): S29.8XXA - Other specified injuries of thorax, initial encounter Contusion of hip Qualifiers: Encounter type: initial encounter Laterality: right Qualified Code(s): S70.01XA - Contusion of right hip, initial encounter Patient Disposition: Home Condition: Stable Instructions: Contusion in Adults (ED) Patient Language: Malian Prescriptions: New hydrocodone-acetaminophen 5-325 mg tablet 1 tablet PO Q8H PRN (Reason: pain) Qty: 20 0RF No Action metformin 500 mg tablet 500 mg PO BID omeprazole 40 mg capsule,delayed release(DR/EC) 40 mg PO DAILY alprazolam 0.5 mg tablet 0.5 mg PO BID amlodipine 10 mg tablet 10 mg PO DAILY mirtazapine 15 mg tablet 15 mg PO HS propranolol 20 mg tablet 20 mg PO BID irbesartan 300 mg tablet 300 mg PO DAILY ondansetron 4 mg tablet,disintegrating 4 mg PO Q6H PRN (Reason: nausea and vomiting) Qty: 10 0RF azithromycin [Zithromax] 250 mg tablet 250 mg PO DAILY MDD 500mg 4 Days Qty: 4 0RF Rx Instructions: start on day 2 of therapy Follow-up/Referrals: Noble Mathur MD [Primary Care Provider, Internal Medicine] Time of Disposition: 15:17
--- OUTSIDE RECORDS SUMMARY | 2024-11-16 13:32 | XMS_ITS | Encounter Summary ---
Author Organization [facility] Address [address] [place] [address] Care Team Providers Care Corporate Travel Agent Name Role Phone Noble Mathur MD Primary Care Provider [phone] Noble Mathur MD Primary Care Provider [phone] Nobel Mathur MD Unavailable [phone] Jt Linares MD Unavailable [phone] Encounter Details Date Type Department Care Team (Late st Contact Info) Description 07/13/2018 Abstract SFL CONVERSION [address] [place] [address] , Generic Conversion, Social History Tobacco Use Types Packs/Day Years Used Date Smoking Tobacco: Every Day Smokeless Tobacco: Never Comments Unknown Sex and Gender Information Value Date Recorded Sex Assigned at Female 04/03/2024 12:33 PM TITLE AGENT Legal Sex Female 8:21 PM CDT Gender Identity Not on file Sexual Orientation Not on file documented as of this encounter Plan of Treatment Upcoming Encounters Date Type Department Care Team (Late st Contact Info) Description 12/02/2024 2:45 PM CDT Office Visit [facility] [address] [place] [address] Jt Linares MD [address] [facility] [address] [place] [address] documented as of this encounter Visit Diagnoses Not on filedocumented in this encounter Additional Health Concerns Infection Onset Date Last Indicated Resolved Time COVID-19 Rule Out 05/24/2022 05/24/2022 05/24/2022 7:34 PM CDT COVID-19 Confirmed 05/24/2022 05/24/2022 12:32 AM CDT documented as of this encounter Care Teams Corporate Travel Agent Relationship Specialty Start Date End Date Noble Mathur MD [address] [place] [address] PCP - General FAMILY PRACTICE 03/22/18 05/23/22 Noble Mathur MD [address] [place] [address] PCP - General [facility] PRACTICE 05/24/22 Noble Mathur MD [address] [place] [address] FAMILY PRACTICE 05/24/22 Jt Linares MD [address] [facility] [address] [place] [address] [place] Director Of Archives INTERVENTIONAL CARDIOLOGY 10/02/24 documented as of this encounter
--- OUTSIDE RECORDS SUMMARY | 2024-11-16 13:32 | XMS_ITS | Clinical Summary ---
Author Organization [facility] Address [address] [place] [address] Phone Care Team Providers Care Motorcycle Service Technician Name Role Phone Noble Mathur MD Primary Care Provider [phone] Allergies Active Allergy Reactions Criticality Noted Date [...] Virus (HCV) Screening 1945 TdaP Immunization 1945 Medicare Initial AWV [id number] 01/06/1992 Zoster Immunization (1 of 2) 11/08/1997 Respiratory Syncytial Virus (RSV) Immunization (Adult) (1 - 1-dose 75+ series) 11/08/2022 Influenza Immunization (#1) 10/06/202411/06, 10/11/2016, 10/15/2015, Additional history exists SARS-COV-2 Immunization ( season) 2024 12/10/2020, 05/14/2020, 04/14/2020 Pneumococcal Immunization (50+ years) [...] age to complete this topic Insurance MEDICARE [facility] Care Teams Motorcycle Service Technician Relationship Specialty Start Date End Date Noble Mathur MD [address] [place] [address] PCP - General Pediatrics 07/02/18
--- OUTSIDE RECORDS SUMMARY | 2024-11-16 13:32 | XMS_ITS | Clinical Summary ---
Author Organization [facility] Address [address] [place] [address] Care Team Providers Care Ethanol Operations Manager Name Role Phone Noble Mathur MD Primary Care Provider [phone] Noble Mathur MD Unavailable [phone] Jt Linares MD Unavailable [phone] Allergies Active Allergy Reactions Criticality Noted Date Comments Fexofenadine-Pseudoephed Er Unknown 10/08/19 Ciprofloxacin Unknown 10/07/2024 Irbesartan Unknown 10/07/2024 Atorvastatin Unknown 10/07/2024 Lisinopril Cough 10/07/2024 Triprolidine-Pse Unknown 10/02/2017 Medications ALPRAZolam 1 MG tablet Take 1 tablet by mouth 3 (three) times daily. Active aspirin EC 325 MG Tab EC EC tablet Act krish Beclomethasone Diprop HFA (QVAR REDIHALER) 40 MCG/ACT AEROSOL, BREATH ACTIVATED Inhale 2 puffs into the lungs 2 (two) times daily. 11/28/19 18 Active budesonide-formote rol (SYMBICORT) 160-4.5 MCG/ACT inhaler Inhale 2 puffs into the lungs 2 (two) times daily. 10/03/19 18 Active glimepiride 2 MG tablet Take 1 tablet by mouth daily. Active Ibuprofen (ADVIL) 200 MG capsule Activ e irbesartan 150 MG tablet Take 1 tablet by mouth daily. Active lorazepam 1 MG tablet 11/03/19 18 Active metFORMIN 500 MG tablet Take 1 tablet (500 mg total) by mouth 2 (two) times daily with meals. Active mirtazapine (REMERON DONATO-TAB) 15 MG disintegrating tablet Take 1 tablet (15 mg total) by mouth nightly at bedtime. Active propranolol 20 MG tablet Take 1 tablet by mouth 2 (two) times daily. Active ranitidine (ZANTAC) 150 MG tablet Take 1 tablet by mouth daily as needed. Active umeclidinium-vilan terol (ANORO ELLIPTA) 62.5-25 MCG/INH inhaler Inhale into the lungs daily. 11/28/19 Active amitriptyline (ELAVIL) 10 MG tablet Take 1 tablet (10 mg total) by mouth nightly at bedtime. Active colestipol (COLESTID) 1 g tablet Take 2 tablets (2 g total) by mouth 3 (three) times daily. Active nirmatrelvir & ritonavir 150/100 (PAXLOVID) 10 x 150 MG & 10 x 100MG tablet pack Take ONE nirmatrelvir 150 mg tablet with ONE ritonavir 100 mg tablet, with both tablets taken together, twice daily for 5 days. May take with or without food. Swallow tablets whole. Do not chew, break or crush. 20 tablet 05/25/19 Active lansoprazole (PREVACID) 30 MG capsule Take 1 capsule (30 mg total) by mouth daily. Active aspirin EC 81 MG tablet Take 1 tablet (81 mg total) by mouth daily. Active metoclopramide (REGLAN) 5 MG tablet Take 1 tablet (5 mg total) by mouth 2 (two) times a day. Active metoprolol succinate ER (TOPROL-XL) 25 MG 24 hr tablet Take 1 tablet (25 mg total) by mouth daily. Active Encounters Date Type Department Care Team Description 10/07/2024 Abstract [facility] [address] [place] [address] Abstract, Doc Pccl 10/02/2024 Telephone [facility] [address] [place] [address] Jt Linares MD Referral (Dr. 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 Legal Sex Female 8:21 PM CDT Gender [...] 05/24/2022 6:50 PM CDT Plan of Treatment Upcoming Encounters Date Type Department Care Team ([facility] Contact Info) Description 12/02/2024 2:45 PM CDT Office Visit [facility] [place] [address] Jt Linares MD [address] [facility] [address] [place] [address] Health Maintenance Due Date Last Done Comments Hepatitis C 11/08/1965 DTaP, Tdap and Td Vaccines ( 1 - Tdap) 11/08/1966 Pneumococcal Vaccine: 50+ Ye ars (1 of 2 - PCV) 11/08/1966 Zoster Vaccines (1 of 2) 11/08/1997 Annual Medicare Wellness Visit 11/08/2012 Dexa Scan (General) 11/08/2012 RSV Immunization or 60+ Years (1 - 1-dose 75+ series) 11/08/2022 COVID-19 Vaccine (2023-2 5 season) 2024 Influenza Adult (#1) 2024 11/27/2017 Meningococcal B Vaccine Aged Out No l onger eligible based on patient's age to complete this topic Meningococcal Vaccine Aged Out No de bonifacio eligible based on patient's age to complete this topic RSV Immunizations Under 20 Months Aged Out No longer eligible based on patient's age to complete this topic Procedures Procedure Name Priority Date/Time Associated Diagnosis Comments ECHO GENERIC (SCAN ORDER) Routine 09/16/2024 12:00 AM CDT COMPREHENSIVE METABOLIC PANEL Routine 08/19/2024 CBC, MANUAL DIFF Routine 08/19/2024 from Last 3 Months Results * ECHO (09/16/2024 12:00 AM CDT) Anatomical Region Laterality Modality Other 09/16/2024 us Doc Pccl Scanned SCANNING Final Result * (ABNORMAL) COMPREHENSIVE METABOLIC PANEL (08/19/2024) SODIUM S/P/B 140 GLUCOSE 190 mg/dL BUN 26 CREATININE S/P/B 1.29(A) 0.5 - 1.0 CALCIUM S/P/B 9.7 POTASSIUM S/P/B 4.7 CHLORIDE S/P/B 100 GFR ESTIMATE 43 Narrative Resulting Agency Comment [facility], [place], [place] Noble Mathur MD LABORATORY Final Result * CBC, MANUAL DIFF (08/19/2024) WBC 9.8 HGB 11.4 HCT 35.4 PLT 375 Narrative Resulting Agency Comment [facility], [place], [place] Nbole Mathur MD LABORATORY Final Result from Last 3 Months Insurance MEDICARE [employer] Care Teams Ethanol Operations Manager Relationship Specialty Start Date End Date Noble Mathur MD [address] [place] [address] PCP - General FAMILY PRACTICE 05/24/22 Noble Mathur MD [address] [place] [address] FAMILY PRACTICE 05/24/22 Jt Linares MD [address] [facility] [address] [place] [address] [place] [employer] INTERVENTIONAL CARDIOLOGY 10/02/24
[2024-11-16 14:00] VITALS: BP 142/65; PULSE 69; RESP 17; O2SAT 97
[2024-11-16] MEDS: HYDROcodone/acetaminophen (*CRX) 5-325 MG TABLET 1 TAB PO (14:35)
[2024-11-16 15:00] VITALS: BP 159/63; PULSE 68; RESP 18; O2SAT 97
[2024-11-16 15:21] VITALS: BP 159/63; PULSE 68; RESP 18; TEMP 36.6; O2SAT 97
== END 2024-11-16 15:21 | disposition home or self-care (01) ==
PROVIDERS: Emergency Provider Emergency Medicine; PCP Family Medicine
DX: S29.8XXA Other specified injuries of thorax, initial encounter (principal); S70.01XA Contusion of right hip, initial encounter; I10 Essential (primary) hypertension; F17.200 Nicotine dependence, unspecified, uncomplicated; W19.XXXA Unspecified fall, initial encounter
CPT/HCPCS: 71046; 71100; 73502; 99284; A9270

== ENCOUNTER 2025-01-08 15:07 | Emergency (ER) | payer MEDICARE, SELFPAY ==
[2025-01-08 15:09] VITALS: BP 186/77; PULSE 76; RESP 14; TEMP 36.6; O2SAT 96
--- NOTE | 2025-01-08 15:30 | ED.FALL ---
HPI - Fall General Chief Complaint: Fall Stated Complaint: fall, left knee pain, cant see out of left eye Time Seen by Provider: 01/08/25 15:13 Source: patient and family Mode of arrival: ambulatory Limitations: no limitations History of Present Illness HPI Narrative: This is a 79-year-old female that had a fall approximately 4 days ago had a head injury with no loss of consciousness presents with some visual disturbance of the left eye does have a history of macular degeneration left eye is affected greater than the right eye follows with Ophthalmology. Headers currently no neurological deficits no bruising on the facial bone area are bruising of the the scalp. There is no nausea vomiting no fever chills no chest pain no shortness on breath. The patient also complains of left knee pain with palpation and movement. MD complaint: fall Onset (ago): day(s) Fall from: standing Fall witnessed: yes, by family Place fall occurred: home Loss of consciousness: none Prolonged down time: no Symptoms prior to fall: none Context: tripped/slipped Location of injury: head, face and other Location of injury - extremities: Left: knee (Tender with palpation and movement) Severity: moderate Related Data Home Medications ?Medication ?Instructions ?Recorded ?Confirmed ?Last Taken ?Type alprazolam 0.5 mg tablet 0.5 mg PO BID 01/28/20 12/17/20 Unknown History amlodipine 10 mg tablet 10 mg PO DAILY 01/28/20 12/17/20 01/28/20 History metformin 500 mg tablet 500 mg PO BID 01/28/20 12/17/20 01/28/20 History mirtazapine 15 mg tablet 15 mg PO HS 01/28/20 12/17/20 01/27/20 History omeprazole 40 mg capsule,delayed 40 mg PO DAILY 01/28/20 12/17/20 01/28/20 History release irbesartan 300 mg tablet 300 mg PO DAILY 09/24/20 12/17/20 Unknown History propranolol 20 mg tablet 20 mg PO BID 09/24/20 12/17/20 Unknown History Allergies Allergy/AdvReac Type Severity Reaction Status Date / Time albuterol Allergy Unknown Unknown Verified 11/16/24 12:51 Antihistamines - Alkylamine Allergy Unknown Unknown Verified 11/16/24 12:51 atorvastatin Allergy Unknown Unknown Verified 11/16/24 12:51 ciprofloxacin Allergy Unknown Unknown Verified 11/16/24 12:51 sulfanilamide Allergy Unknown Unknown Verified 11/16/24 12:51 Review of Systems Review of Systems: All systems reviewed & are unremarkable except as noted in HPI and below PMFSH Past Medical History Medical History GERD (gastroesophageal reflux disease) Anxiety Hypertension Surgical History Surgical History Hx of cholecystectomy Previous back surgery History of hysterectomy Family History Family History Sibling Cerebrovascular accident Family history of diabetes mellitus in first degree relative Father Family history of congestive heart failure Other Family history of cardiovascular disease Social History Social History Smoking status: Current every day smoker Alcohol intake: never Substance use: never Substance use type: marijuana Last use: 12/11/2020 Living arrangements: with family Gender identity (if verbalized by the patient): Female Spiritual care concerns: No Exam Const: General: healthy appearing, no acute distress and alert Nutritional Appearance: well nourished and thin Orientation/consciousness: patient oriented x3 Limitations: no limitations HENMT: Head: normal to inspection Ears: external ears normal Face and sinus: normal facial exam Eyes: Conjunctivae: conjunctivae normal Pupils: Equal, round and reactive pupils present EOM: EOMs intact bilaterally Other: Decreased visual acuity of the left eye Neck: Neck: normal visual inspection and no lymphadenopathy Chest: Chest palpation & inspection: normal inspection of the chest Resp: Effort & Inspection: normal respiratory effort Auscultation: clear to auscultation bilaterally Cardio: Rate: regular rate Rhythm: regular rhythm GI: GI Palp: Yes Soft to palpation Auscultation: normal bowel sounds Skin: General skin exam: normal color Rashes: no rashes Wounds: no wounds Neuro: General: patient oriented x3, moves all extremities, no meningeal signs and no focal motor deficits Extrem: Other: Left anterior knee tenderness with palpation and movement Course Course Emergency Course: Medical decision making Mulu of: Patient was evaluated by myself in the emergency department. History obtained from the patient and or independent historian. Diltiazem performed witnessed by attack. External medical records were reviewed at this time. At this time CT scanner is currently down and advised patient to have a CT scan of the brain and facial bones including the orbits. Patient is agreeable to transfer to [facility] and after speaking to Shima the LINE INSPECTOR at [facility] they accepted the patient for transfer. Repeat assessment: Patient doing well on repeat exam with no acute distress Symptoms are stable since arrival to the emergency department Repeat vitals are stable Patient and are agreeable to transfer from the ED to ED to [facility]. All questions answered to the patient and 's satisfaction. Vital Signs Vital signs: Vital Signs Temperature 36.6 C 01/08/25 15:09 Pulse Rate 76 01/08/25 15:09 Respiratory Rate 14 01/08/25 15:09 Blood Pressure 186/77 H 01/08/25 15:09 Pulse Oximetry 96 01/08/25 15:09 Oxygen Delivery Room Air 01/08/25 15:09 Temperature 36.6 C 01/08/25 15:09 Pulse Rate 76 01/08/25 15:09 Respiratory Rate 14 01/08/25 15:09 Blood Pressure 186/77 H 01/08/25 15:09 Pulse Oximetry 96 01/08/25 15:09 Oxygen Delivery Room Air 01/08/25 15:09 [facility] Differential Diagnosis Differential Diagnosis: Brain bleed Critical Care Time Critical Care Time Critical Care Time: No Discharge Plan Discharge Clinical Impression: Visual disturbance, Head injury, Acute knee pain Patient Disposition: Acute Care Hospital Condition: Stable Patient Language: Belarusian Prescriptions: No Action metformin 500 mg tablet 500 mg PO BID omeprazole 40 mg capsule,delayed release(DR/EC) 40 mg PO DAILY alprazolam 0.5 mg tablet 0.5 mg PO BID amlodipine 10 mg tablet 10 mg PO DAILY mirtazapine 15 mg tablet 15 mg PO HS propranolol 20 mg tablet 20 mg PO BID irbesartan 300 mg tablet 300 mg PO DAILY ondansetron 4 mg tablet,disintegrating 4 mg PO Q6H PRN (Reason: nausea and vomiting) Qty: 10 0RF azithromycin [Zithromax] 250 mg tablet 250 mg PO DAILY MDD 500mg 4 Days Qty: 4 0RF Rx Instructions: start on day 2 of therapy hydrocodone-acetaminophen 5-325 mg tablet 1 tablet PO Q8H PRN (Reason: pain) Qty: 20 0RF Follow-up/Referrals: Noble Mathur MD [Primary Care Provider, Internal Medicine] Time of Disposition: 15:36
[2025-01-08 15:47] VITALS: RESP 20; O2SAT 98
[2025-01-08 15:50] VITALS: BP 181/77; PULSE 78; RESP 20; TEMP 36.8; O2SAT 95
== END 2025-01-08 16:08 | disposition short-term general hospital (02) ==
PROVIDERS: Emergency Provider Emergency Medicine; PCP Family Medicine
DX: H53.8 Other visual disturbances (principal); S09.90XA Unspecified injury of head, initial encounter; M25.562 Pain in left knee; I10 Essential (primary) hypertension; F17.200 Nicotine dependence, unspecified, uncomplicated; W01.0XXA Fall on same level from slipping, tripping and stumbling without subsequent striking against object, initial encounter
CPT/HCPCS: 99285

== ENCOUNTER 2025-01-08 16:43 | Emergency (ER) | payer MEDICARE, SELFPAY ==
--- NOTE | ~2025-01-08 | CT_ITS ---
EXAMINATION: CT brain wo con, CT orbit BI wo con DATE: 01/08/2025 17:13 INDICATION: Head injury with loss of vision TECHNIQUE: 1. Computed tomography (CT) of the head was performed without intravenous contrast. Sagittal and coronal reconstructions were performed. The mA was adjusted according to patient size. Iterative reconstruction technique was employed. The dose-length product was 194.38 mGy-cm. 2. CT of the orbits was performed without intravenous contrast. Sagittal and coronal reconstructions were performed. Automated exposure control and iterative reconstruction technique were employed. The dose-length product was 194.38 mGy-cm. COMPARISON: 08/14/2024 FINDINGS: No maxillofacial or calvarial fractures. No acute intracranial hemorrhage, acute infarction or abnormal extra axial fluid collection. There is mild scattered white matter hypoattenuation consistent with chronic small vessel ischemic disease. Symmetric prominence of the sulci consistent with mild age-appropriate diffuse cerebral volume loss. Ventricles are normal and symmetric. No mass/mass effect. Changes of bilateral intraocular lens replacement. There is increased density posteriorly in the left orbit which tapers in thickness tearing the region of the optic disc with configuration most suggestive of retinal hemorrhage. The paranasal sinuses and mastoid air cells are normal. IMPRESSION: 1. Aging brain. No fracture or acute intracranial process. 2. Left intraorbital, likely retinal hemorrhage. Reviewed, dictated and finalized at location A. [facility] [employer] IMPRESSION: 1. Aging brain. No fracture or acute intracranial process. 2. Left intraorbital, likely retinal hemorrhage.
--- NOTE | ~2025-01-08 | XR_ITS ---
EXAMINATION: XR knee LT 3V, 01/08/2025 17:12 [facility] HISTORY: fall 4 days ago, pain COMPARISON: No comparisons available. Findings: No acute fracture or malalignment. No significant degenerative changes. Soft tissues unremarkable. Impression: No acute fracture or malalignment. Reviewed, dictated and finalized at location [facility] Impression: No acute fracture or malalignment.
[2025-01-08 16:49] VITALS: BP 196/64; PULSE 68; RESP 18; TEMP 36.4; O2SAT 96
--- NOTE | 2025-01-08 17:28 | ED.GENADULT ---
HPI - General Adult General Chief complaint: Fall Stated complaint: head injury Time Seen by Provider: 01/08/25 16:48 History of Present Illness HPI narrative: Patient is a 79-year-old female who presents ER with loss of vision in her left eye. She had a fall 4 days ago when she tripped over dog and hit her head on her seeing. The next day she cannot see out of her left eye and has been that way since then. She cannot sense light. She does also have some pain in her left knee though she is able to walk. She had no loss of consciousness when she fell. She does take a baby aspirin daily. No reports of flashers or floaters in the left eye. Related Data Home Medications ?Medication ?Instructions ?Recorded ?Confirmed ?Last Taken ?Type alprazolam 0.5 mg tablet 0.5 mg PO BID 01/28/20 12/17/20 Unknown History amlodipine 10 mg tablet 10 mg PO DAILY 01/28/20 12/17/20 01/28/20 History metformin 500 mg tablet 500 mg PO BID 01/28/20 12/17/20 01/28/20 History mirtazapine 15 mg tablet 15 mg PO HS 01/28/20 12/17/20 01/27/20 History omeprazole 40 mg capsule,delayed 40 mg PO DAILY 01/28/20 12/17/20 01/28/20 History release irbesartan 300 mg tablet 300 mg PO DAILY 09/24/20 12/17/20 Unknown History propranolol 20 mg tablet 20 mg PO BID 09/24/20 12/17/20 Unknown History Allergies Allergy/AdvReac Type Severity Reaction Status Date / Time albuterol Allergy Unknown Unknown Verified 01/08/25 16:57 Antihistamines - Alkylamine Allergy Unknown Unknown Verified 01/08/25 16:57 atorvastatin Allergy Unknown Unknown Verified 01/08/25 16:57 ciprofloxacin Allergy Unknown Unknown Verified 01/08/25 16:57 sulfanilamide Allergy Unknown Unknown Verified 01/08/25 16:57 Review of Systems Review of Systems: All systems reviewed & are unremarkable except as noted in HPI and below Constitutional: Constitutional: Reports no additional constitutional complaints Eyes: Eyes: Reports no additional eye complaints ENT: Reports system reviewed and no additional complaints, except as documented Neurologic: Reports system reviewed and no additional complaints, except as documented [facility] Past Medical History Medical History GERD (gastroesophageal reflux disease) Anxiety Hypertension Surgical History Surgical History Hx of cholecystectomy Previous back surgery History of hysterectomy Family History Family History Sibling Cerebrovascular accident Family history of diabetes mellitus in first degree relative Father Family history of congestive heart failure Other Family history of cardiovascular disease Social History Social History Smoking status: Current every day smoker Alcohol intake: never Substance use: never Substance use type: marijuana Last use: 12/11/2020 Living arrangements: with family Gender identity (if verbalized by the patient): Female Spiritual care concerns: No Exam Narrative: GENERAL: Well-appearing, well-nourished, and in no acute distress. HEAD: Normocephalic, atraumatic. EYES: PERRL and EOMI. Visual acuity right eye 20/200, unable to perform visual acuity left eye as she cannot sense light and cannot see my fingers. Left eye pressure 15 mmHg, right eye pressure 20 mmHg. Unable to sense light reflex on left side with ophthalmoscope, light reflex present the right side. No tenderness over left restoration. ENT: Mucous membranes moist. CHEST: Clear to auscultation. No respiratory distress. HEART: Regular rate and rhythm. Normal peripheral pulses. EXTREMITIES: Normal range of motion. No edema. SKIN: Warm, dry, no rash. NEURO: Alert and oriented x3. PSYCH: Normal mood and affect. Course Course Emergency Course: Discussed case with [facility] Dr. De La Cruz. Patient declines transfer to be seen in the ER tonight and will instead follow-up tomorrow afternoon at 1:30 p.m. for further evaluation. Patient is being given a disc with her images for follow-up. Vital Signs Vital signs: Vital Signs Temperature 97.6 F 01/08/25 16:49 Pulse Rate 68 01/08/25 16:49 Respiratory Rate 18 01/08/25 16:49 Blood Pressure 196/64 H 01/08/25 16:49 Pulse Oximetry 96 01/08/25 16:49 Oxygen Delivery Room Air 01/08/25 16:49 Temperature 97.6 F 01/08/25 16:49 Pulse Rate 68 01/08/25 16:49 Respiratory Rate 18 01/08/25 16:49 Blood Pressure 196/64 H 01/08/25 16:49 Pulse Oximetry 96 01/08/25 16:49 Oxygen Delivery Room Air 01/08/25 16:49 MDM Differential Diagnosis Differential Diagnosis: Close head injury, retinal detachment, retinal hemorrhage, glaucoma, temporal arteritis Imaging Data Radiologist's impression: ITS Impressions Head CT 01/08/25 17:14 IMPRESSION: 1. Aging brain. No fracture or acute intracranial process. 2. Left intraorbital, likely retinal hemorrhage. Orbit CT 01/08/25 17:14 IMPRESSION: 1. Aging brain. No fracture or acute intracranial process. 2. Left intraorbital, likely retinal hemorrhage. Knee X-Ray 01/08/25 17:18 Impression: No acute fracture or malalignment. Discharge Plan Discharge Clinical Impression: Retinal hemorrhage Patient Disposition: Home Condition: Stable Instructions: Retinal Hemorrhage (ED) Additional Instructions: You will be seen at [facility] in the ophthalmology office tomorrow at 1:30 p.m.. Do not be late for your appointment. Make sure to to arrive 20 minutes early to allow time for parking and registration. Bring the provided CT to your appointment Return the ER if you have worsening symptoms, you suffer a new injury, or you have additional concerns. Patient Language: Libyan Prescriptions: No Action metformin 500 mg tablet 500 mg PO BID omeprazole 40 mg capsule,delayed release(DR/EC) 40 mg PO DAILY alprazolam 0.5 mg tablet 0.5 mg PO BID amlodipine 10 mg tablet 10 mg PO DAILY mirtazapine 15 mg tablet 15 mg PO HS propranolol 20 mg tablet 20 mg PO BID irbesartan 300 mg tablet 300 mg PO DAILY ondansetron 4 mg tablet,disintegrating 4 mg PO Q6H PRN (Reason: nausea and vomiting) Qty: 10 0RF azithromycin [Zithromax] 250 mg tablet 250 mg PO DAILY MDD 500mg 4 Days Qty: 4 0RF Rx Instructions: start on day 2 of therapy hydrocodone-acetaminophen 5-325 mg tablet 1 tablet PO Q8H PRN (Reason: pain) Qty: 20 0RF Follow-up/Referrals: Michael De La Cruz [Other] - 01/09/25 1:30 pm Noble Mathur MD [Primary Care Provider, Internal Medicine]
--- OUTSIDE RECORDS SUMMARY | 2025-01-08 17:41 | XMS_ITS | Clinical Summary ---
Author Organization [facility] Address [address] [place] [address] Phone Care Team Providers Care [employer] Principal Name Role Phone Noble Mathur MD Primary Care Provider [phone] Allergies Active Allergy Reactions Criticality Noted Date [...] age to complete this topic Insurance MEDICARE [facility] Care Teams Middle [employer] Principal Relationship Specialty Start Date End Date Noble Mathur MD [address] [place] [address] PCP - General Pediatrics 07/02/18
--- OUTSIDE RECORDS SUMMARY | 2025-01-08 17:41 | XMS_ITS | Encounter Summary ---
Author Organization [facility] Address [address] [place] [address] Care Team Providers Care Postdoctoral Scholar Name Role Phone Noble Mathur MD Primary Care Provider [phone] Noble Mathur MD Primary Care Provider [phone] Noble Mathur MD Unavailable [phone] Jt Linares MD Unavailable [phone] Encounter Details Date Type Department Care Team (Late Contact Info) Description 07/13/2018 Abstract [facility] CONVERSION [address] [place] [address] , Generic Conversion, Social History Tobacco Use Types Packs/Day Years Used Date Smoking Tobacco: Every Day Smokeless Tobacco: Never Comments Unknown Sex and Gender Information Value Date Recorded Sex Assigned at Female 04/03/2024 12:33 PM LITIGATION ASSOCIATE Legal Sex Female 8:21 PM CDT Gender Identity Not on file Sexual Orientation Not on file documented as of this encounter Plan of Treatment Upcoming Encounters Date Type Department Care Team (Late Contact Info) Description 03/03/2025 1:00 PM LITIGATION ASSOCIATE Office Visit [facility] [address] [place] [address] Jt Linares MD [address] [place] [address] [address] 03/03/2025 1:00 PM LITIGATION ASSOCIATE Appointment [facility] Cardiology [address] [place], [place] [address] Jt Linares MD [address] [facility] [address] [place] [address] documented as of this encounter Visit Diagnoses Not on filedocumented in this encounter Additional Health Concerns Infection Onset Date Last Indicated Resolved Time COVID-19 Rule Out 05/24/2022 05/24/2022 05/24/2022 7:34 PM CDT COVID-19 Confirmed 05/24/2022 05/24/2022 12:32 AM CDT documented as of this encounter Care Teams Postdoctoral Scholar Relationship Specialty Start Date End Date Noble Mathur MD [address] [place] [address] PCP - General FAMILY PRACTICE 03/22/18 05/23/22 Noble Mathur MD [address] [place] [address] PCP - General FAMILY PRACTICE 05/24/22 Noble Mathur MD [address] [place] [address] FAMILY PRACTICE 05/24/22 Jt Linares MD [address] , [facility] [address] [place] [address] [place] [employer] INTERVENTIONAL CARDIOLOGY 10/02/24 documented as of this encounter
== END 2025-01-08 18:57 | disposition home or self-care (01) ==
PROVIDERS: Emergency Provider Emergency Medicine; PCP Family Medicine
DX: H35.62 Retinal hemorrhage, left eye (principal); S89.92XA Unspecified injury of left lower leg, initial encounter; I10 Essential (primary) hypertension; H35.30 Unspecified macular degeneration; K21.9 Gastro-esophageal reflux disease without esophagitis; F41.9 Anxiety disorder, unspecified; F17.200 Nicotine dependence, unspecified, uncomplicated; Z79.82 Long term (current) use of aspirin; Z79.84 Long term (current) use of oral hypoglycemic drugs; Z79.899 Other long term (current) drug therapy; W01.0XXA Fall on same level from slipping, tripping and stumbling without subsequent striking against object, initial encounter
CPT/HCPCS: 70450; 70480; 73562; 99284

== ENCOUNTER 2025-01-30 15:43 | Outpatient (CLI) | payer MEDICARE, SELFPAY ==
[2025-01-30 16:03] LABS: Hematocrit 35.2 % (35.0-42.0); Hemoglobin 11.0 g/dL (11.7-13.8); Immature Granulocyte Percent A 0.3 % (0.0-0.0); Lymphocytes Absolute Auto 2.40 K/mm3 (1.10-4.50); Mean Corpuscular HGB Conc 31.3 g/dL (32-36); Mean Corpuscular Hemoglobin 31.7 pg (27.0-31.0); Mean Corpuscular Volume 101.4 fL (78.0-102.0); Nucleated Red Blood Cells Absolute Auto 0.00 K/mm3 (0.00-0.00); Nucleated Red Blood Cells Perc 0.0 % (0-0.0); Platelet Count Result 363 K/mm3 (150-420); Red Blood Count 3.47 M/mm3 (4.20-5.40); White Blood Count 9.0 K/mm3 (4.8-10.8)
[2025-01-30 18:54] LABS: Alanine Aminotransferase 17 U/L (6-35); Albumin Level 4.0 g/dL (3.5-5.1); Alkaline Phosphatase 99 U/L (38-126); Anion Gap 9 mmol/L (4-12); Aspartate Amino Transferase 24 U/L (14-36); Bilirubin,Total 0.1 mg/dL (0.2-1.3); Blood Urea Nitrogen 28 mg/dL (7-17); Calcium 9.6 mg/dL (8.4-10.2); Carbon Dioxide 30 mmol/L (22-30); Chloride 102 mmol/L (98-107); Estimated Glomerular Filt Rate 35; Glucose 109 mg/dL (65-110); Osmolality Calculated 298 mOsm/kg (285-295); Potassium 5.1 mmol/L (3.4-5.0); Sodium 141 mmol/L (137-145); Total Protein 7.0 g/dL (6.3-8.2)
[2025-01-30 18:57] LABS: Hemoglobin A1C 5.7 % (<5.7)
[2025-01-30 19:36] LABS: Thyroid Stimulating Hormone 0.699 uIU/mL (0.465-4.680)
[2025-02-05 11:08] LABS: Renin Activity, Plasma <0.167 ng/mL/hr (0.167-5.380)
== END 2025-01-30 15:44 | disposition home or self-care (01) ==
PROVIDERS: PCP Family Medicine; Visit Provider Family Medicine
DX: I10 Essential (primary) hypertension (principal); E11.40 Type 2 diabetes mellitus with diabetic neuropathy, unspecified
CPT/HCPCS: 36415; 80053; 82088; 83036; 84244; 84443; 85025